=== PATIENT | male | born 1960 | race African-American/Black ===

== ENCOUNTER 2016-05-22 13:25 | Emergency (ER) | payer MEDICARE, MEDICAID ==
--- NOTE | 2016-05-22 13:51 | ER Document Report ---
ED Medical Screen (RME) - General Stated Complaint: DIFFICULTY BREATHING Notes: 55 yo male c/o shortness of breath x 2 days. no fever. + hx/o CHF. diagnosed with bronchitis + labored respiratory effort. coarse breath sounds throughout. Sat 97% TRAVEL OUTSIDE OF THE [place] IN LAST 30 DAYS: No - Related Data Allergies/Adverse Reactions: No Known Allergies Allergy (Verified 05/22/16 13:49) Past Medical History - Past Medical History Cardiac Medical History: Reports: Hx Congestive Heart Failure, Hx Coronary Artery Disease, Hx Hypercholesterolemia, Hx Hypertension Pulmonary Medical History: Denies: Hx Tuberculosis Psychiatric Medical History: Denies: Hx Depression Past Surgical History: Reports: Hx Cardiac Catheterization - x3, Hx Coronary Stent - Immunizations Immunizations up to date: Yes Hx Diphtheria, Pertussis, Tetanus Vaccination: Yes Physical Exam - Vital signs Vitals: Temp Pulse Resp BP Pulse Ox 97.8 F 98 28 H 109/88 H 98 05/22/16 13:47 05/22/16 13:47 05/22/16 13:47 05/22/16 13:47 05/22/16 13:47 Course - Vital Signs Vital signs: Temp Pulse Resp BP Pulse Ox 97.8 F 98 28 H 109/88 H 98 05/22/16 13:47 05/22/16 13:47 05/22/16 13:47 05/22/16 13:47 05/22/16 13:47
[2016-05-22] MEDS ORDERED: ALBUTEROL SULFATE 0.083% NEB 2.5 MG/3 ML AMPUL NEB ONE (13:53)
[2016-05-22 14:22] LABS: ABSOLUTE BASOPHILS # (AUTO) 0.1 10^3/uL (0.0-0.2); ABSOLUTE EOSINOPHILS # (AUTO) 0.1 10^3/uL (0.0-0.6); ABSOLUTE LYMPHOCYTES (AUTO) 1.9 10^3/uL (0.5-4.7); ABSOLUTE MONOCYTES (AUTO) 0.5 10^3/uL (0.1-1.4); ABSOLUTE NEUT (AUTO) 3.8 10^3/uL (1.7-8.2); BASOPHILS % (AUTO) 1.1 % (0-2); EOSINOPHILS % (AUTO) 0.9 % (0-6); HEMATOCRIT 44.8 % (37.9-51.0); HEMOGLOBIN 14.4 g/dL (13.5-17.0); HGB HCT DIFFERENCE -1.6; LYMPHOCYTES % (AUTO) 30.3 % (13-45); MEAN CORPUSCULAR HEMOGLOBIN 30.2 pg (27.0-33.4); MEAN CORPUSCULAR HGB CONC 32.1 g/dL (32.0-36.0); MEAN CORPUSCULAR VOLUME 94 fl (80-97); MONOCYTES % (AUTO) 8.3 % (3-13); RED BLOOD COUNT 4.76 10^6/uL (4.35-5.55); RED CELL DISTRIBUTION WIDTH 15.3 % (11.5-14.0); SEGMENTED NEUTROPHILS % (AUTO) 59.4 % (42-78); WHITE BLOOD COUNT 6.4 10^3/uL (4.0-10.5)
[2016-05-22 14:40] LABS: ALANINE AMINOTRANSFERASE 60 U/L (21-72); ALBUMIN 3.9 g/dL (3.5-5.0); ALKALINE PHOSPHATASE 95 U/L (38-126); ANION GAP 12 (5-19); ASPARTATE AMINO TRANSFERASE 47 U/L (17-59); BILIRUBIN,TOTAL 1.8 mg/dL (0.2-1.3); BLOOD UREA NITROGEN 23 mg/dL (7-20); CALCIUM 9.2 mg/dL (8.4-10.2); CARBON DIOXIDE 23 mmol/L (22-30); CHLORIDE 111 mmol/L (98-107); CREATININE RESULT 1.33 mg/dL (0.52-1.25); GLUCOSE 89 mg/dL (75-110); POTASSIUM 4.9 mmol/L (3.6-5.0); SODIUM 145.5 mmol/L (137-145); TOTAL PROTEIN 6.6 g/dL (6.3-8.2)
--- NOTE | 2016-05-22 19:04 | ER Document Report ---
ED General - General Chief Complaint: Breathing Difficulty Stated Complaint: DIFFICULTY BREATHING Notes: Patient is a 55-year-old male with past medical history of hypertension, hyperlipidemia, CHF who presents with 2 weeks of progressively worsening shortness of breath. Describes it as a constant symptom that is worsened by exertion. Nothing improves his symptoms. States is taking all medications including his Lasix as directed. He was seen in urgent care 2 weeks ago and diagnosed with bronchitis but states that it has still not gotten better. Denies any associated chest pain, nausea, vomiting or syncope TRAVEL OUTSIDE OF THE [place] IN LAST 30 DAYS: No - Related Data Allergies/Adverse Reactions: No Known Allergies Allergy (Verified 05/22/16 13:49) Past Medical History - General Information source: Patient - Social History Smoking Status: Current Every Day Smoker Chew tobacco use (# tins/day): No Frequency of alcohol use: None Drug Abuse: None Lives with: Alone Family History: Hypertension Patient has suicidal ideation: No Patient has homicidal ideation: No - Past Medical History Cardiac Medical History: Reports: Hx Congestive Heart Failure, Hx Coronary Artery Disease, Hx Hypercholesterolemia, Hx Hypertension Pulmonary Medical History: Reports: Hx Bronchitis, Hx COPD Denies: Hx Tuberculosis Renal/ Medical History: Denies: Hx Peritoneal Dialysis Psychiatric Medical History: Denies: Hx Depression Past Surgical History: Reports: Hx Cardiac Catheterization - x3, Hx Cardiac Surgery - pacemaker, Hx Coronary Stent - Immunizations Immunizations up to date: Yes Hx Diphtheria, Pertussis, Tetanus Vaccination: Yes Hx Pneumococcal Vaccination: 11/12/12 Review of Systems - Review of Systems Notes: Constitutional: Negative for fever. HENT: Negative for sore throat. Eyes: Negative for visual changes. Cardiovascular: Negative for chest pain. Respiratory: Positive for shortness of breath. Gastrointestinal: Negative for abdominal pain, vomiting or diarrhea. Genitourinary: Negative for dysuria. Musculoskeletal: Negative for back pain. Skin: Negative for rash. Neurological: Negative for headaches, weakness or numbness. 10 point ROS negative except as marked above and in HPI. Physical Exam - Vital signs Vitals: Temp Pulse Resp BP Pulse Ox 97.8 F 98 28 H 109/88 H 98 05/22/16 13:47 05/22/16 13:47 05/22/16 13:47 05/22/16 13:47 05/22/16 13:47 Interpretation: Tachypneic Notes: PHYSICAL EXAMINATION: GENERAL: Well-appearing, well-nourished and in no acute distress. HEAD: Atraumatic, normocephalic. EYES: Pupils equal round and reactive to light, extraocular movements intact, sclera anicteric, conjunctiva are normal. ENT: nares patent, oropharynx clear without exudates. Moist mucous membranes. NECK: Normal range of motion, supple without lymphadenopathy LUNGS: Mild tachypnea. Breath sounds clear to auscultation bilaterally and equal. No wheezes rales or rhonchi. HEART: Regular rate and rhythm without murmurs ABDOMEN: Soft, nontender, normoactive bowel sounds. No guarding, no rebound. No masses appreciated. EXTREMITIES: Normal range of motion, no pitting or edema. No cyanosis. NEUROLOGICAL: No focal neurological deficits. Moves all extremities spontaneously and on command. PSYCH: Normal mood, normal affect. SKIN: Warm, Dry, normal turgor, no rashes or lesions noted. Course - Re-evaluation Re-evalutation: 05/22/16 19:00 Patient presents with complaints of shortness of breath and cough worsening since onset 2 weeks ago. Overall nontoxic in appearance, no labored respirations. No retractions. Scattered rhonchi. Chest x-ray shows vascular congestion similar to a x-ray from 2 months ago. His proBNP is similar to his baseline. He has no overt lower extremity edema. Not hypoxemic. Will obtain an EKG and troponin has not of these were obtained in triage and patient's cardiac history and complaints. Patient was ambulated on pulse oximetry and did not drop her saturations below 95% off oxygen. 05/22/16 21:17 Troponin has up trended the patient continues to deny chest pain. Shortness of breath relatively unchanged. Patient is on telemetry. Aspirin has been administered. Will give Lovenox. [facility] 05/23/16 03:12 Patient continues to be nontoxic in appearance, mild increased work of breathing. Will give a dose of IV Lasix at this time. He continues to be pending for transfer to [facility]. - Vital Signs Vital signs: Temp Pulse Resp BP Pulse Ox 98.4 F 92 20 125/89 H 100 05/23/16 02:00 05/23/16 02:00 05/23/16 02:00 05/23/16 02:00 05/23/16 02:00 - Laboratory Result Diagrams: 05/22/16 13:55 05/22/16 13:55 Laboratory results interpreted by me: 05/22/16 05/22/16 05/22/16 13:55 13:55 13:55 RDW 15.3 H Sodium 145.5 H Chloride 111 H BUN 23 H Creatinine 1.33 H Est GFR (Non-Af Amer) 56 L Total Bilirubin 1.8 H NT-Pro-B Natriuret Pep 9500 H - Diagnostic Test Radiology reviewed: Image reviewed, Reports reviewed Radiology results interpreted by me: 05/22/16 19:05 Chest x-ray: Vascular congestion without overt pulmonary edema - EKG Interpretation by Me Additional EKG results interpreted by me: 05/23/16 03:13 Sinus rhythm. [address] elevations or depressions. QTC 423. Discharge - Discharge Clinical Impression: Dyspnea on exertion, Elevated troponin level Condition: Fair [facility]
[2016-05-22] MEDS ORDERED: ASPIRIN 81 MG TABLET, CHEWABLE PO ONE (19:53)
[2016-05-22] MEDS: ENOXAPARIN SODIUM INJ 80 MG/0.8 ML DISP.SYRIN SUBCUT SCH (23:55)
[2016-05-23] MEDS ORDERED: IPRATROPIUM/ALBUTEROL 0.5-2.5 MG/3 ML AMPUL NEB ONE (02:13)
[2016-05-23] MEDS ORDERED: FUROSEMIDE INJ/PF 40 MG/4 ML SDV IV ONE (03:06)
--- NOTE | 2016-05-23 09:35 | ER Document Report ---
Doctor's Note Notes: 05/23/16 09:35 pt having nstemi, stable at this time, repeatr xray pending
[2016-05-23] MEDS: ENOXAPARIN SODIUM INJ 80 MG/0.8 ML DISP.SYRIN SUBCUT SCH (09:54)
--- NOTE | 2016-05-23 11:36 | EKG REPORT ---
SEVERITY:- ABNORMAL ECG - SINUS RHYTHM PROBABLE INFERIOR INFARCT, AGE INDETERMINATE LATERAL INFARCT, AGE INDETERMINATE : Confirmed by: Rd Johnson 23-May-2016 11:35:45
--- NOTE | 2016-05-23 11:37 | EKG REPORT ---
SEVERITY:- ABNORMAL ECG - SINUS TACHYCARDIA PROBABLE LEFT ATRIAL ABNORMALITY INFERIOR INFARCT, OLD LATERAL INFARCT, AGE INDETERMINATE : Confirmed by: Rd Johnson 23-May-2016 11:36:22
[2016-05-23 14:55] VITALS: BP 112/90
== END 2016-05-23 15:48 | disposition short-term general hospital (02) ==
LOC: ER 13:25
DX: R06.00 Dyspnea, unspecified (principal); R74.8 Abnormal levels of other serum enzymes; F17.200 Nicotine dependence, unspecified, uncomplicated; I50.9 Heart failure, unspecified; I11.0 Hypertensive heart disease with heart failure; E78.00 Pure hypercholesterolemia, unspecified; I25.10 Atherosclerotic heart disease of native coronary artery without angina pectoris
CPT/HCPCS: 93005; 94640 ×2; 99285; 96372; 96374; 36415; 85025; 80053; 84484; 83880; 71020 ×2; 93010; A9270 ×3; J1940; J1650 ×2; J7620

== ENCOUNTER 2016-07-07 19:13 | Emergency (ER) | payer MEDICARE, MEDICAID ==
[2016-07-07] MEDS ORDERED: ASPIRIN 81 MG TABLET, CHEWABLE PO ONE (19:28)
[2016-07-07 19:54] LABS: PROTHROMBIN TIME 18.5 SEC (11.4-15.4)
[2016-07-07 20:06] LABS: ALANINE AMINOTRANSFERASE 241 U/L (21-72); ALBUMIN 3.4 g/dL (3.5-5.0); ALKALINE PHOSPHATASE 157 U/L (38-126); ANION GAP 14 (5-19); ASPARTATE AMINO TRANSFERASE 160 U/L (17-59); BILIRUBIN,TOTAL 2.1 mg/dL (0.2-1.3); BLOOD UREA NITROGEN 20 mg/dL (7-20); CALCIUM 8.6 mg/dL (8.4-10.2); CARBON DIOXIDE 17 mmol/L (22-30); CHLORIDE 112 mmol/L (98-107); CREATINE KINASE 115 U/L (55-170); GLUCOSE 101 mg/dL (75-110); POTASSIUM 4.2 mmol/L (3.6-5.0); SODIUM 142.6 mmol/L (137-145); TOTAL PROTEIN 5.9 g/dL (6.3-8.2)
[2016-07-07 20:12] LABS: ABSOLUTE BASOPHILS # (AUTO) 0.1 10^3/uL (0.0-0.2); ABSOLUTE EOSINOPHILS # (AUTO) 0.1 10^3/uL (0.0-0.6); ABSOLUTE LYMPHOCYTES (AUTO) 2.8 10^3/uL (0.5-4.7); ABSOLUTE MONOCYTES (AUTO) 0.7 10^3/uL (0.1-1.4); ABSOLUTE NEUT (AUTO) 2.3 10^3/uL (1.7-8.2); BASOPHILS % (AUTO) 1.3 % (0-2); EOSINOPHILS % (AUTO) 1.1 % (0-6); HEMATOCRIT 38.3 % (37.9-51.0); HEMOGLOBIN 12.4 g/dL (13.5-17.0); HGB HCT DIFFERENCE -1.1; LYMPHOCYTES % (AUTO) 47.1 % (13-45); MEAN CORPUSCULAR HEMOGLOBIN 29.4 pg (27.0-33.4); MEAN CORPUSCULAR HGB CONC 32.5 g/dL (32.0-36.0); MEAN CORPUSCULAR VOLUME 90 fl (80-97); MONOCYTES % (AUTO) 11.2 % (3-13); RED BLOOD COUNT 4.23 10^6/uL (4.35-5.55); SEGMENTED NEUTROPHILS % (AUTO) 39.3 % (42-78); WHITE BLOOD COUNT 5.9 10^3/uL (4.0-10.5)
[2016-07-07 20:17] LABS: CREATINE KINASE MB 0.53 ng/mL (<4.55); TROPONIN I 0.017 ng/mL
[2016-07-07] MEDS ORDERED: FUROSEMIDE INJ/PF 40 MG/4 ML SDV IV ONE (20:37)
--- NOTE | 2016-07-07 20:39 | ER Document Report ---
ED Respiratory Problem - General Chief Complaint: Shortness Of Breath Stated Complaint: SHORTNESS OF BREATH Notes: The patient is a 55-year-old male, past medical history CHF, presents from home by EMS with 2 days of shortness of breath. He is requesting oxygen at home. The patient is taking his daily 40 mg Lasix and has not had any leg swelling. Denies fevers, cough, nausea, vomiting, chest pain, shortness of breath, rash or abdominal pain. TRAVEL OUTSIDE OF THE [place] IN LAST 30 DAYS: No - Related Data Allergies/Adverse Reactions: No Known Allergies Allergy (Verified 05/22/16 13:49) Past Medical History - General Information source: Patient - Social History Smoking Status: Current Every Day Smoker Family History: Hypertension - Past Medical History Cardiac Medical History: Reports: Hx Congestive Heart Failure, Hx Coronary Artery Disease, Hx Hypercholesterolemia, Hx Hypertension Pulmonary Medical History: Reports: Hx Bronchitis, Hx COPD Denies: Hx Tuberculosis Renal/ Medical History: Denies: Hx Peritoneal Dialysis Psychiatric Medical History: Denies: Hx Depression Past Surgical History: Reports: Hx Cardiac Catheterization - x3, Hx Cardiac Surgery - pacemaker, Hx Coronary Stent - Immunizations Immunizations up to date: Yes Hx Diphtheria, Pertussis, Tetanus Vaccination: Yes Hx Pneumococcal Vaccination: 11/12/12 Review of Systems - Review of Systems Notes: REVIEW OF SYSTEMS: CONSTITUTIONAL: -fevers, -chills EENT: -eye pain, -difficulty swallowing, -nasal congestion CARDIOVASCULAR: -chest pain, -syncope. RESPIRATORY: -cough, +SOB GASTROINTESTINAL: -abdominal pain, - nausea, -vomiting, -diarrhea GENITOURINARY: -dysuria, -hematuria MUSCULOSKELETAL: -back pain, -neck pain SKIN: -rash or skin lesions. HEMATOLOGIC: -easy bruising or bleeding. LYMPHATIC: -swollen, enlarged glands. NEUROLOGICAL: -altered mental status or loss of consciousness, -headache, - neurologic symptoms PSYCHIATRIC: -anxiety, -depression. ALL OTHER SYSTEMS REVIEWED AND NEGATIVE. Physical Exam - Vital signs Vitals: Resp 22 H 07/07/16 19:22 - Notes Notes: PHYSICAL EXAMINATION: GENERAL: Well-appearing, well-nourished and in no acute distress. HEAD: Atraumatic, normocephalic. EYES: Pupils equal round and reactive to light, extraocular movements intact, sclera anicteric, conjunctiva are normal. ENT: nares patent, oropharynx clear without exudates. Moist mucous membranes. NECK: Normal range of motion, supple without lymphadenopathy LUNGS: Breath sounds clear to auscultation bilaterally and equal. No wheezes rales or rhonchi. No respiratory distress. HEART: Regular rate and rhythm without murmurs ABDOMEN: Soft, nontender, normoactive bowel sounds. No guarding, no rebound. No masses appreciated. EXTREMITIES: Normal range of motion, no pitting or edema. No cyanosis. NEUROLOGICAL: Cranial nerves grossly intact. Normal speech, normal gait. Normal sensory, motor, and reflex exams. PSYCH: Normal mood, normal affect. SKIN: Warm, Dry, normal turgor, no rashes or lesions noted. Course - Re-evaluation Re-evalutation: Patient in no respiratory distress. X-ray does not show any evidence of infiltrates or fluid overload. He did not take his evening Lasix dose. Provided him with 40 IV Lasix to help out with pulmonary edema. After IV Lasix, he was ambulated throughout the emergency room and his oxygenation did not dip below 95%. Labs are unremarkable. EKG is unchanged and troponin is negative. Symptoms atypical for PE, ACS or aortic dissection at this time. He does not qualify for home oxygen at this time. Monitor captured pulse ox of 86%, but this was not a good pleth. To recheck this, he was ambulated around and his pulse ox remained above 96%. Will discharge home with follow-up with his primary care physician. Given strict return precautions. - Vital Signs Vital signs: Temp Pulse Resp BP Pulse Ox 28 H 119/92 H 86 L 07/07/16 22:11 07/07/16 22:11 07/07/16 22:11 - Laboratory Result Diagrams: 07/07/16 19:35 07/07/16 19:35 Laboratory results interpreted by me: 07/07/16 07/07/16 07/07/16 19:35 19:35 19:35 RBC 4.23 L Hgb 12.4 L RDW 16.0 H Seg Neutrophils % 39.3 L Lymphocytes % 47.1 H PT 18.5 H Chloride 112 H Carbon Dioxide 17 L Total Bilirubin 2.1 H AST 160 H ALT 241 H Alkaline Phosphatase 157 H Total Protein 5.9 L Albumin 3.4 L - Diagnostic Test Radiology reviewed: Image reviewed, Reports reviewed Radiology results interpreted by me: CXR: Cardiomegaly, NAD - EKG Interpretation by Me EKG shows normal: Sinus rhythm, [place], Intervals, QRS Complexes, ST-T Waves - Slight elevations in V3-V4, similar to previous EKG When compared to previous EKG there are: No significant change Discharge - Discharge Clinical Impression: Dyspnea Qualifiers: Dyspnea type: unspecified Qualified Code(s): R06.00 - Dyspnea, unspecified Condition: Good Disposition: HOME, SELF-CARE Additional Instructions: SHORTNESS OF BREATH OR DYSPNEA: You were evaluated for shortness of breath, or dyspnea. Dyspnea has many causes, and some are more serious than others. Sometimes it's impossible to diagnose the cause of dyspnea with the tests that are available on an emergency basis. Based on our evaluation today, you do not need hospitalization now. We found no evidence of pneumonia, collapsed lung, blood clots in the lung, tumors , or heart failure. Causes of non-specific dyspnea can include asthma or bronchospasm, hyperventilation, emotional distress, heart disease, emphysema, fibrosis of the lung, and stiffness of the chest wall. In healthy individuals with a single episode, it's sometimes reasonable to do nothing but wait to see if the problem occurs again. Additional tests used to evaluate dyspnea can include cardiac stress testing, echocardiography, pulmonary function testing, CAT scan of the chest, bronchoscopy or pulmonary biopsy. Return if shortness of breath persists or worsens, or if you develop chest pain, fever, cough, confusion, or fainting. NORMAL EXAM AND WORKUP: At this time, your examination and workup show no significant abnormality. No significant abnormal physical findings were noted. All laboratory, EKG, and imaging (x-ray, CT scans, ultrasound) studies that were ordered show no significant abnormality. Although your examination and all studies that were ordered showed no significant abnormal finding, there are no examinations and no studies that are 100% accurate. There is always the possibility that some abnormality could exist and not be detected with physical examination or within the limits and capabilities of laboratory and other studies. You should return or follow up as you were instructed on your visit today for further evaluation if your symptoms do not resolve. FOLLOW-UP CARE: If you have been referred to a physician for follow-up care, call the physician s office for an appointment as you were instructed or within the next two days. If you experience worsening or a significant change in your symptoms, notify the physician immediately or return to the Emergency Department at any time for re-evaluation. Referrals: SAMIR ESCALONA MD [Primary Care Provider] - Follow up as needed
--- NOTE | 2016-07-07 20:47 | EKG REPORT ---
SEVERITY:- ABNORMAL ECG - SINUS RHYTHM PROBABLE LEFT ATRIAL ABNORMALITY INFERIOR INFARCT, OLD LATERAL INFARCT, AGE INDETERMINATE : Confirmed by: Nayely Rodriguez MD 07-Jul-2016 20:47:01
[2016-07-07 22:13] VITALS: BP 119/92
--- NOTE | 2016-07-08 13:48 | EKG REPORT ---
SEVERITY:- ABNORMAL ECG - SINUS RHYTHM INFERIOR INFARCT, OLD LATERAL INFARCT, AGE INDETERMINATE : Confirmed by: Yogesh Caldera MD 08-Jul-2016 13:47:55
== END 2016-07-07 22:30 | disposition home or self-care (01) ==
LOC: ER 19:13
DX: R06.00 Dyspnea, unspecified (principal); R06.02 Shortness of breath; F17.200 Nicotine dependence, unspecified, uncomplicated; I50.9 Heart failure, unspecified; I25.10 Atherosclerotic heart disease of native coronary artery without angina pectoris; E78.00 Pure hypercholesterolemia, unspecified; I11.0 Hypertensive heart disease with heart failure; Z95.0 Presence of cardiac pacemaker
CPT/HCPCS: 93005; 99285; 96374; 36415; 82553; 82550; 85025; 85610; 80053; 84484; 71010; 93010; A9270; J1940

== ENCOUNTER 2016-10-05 16:05 | Inpatient (IN) | payer MEDICARE, MEDICAID ==
[2016-10-05] MEDS ORDERED: IPRATROPIUM/ALBUTEROL 0.5-2.5 MG/3 ML AMPUL NEB ONE (16:20)
[2016-10-05] MEDS ORDERED: METHYLPREDNISOLONE INJ 125 MG/2 ML SDV IV ONE (16:20)
[2016-10-05] MEDS ORDERED: ALBUTEROL SULFATE 0.083% NEB 2.5 MG/3 ML AMPUL NEB ONE (16:20)
--- NOTE | 2016-10-05 16:26 | ER Document Report ---
ED Medical Screen (RME) - General Chief Complaint: Shortness Of Breath Stated Complaint: DIFFICULTY BREATHING Time Seen by Provider: 10/05/16 16:17 Mode of Arrival: Ambulatory Information source: Patient TRAVEL OUTSIDE OF THE [place] IN LAST 30 DAYS: No - HPI Patient complains to provider of: Difficulty Breathing Onset: Other - 3 days Onset/Duration: Persistent Associated Symptoms: Cough (productive), Fever, Shortness of breath Notes: 10/05/16 16:25 55-year-old male who presents to the emergency room complaining of difficulty breathing with productive cough and subjective fevers 3 days, he recently quit smoking approximately 1 week ago, patient is tachypneic and hypoxic in triage area with a pulse ox of 80% on room air, he was immediately taken to the trauma one room and discussed with emergency physician in the main department who assumed his care - Related Data Allergies/Adverse Reactions: No Known Allergies Allergy (Verified 10/05/16 16:15) Past Medical History - Past Medical History Cardiac Medical History: Reports: Hx Congestive Heart Failure, Hx Coronary Artery Disease, Hx Hypercholesterolemia, Hx Hypertension Pulmonary Medical History: Reports: Hx Bronchitis, Hx COPD Denies: Hx Tuberculosis Renal/ Medical History: Denies: Hx Peritoneal Dialysis Psychiatric Medical History: Denies: Hx Depression Past Surgical History: Reports: Hx Cardiac Catheterization - x3, Hx Cardiac Surgery - pacemaker, Hx Coronary Stent - Immunizations Immunizations up to date: Yes Hx Diphtheria, Pertussis, Tetanus Vaccination: Yes Physical Exam - Vital signs Vitals: Resp Pulse Ox 32 H 82 L 10/05/16 16:20 10/05/16 16:20 Course - Vital Signs Vital signs: Temp Pulse Resp BP Pulse Ox 32 H 87 L 10/05/16 16:21 10/05/16 16:21
--- NOTE | 2016-10-05 16:29 | ER Document Report ---
ED Respiratory Problem - General Mode of Arrival: Ambulatory TRAVEL OUTSIDE OF THE [place] IN LAST 30 DAYS: No - HPI Patient complains to provider of: Chest pain, CHF, COPD, Cough, Short of breath Onset: Other - Refer to HPI note Context: Hx CHF, Hx COPD, Smoker - recently quit At home treatment: Bronchodilators <ADEN ARREDONDO - Last Filed: 10/05/16 18:49> <ALEX SCHILLING - Last Filed: 10/05/16 22:26> - General Chief Complaint: Shortness Of Breath Stated Complaint: DIFFICULTY BREATHING Time Seen by Provider: 10/05/16 16:17 Notes: Patient is a 55 year old male presenting to the emergency department for difficulty breathing. Patient has had a productive cough, fevers, and shortness of breath for 3 days. Patient states he also recently quit smoking approximately 1 week ago. Patient was tachypneic and hypoxic in triage with a pulse ox of 80% on room air. Patient states he also has some mild chest pains. Patient recently started antibiotics for his cold-like symptoms 3 days ago. Patient also states he has been taking DayQuil and Mucinex. Patient does not use oxygen at home. Patient states he had a nebulizer treatment today which helped some initially. Patient was hospitalized at [facility] May 2016 for similar symptoms. Patient has a history of CHF, CAD, hypertension, hypercholesterolemia, COPD, pacemaker, and cardiac catheterization x3 with a stent x1. Patient has no known drug allergies. Patient's laboratory phlebotomist is Dr. Johnson. (ADEN ARREDONDO) - Related Data Allergies/Adverse Reactions: No Known Allergies Allergy (Verified 10/05/16 16:15) Home Medications: Current Home Medications Atorvastatin Calcium [Atorvastatin Calcium] 40 mg PO DAILY 10/05/16 [History] Ciprofloxacin HCl [Cipro] 500 mg PO BID 10/05/16 [History] Past Medical History - General Information source: Patient - Social History Smoking Status: Former Smoker Frequency of alcohol use: None Drug Abuse: None Family History: Hypertension Patient has suicidal ideation: No Patient has homicidal ideation: No - Past Medical History Cardiac Medical History: Reports: Hx Congestive Heart Failure, Hx Coronary Artery Disease, Hx Hypercholesterolemia, Hx Hypertension Pulmonary Medical History: Reports: Hx Bronchitis, Hx COPD Past Surgical History: Reports: Hx Cardiac Catheterization - x3, Hx Cardiac Surgery - pacemaker, Hx Coronary Stent - Immunizations Immunizations up to date: Yes Hx Diphtheria, Pertussis, Tetanus Vaccination: Yes Hx Pneumococcal Vaccination: 11/12/12 <ADEN ARREDONDO - Last Filed: 10/05/16 18:49> Review of Systems - Review of Systems Constitutional: No symptoms reported EENT: No symptoms reported Cardiovascular: No symptoms reported Respiratory: See HPI Gastrointestinal: No symptoms reported Genitourinary: No symptoms reported Male Genitourinary: No symptoms reported Musculoskeletal: No symptoms reported Skin: No symptoms reported Hematologic/Lymphatic: No symptoms reported Neurological/Psychological: No symptoms reported -: Yes All other systems reviewed and negative <ADEN ARREDONDO - Last Filed: 10/05/16 18:49> Physical Exam - Vital signs Interpretation: Hypertensive, Hypoxic, Tachypneic - General General appearance: Alert In distress: Moderate - resp distress - HEENT Head: Normocephalic, Atraumatic Eyes: Normal Pupils: PERRL - Respiratory Respiratory status: Respiratory distress, Depressed respirations Breath sounds: Wheezing - Abdominal Inspection: Normal Tenderness: Nontender - Extremities General upper extremity: Normal inspection, Normal ROM General lower extremity: Normal inspection, Normal ROM - Neurological Neuro grossly intact: Yes Cognition: Normal Orientation: AAOx4 Kamaljit Coma Scale Eye Opening: Spontaneous [place] Coma Scale Verbal: Oriented Kamaljit Coma Scale Motor: Obeys Commands Kamaljit Coma Scale Total: 15 - Skin Skin Temperature: Warm Skin Moisture: Dry Skin Color: Normal <ALEX SCHILLING - Last Filed: 10/05/16 22:26> - Vital signs Vitals: Resp Pulse Ox 32 H 82 L 10/05/16 16:20 10/05/16 16:20 Course - Laboratory Result Diagrams: 10/05/16 16:37 10/05/16 16:37 - Consults Dr. Toussaint Time consulted: 17:58 Consulted provider: will see as inpatient <ADEN ARREDONDO - Last Filed: 10/05/16 18:49> - Laboratory Result Diagrams: 10/05/16 16:37 10/05/16 16:37 <ALEX SCHILLING - Last Filed: 10/05/16 22:26> - Re-evaluation Re-evalutation: 10/05/16 Patient presents with respiratory distress. Patient was given nebulizer, Solu- Medrol with some improvement. However, patient still has some difficulty breathing. Patient recently stopped taking Lasix. BNP is over 11,000. This is likely a mixed COPD CHF exacerbation. Patient still with hypoxemia with exertion. He will be referred to the hospitalist service for admission and further evaluation of his symptoms. Stable time of admission. (ALEX SCHILLING) - Vital Signs Vital signs: Temp Pulse Resp BP Pulse Ox 97.5 F 92 28 H 113/88 H 100 10/05/16 20:57 10/05/16 21:35 10/05/16 21:35 10/05/16 21:03 10/05/16 21:35 - Laboratory Laboratory results interpreted by me: 10/05/16 10/05/16 10/05/16 16:37 16:37 16:37 MCHC 31.3 L RDW 19.2 H BUN 23 H Glucose 168 H Total Bilirubin 1.4 H AST 88 H ALT 123 H Alkaline Phosphatase 143 H NT-Pro-B Natriuret Pep 94368 H Digoxin 10/05/16 16:37 MCHC RDW BUN Glucose Total Bilirubin AST ALT Alkaline Phosphatase NT-Pro-B Natriuret Pep Digoxin < 0.40 L - Consults Dr. Toussaint Reason for consultation: 10/05/16 17:[address] Toussaint, he will admit the patient. (ADEN ARREDONDO) Discharge <ADEN ARREDONDO - Last Filed: 10/05/16 18:49> - Discharge Admitting Provider: Hospitalist - [facility] Unit Admitted: [facility] <ALEX SCHILLING - Last Filed: 10/05/16 22:26> - Discharge Clinical Impression: COPD exacerbation, Hypoxemia Congestive heart failure Qualifiers: Congestive heart failure type: unspecified congestive heart failure type Congestive heart failure chronicity: acute on chronic Qualified Code(s): I50.9 - Heart failure, unspecified Condition: Stable Scribe Attestation: 10/05/16 22:26 I personally performed the services described in the documentation, reviewed and edited the documentation which was dictated to the scribe in my presence, and it accurately records my words and actions. (ALEX SCHILLING) Scribe Documentation - Scribe Written by Scribe:: Aden Arredondo, Jorge 10/05/16 16:55 acting as scribe for :: Vanessa <ADEN ARREDONDO - Last Filed: 10/05/16 18:49>
[2016-10-05 16:56] LABS: ABSOLUTE BASOPHILS # (AUTO) 0.1 10^3/uL (0.0-0.2); ABSOLUTE EOSINOPHILS # (AUTO) 0.1 10^3/uL (0.0-0.6); ABSOLUTE MONOCYTES (AUTO) 0.4 10^3/uL (0.1-1.4); ABSOLUTE NEUT (AUTO) 4.5 10^3/uL (1.7-8.2); EOSINOPHILS % (AUTO) 0.9 % (0-6); HEMATOCRIT 45.7 % (37.9-51.0); HEMOGLOBIN 14.3 g/dL (13.5-17.0); HGB HCT DIFFERENCE -2.8; LYMPHOCYTES % (AUTO) 28.4 % (13-45); MEAN CORPUSCULAR HEMOGLOBIN 28.5 pg (27.0-33.4); MEAN CORPUSCULAR HGB CONC 31.3 g/dL (32.0-36.0); MEAN CORPUSCULAR VOLUME 91 fl (80-97); MONOCYTES % (AUTO) 5.6 % (3-13); RED BLOOD COUNT 5.03 10^6/uL (4.35-5.55); RED CELL DISTRIBUTION WIDTH 19.2 % (11.5-14.0); SEGMENTED NEUTROPHILS % (AUTO) 64.1 % (42-78)
[2016-10-05 17:14] LABS: ALANINE AMINOTRANSFERASE 123 U/L (21-72); ALBUMIN 3.9 g/dL (3.5-5.0); ALKALINE PHOSPHATASE 143 U/L (38-126); ANION GAP 12 (5-19); ASPARTATE AMINO TRANSFERASE 88 U/L (17-59); BILIRUBIN,DIRECT 0.4 mg/dL (0.0-0.4); BILIRUBIN,TOTAL 1.4 mg/dL (0.2-1.3); BLOOD UREA NITROGEN 23 mg/dL (7-20); CALCIUM 8.9 mg/dL (8.4-10.2); CARBON DIOXIDE 22 mmol/L (22-30); CHLORIDE 107 mmol/L (98-107); CREATINE KINASE 113 U/L (55-170); CREATININE RESULT 1.25 mg/dL (0.52-1.25); GLUCOSE 168 mg/dL (75-110); POTASSIUM 4.6 mmol/L (3.6-5.0); SODIUM 140.5 mmol/L (137-145); TOTAL PROTEIN 7.3 g/dL (6.3-8.2)
--- NOTE | 2016-10-05 17:15 | RADIOLOGY REPORT (SQ) ---
EXAM DESCRIPTION: CHEST SINGLE VIEW COMPLETED DATE/TIME: 10/05/2016 5:07 pm REASON FOR STUDY: db COMPARISON: 07/07/2016 EXAM PARAMETERS: NUMBER OF VIEWS: One view. TECHNIQUE: Single frontal radiographic view of the chest acquired. RADIATION DOSE: NA LIMITATIONS: None. FINDINGS: LUNGS AND PLEURA: No opacities, masses or pneumothorax. No pleural effusion. MEDIASTINUM AND HILAR STRUCTURES: No masses. Contour normal. HEART AND VASCULAR STRUCTURES: Cardiomegaly. No pulmonary vascular distention. BONES: No acute findings. HARDWARE: Left chest AICD. EKG leads overlie the chest. OTHER: No other significant finding. IMPRESSION: Stable cardiomegaly. No pulmonary vascular congestion or focal infiltrate. TECHNICAL DOCUMENTATION: JOB ID: [id number]
[2016-10-05 17:26] LABS: TROPONIN I 0.012 ng/mL
[2016-10-05] MEDS ORDERED: FUROSEMIDE INJ/PF 40 MG/4 ML SDV IV ONE (17:57)
[2016-10-05] MEDS ORDERED: ACETAMINOPHEN 325 MG TABLET PO PRN (18:39)
[2016-10-05] MEDS ORDERED: ONDANSETRON HCL INJ/PF 4 MG/2 ML SDV IV PRN (18:39)
[2016-10-05] MEDS ORDERED: LORAZEPAM INJ 2 MG/1 ML VIAL IV ONE (18:55)
--- NOTE | 2016-10-05 18:56 | PDOC H&P ---
History of Present Illness Admission Date/PCP: 10/05/16 18:42 SAMIR ESCALONA MD Patient complains of: Shortness of breath History of Present Illness: ADAIR MARTINES is a 55 year old male, with history of coronary artery disease, dilated cardiomyopathy, chronic congestive heart failure systolic dysfunction with ejection fraction of 15% has been dealing with increasing shortness of breath for several days. He has chronic shortness of breath on exertion due to his heart condition. He denies having any paroxysmal nocturnal dyspnea or orthopnea. For the past several days he started having increasing shortness of breath but no associated fever. There is no sinus congestion or sore throat. Cough is productive of yellowish phlegm. He started to develop wheezing. He is a chronic smoker, never been diagnosed with COPD that he is aware of, he stop smoking about a week ago. His symptoms persisted therefore presents to the hospital for evaluation. Chest x-ray did not reveal any acute infiltrate but cardiomegaly. Patient was given steroids and nebulizers and was referred for admission. Denies any chest pain , nausea vomiting, or diaphoresis. Past Medical History Cardiac Medical History: Reports: Congestive Heart Failure, Coronary Artery Disease, Hyperlipidema, Hypertension Pulmonary Medical History: Reports: Bronchitis, Chronic Obstructive Pulmonary Disease (COPD) Denies: Tuberculosis Psychiatric Medical History: Denies: Depression Past Surgical History Past Surgical History: Reports: Cardiac Catheterization - x3, Coronary Stent Social History Information Source: Patient Smoking Status: Former Smoker Frequency of Alcohol Use: Rare Hx Recreational Drug Use: Yes Drugs: None, Marijuana Hx Prescription Drug Abuse: No Family History Family History: Hypertension Parental Family History Reviewed: Yes Children Family History Reviewed: Yes Sibling(s) Family History Reviewed.: Yes Medication/Allergy Home Medications: Carvedilol [Coreg 12.5 mg Tablet] 12.5 mg PO Q12 #60 tablet 11/16/13 Digoxin [Lanoxin 0.125 mg Tablet] 0.125 mg PO DAILY #30 tablet 11/16/13 Furosemide [Lasix 20 mg Tablet] 20 mg PO BID #60 tablet 11/16/13 Clonidine HCl [Catapres] 0.2 mg PO BID #60 tablet 04/12/15 Atorvastatin Calcium [Atorvastatin Calcium] 40 mg PO DAILY 10/05/16 Ciprofloxacin HCl [Cipro] 500 mg PO BID 10/05/16 Allergies/Adverse Reactions: No Known Allergies Allergy (Verified 10/05/16 16:15) Review of Systems Constitutional: PRESENT: weakness - Generalized. ABSENT: chills, fever(s), headache(s), night sweats, weight gain, weight loss Eyes: ABSENT: visual disturbances Ears: ABSENT: hearing changes Nose, Mouth, and Throat: ABSENT: headache(s), mouth pain, sore throat Cardiovascular: PRESENT: dyspnea on exertion - Chronic. ABSENT: chest pain, edema, orthropnea, palpitations Respiratory: PRESENT: cough, dyspnea, sputum. ABSENT: hemoptysis Gastrointestinal: ABSENT: abdominal pain, constipation, diarrhea, hematemesis, hematochezia, melena, nausea, vomiting Genitourinary: ABSENT: difficulty urinating, dysuria, hematuria Musculoskeletal: ABSENT: joint swelling Integumentary: ABSENT: pruritus, rash, wounds Neurological: ABSENT: abnormal gait, abnormal speech, confusion, dizziness, focal weakness, syncope Psychiatric: ABSENT: anxiety, depression, homidical ideation, suicidal ideation Endocrine: ABSENT: cold intolerance, heat intolerance, polydipsia, polyuria Hematologic/Lymphatic: ABSENT: easy bleeding, easy bruising Physical Exam Vital Signs: Temp Pulse Resp BP Pulse Ox 97.4 F 68 22 H 108/96 H 100 10/05/16 17:42 10/05/16 16:21 10/05/16 18:32 10/05/16 18:32 10/05/16 18:32 General appearance: PRESENT: cooperative, mild distress Head exam: PRESENT: atraumatic, normocephalic Eye exam: PRESENT: conjunctiva pink, EOMI, PERRLA. ABSENT: scleral icterus Ear exam: PRESENT: normal external ear exam. ABSENT: drainage Mouth exam: PRESENT: moist, neck supple, tongue midline Throat exam: ABSENT: post pharyngeal erythema, tonsillar erythema Neck exam: ABSENT: carotid bruit, JVD, lymphadenopathy, thyromegaly Respiratory exam: PRESENT: rhonchi - Scattered bilateral, wheezes - Mild bilateral. ABSENT: rales Cardiovascular exam: PRESENT: RRR. ABSENT: diastolic murmur, rubs, systolic murmur Pulses: PRESENT: normal dorsalis pedis pul Vascular exam: PRESENT: normal capillary refill GI/Abdominal exam: PRESENT: normal bowel sounds, soft. ABSENT: distended, guarding, mass, organolmegaly, rebound, tenderness Rectal exam: PRESENT: deferred Extremities exam: PRESENT: full ROM. ABSENT: calf tenderness, clubbing, pedal edema Neurological exam: PRESENT: alert, awake, oriented to person, oriented to place , oriented to time, oriented to situation Psychiatric exam: PRESENT: appropriate affect, normal mood. ABSENT: homicidal ideation, suicidal ideation Skin exam: PRESENT: dry, intact, warm. ABSENT: cyanosis, rash Results Impressions: Chest X-Ray 10/05/16 16:20 IMPRESSION: Stable cardiomegaly. No pulmonary vascular congestion or focal infiltrate. Assessment & Plan - Diagnosis (1) Acute hypoxemic respiratory failure Is this a current diagnosis for this admission?: Yes (2) COPD exacerbation Is this a current diagnosis for this admission?: Yes (3) Chronic systolic heart failure Is this a current diagnosis for this admission?: Yes (4) Dilated cardiomyopathy Is this a current diagnosis for this admission?: Yes (5) Chronic passive congestion of liver Is this a current diagnosis for this admission?: Yes (6) Essential hypertension Is this a current diagnosis for this admission?: Yes (7) CAD (coronary artery disease) Qualifiers: Coronary Disease-Associated Artery/Lesion type: [place] artery [place] vs. transplanted heart: [place] heart Associated angina: without angina Qualified Code(s): I25.10 - Atherosclerotic heart disease of [place] coronary artery without angina pectoris Is this a current diagnosis for this admission?: Yes - Time Time Spent: 50 to 70 Minutes - Inpatient Certification Based on my medical assessment, after consideration of the patient's comorbidities, presenting symptoms, or acuity I expect that the services needed warrant INPATIENT care.: Yes I certify that my determination is in accordance with my understanding of Medicare's requirements for reasonable and necessary INPATIENT services [42 CFR 412.3e].: Yes Medical Necessity: Significant Comorbidiites Make Outpatient Treatment Too Risky , Need Close Monitoring Due to Risk of Patient Decompensation, Need For Continuous Telemetry Monitoring, Need for Nebulizer Therapy and Monitoring of Response, Risk of Complication if Not Cared For in Hospital Post Hospital Care: D/C Public Bath Attendant Documentation - Plan Summary Plan Summary: The patient will be admitted to [facility]. I will begin the patient on steroids intravenously and [id number] nebulizers. Supplemental oxygen will be given. DVT prophylaxis with Lovenox will be placed. In the meantime we will continue the BiPAP and titrate per respiratory protocol. I will begin the patient on intravenous diuretics and obtain a 2D echocardiogram. We will monitor electrolytes and creatinine. Further testing depends on the initial evaluation as outlined above.
[2016-10-05 19:26] LABS: PROTHROMBIN TIME 14.8 SEC (11.4-15.4)
[2016-10-05 19:27] LABS: PARTIAL THROMBOPLASTIN TIME 33.4 SEC (23.5-35.8)
[2016-10-05 20:32] LABS: APPEARANCE,URINE CLEAR; BILIRUBIN,URINE NEGATIVE (NEGATIVE); GLUCOSE, URINE NEGATIVE (NEGATIVE); KETONES,URINE NEGATIVE (NEGATIVE); LEUKOCYTE ESTERASE,URINE NEGATIVE (NEGATIVE); NITRITE,URINE NEGATIVE (NEGATIVE); PROTEIN,URINE 30 mg/dL (NEGATIVE); URINE SPECIFIC GRAVITY 1.004; UROBILINOGEN,URINE NEGATIVE mg/dL (<2.0)
[2016-10-05 20:42] LABS: URINE BARBITURATES SCREEN NEGATIVE; URINE METHADONE SCREEN NEGATIVE; URINE OPIATES LOW NEGATIVE; URINE PHENCYCLIDINE SCREEN NEGATIVE
[2016-10-05 21:22] LABS: VENOUS BLOOD BASE EXCESS -3.5 mmol/L; VENOUS BLOOD HCO3 23.7 mmol/L (20-32); VENOUS BLOOD PCO2 50.8 mmHg (35-63); VENOUS BLOOD PH 7.29 (7.30-7.42)
[2016-10-05] MEDS: LEVALBUTEROL HCL NEB 1.25 MG/3 ML AMPUL NEB SCH ×2 (21:34→23:48)
[2016-10-05] MEDS ORDERED: DEXTROSE 50%-WATER 25 GM/50 ML DISP.SYRIN IV PRN ×2 (22:04)
[2016-10-05] MEDS ORDERED: DEXTROSE 40% GEL 15 GM TUBE PO PRN ×2 (22:04)
[2016-10-05] MEDS ORDERED: GLUCAGON,HUMAN RECOMB 1 MG INJ SUBCUT PRN (22:04)
[2016-10-05 22:05] LABS: CREATINE KINASE MB 0.9 ng/mL (<4.55); TROPONIN I 0.015 ng/mL
[2016-10-05] MEDS ORDERED: THIAMINE HCL 100 MG TABLET PO ONE (22:45)
--- NOTE | 2016-10-05 23:07 | Progress Note ---
Provider Note Provider Note: 10/05/16: Patient admits to drinking ~ 6-pack beer/2 days, along with whiskey.
[2016-10-05 23:16] LABS: VENOUS BLOOD BASE EXCESS -4.2 mmol/L; VENOUS BLOOD HCO3 18.9 mmol/L (20-32); VENOUS BLOOD PCO2 29.8 mmHg (35-63); VENOUS BLOOD PH 7.42 (7.30-7.42)
[2016-10-05] MEDS ORDERED: THIAMINE HCL INJ 200 MG/2 ML VIAL IV PRN (23:44)
[2016-10-05] MEDS ORDERED: THIAMINE HCL 100 MG in NORMAL SALINE 50 ML IV ONE (23:59)
[2016-10-06] MEDS ORDERED: LEVALBUTEROL HCL NEB 1.25 MG/3 ML AMPUL NEB SCH (02:00)
[2016-10-06] MEDS ORDERED: THIAMINE HCL INJ 200 MG/2 ML VIAL ONE (02:06)
[2016-10-06] MEDS: CARVEDILOL 12.5 MG TABLET PO SCH ×3 (02:12→21:38)
[2016-10-06] MEDS: METHYLPREDNISOLONE INJ 125 MG/2 ML SDV IV SCH ×5 (02:15→23:06)
[2016-10-06 02:22] LABS: VENOUS BLOOD BASE EXCESS -2.5 mmol/L; VENOUS BLOOD PCO2 32.7 mmHg (35-63); VENOUS BLOOD PH 7.43 (7.30-7.42)
[2016-10-06] MEDS: IPRATROPIUM BROMIDE 0.02% NEB 0.5 MG/2.5 ML AMPUL NEB SCH ×4 (02:43→20:20)
[2016-10-06 02:58] LABS: CREATINE KINASE MB 0.7 ng/mL (<4.55); TROPONIN I 0.017 ng/mL
[2016-10-06] MEDS: LANSOPRAZOLE 30 MG TAB.RAP.DR PO SCH (06:01)
[2016-10-06] MEDS: FUROSEMIDE INJ/PF 40 MG/4 ML SDV IV SCH ×2 (06:02→17:54)
[2016-10-06 08:54] LABS: ABSOLUTE LYMPHOCYTES (AUTO) 1.3 10^3/uL (0.5-4.7); ABSOLUTE MONOCYTES (AUTO) 0.1 10^3/uL (0.1-1.4); ABSOLUTE NEUT (AUTO) 4.7 10^3/uL (1.7-8.2); BASOPHILS % (AUTO) 0.5 % (0-2); HEMATOCRIT 44.1 % (37.9-51.0); HEMOGLOBIN 13.8 g/dL (13.5-17.0); HGB HCT DIFFERENCE -2.7; LYMPHOCYTES % (AUTO) 20.6 % (13-45); MEAN CORPUSCULAR HEMOGLOBIN 28.2 pg (27.0-33.4); MEAN CORPUSCULAR HGB CONC 31.3 g/dL (32.0-36.0); MEAN CORPUSCULAR VOLUME 90 fl (80-97); MONOCYTES % (AUTO) 2.1 % (3-13); RED BLOOD COUNT 4.91 10^6/uL (4.35-5.55); RED CELL DISTRIBUTION WIDTH 18.8 % (11.5-14.0); SEGMENTED NEUTROPHILS % (AUTO) 76.8 % (42-78); WHITE BLOOD COUNT 6.1 10^3/uL (4.0-10.5)
[2016-10-06 09:11] LABS: ALANINE AMINOTRANSFERASE 112 U/L (21-72); ALBUMIN 3.5 g/dL (3.5-5.0); ALKALINE PHOSPHATASE 134 U/L (38-126); ANION GAP 14 (5-19); ASPARTATE AMINO TRANSFERASE 51 U/L (17-59); BILIRUBIN,DIRECT 0.3 mg/dL (0.0-0.4); BILIRUBIN,TOTAL 1.8 mg/dL (0.2-1.3); BLOOD UREA NITROGEN 24 mg/dL (7-20); CALCIUM 8.8 mg/dL (8.4-10.2); CARBON DIOXIDE 19 mmol/L (22-30); CHLORIDE 107 mmol/L (98-107); CREATINE KINASE 77 U/L (55-170); CREATININE RESULT 1.16 mg/dL (0.52-1.25); GLUCOSE 136 mg/dL (75-110); POTASSIUM 4.5 mmol/L (3.6-5.0); SODIUM 139.6 mmol/L (137-145); TOTAL PROTEIN 6.6 g/dL (6.3-8.2)
[2016-10-06 09:18] LABS: CREATINE KINASE MB 0.72 ng/mL (<4.55)
[2016-10-06 09:21] LABS: TROPONIN I < 0.012 ng/mL
[2016-10-06] MEDS: DOCUSATE SODIUM 100 MG CAPSULE PO SCH ×2 (10:32→17:55)
[2016-10-06] MEDS: FOLIC ACID 1 MG TABLET PO SCH (10:33)
[2016-10-06] MEDS: THIAMINE HCL 100 MG TABLET PO SCH (10:33)
[2016-10-06] MEDS: LISINOPRIL 5 MG TABLET PO SCH (10:33)
[2016-10-06] MEDS: DIGOXIN 0.125 MG TABLET PO SCH (10:33)
[2016-10-06] MEDS: ENOXAPARIN SODIUM INJ 40 MG/0.4 ML DISP.SYRIN SUBCUT SCH (10:34)
[2016-10-06] MEDS: MULTIVITAMIN TABLET PO SCH (10:34)
--- NOTE | 2016-10-06 10:39 | PDOC PROGRESS REPORT ---
Subjective Progress Note for:: 10/06/16 Subjective:: Patient is feeling better today. Shortness of breath is better. Wheezing has resolved. Denies any nausea vomiting, chest pain, diaphoresis. Reportedly last night patient is difficult to arouse however patient reports that he was just ignoring it. No reported agitation, confusion, nor tremors. Physical Exam Vital Signs: Temp Pulse Resp BP Pulse Ox 98.4 F 91 18 116/86 H 100 10/06/16 07:11 10/06/16 07:11 10/06/16 07:11 10/06/16 07:11 10/06/16 07:11 Intake & Output 10/05/16 10/06/16 10/07/16 06:59 06:59 06:59 Intake Total 40 Balance 40 Weight 69.3 kg General appearance: PRESENT: no acute distress, cooperative Head exam: PRESENT: normocephalic Eye exam: PRESENT: EOMI Mouth exam: PRESENT: moist, neck supple Neck exam: ABSENT: JVD Respiratory exam: PRESENT: clear to auscultation [place], rhonchi - Minimal bilateral. ABSENT: wheezes Cardiovascular exam: PRESENT: RRR. ABSENT: gallop GI/Abdominal exam: PRESENT: normal bowel sounds, soft. ABSENT: distended, tenderness Extremities exam: ABSENT: pedal edema Neurological exam: PRESENT: alert, awake, oriented to person, oriented to place , oriented to time, oriented to situation Skin exam: PRESENT: dry, warm. ABSENT: cyanosis Results Laboratory Results: 10/06/16 08:28 10/06/16 08:28 10/05/16 10/05/16 10/05/16 20:10 21:12 23:10 WBC RBC Hgb Hct MCV MCH MCHC RDW Plt Count Seg Neutrophils % Lymphocytes % Monocytes % Eosinophils % Basophils % Absolute Neutrophils Absolute Lymphocytes Absolute Monocytes Absolute Eosinophils Absolute Basophils VBG pH 7.29 L 7.42 VBG pCO2 50.8 29.8 L VBG HCO3 23.7 18.9 L VBG Base Excess -3.5 -4.2 Sodium Potassium Chloride Carbon Dioxide Anion Gap BUN Creatinine Est GFR ( Amer) Est GFR (Non-Af Amer) Glucose Calcium Total Bilirubin AST ALT Alkaline Phosphatase Total Protein Albumin Urine Color STRAW Urine Appearance CLEAR Urine pH 5.0 Ur Specific [place] 1.004 Urine Protein 30 H Urine Glucose (UA) NEGATIVE Urine Ketones NEGATIVE Urine Blood MODERATE H Urine Nitrite NEGATIVE Ur Leukocyte Esterase NEGATIVE Urine RBC (Auto) 0 10/06/16 10/06/16 10/06/16 02:03 08:28 08:28 WBC 6.1 RBC 4.91 Hgb 13.8 Hct 44.1 MCV 90 MCH 28.2 MCHC 31.3 L RDW 18.8 H Plt Count 199 Seg Neutrophils % 76.8 Lymphocytes % 20.6 Monocytes % 2.1 L Eosinophils % 0.0 Basophils % 0.5 Absolute Neutrophils 4.7 Absolute Lymphocytes 1.3 Absolute Monocytes 0.1 Absolute Eosinophils 0.0 Absolute Basophils 0.0 VBG pH 7.43 H VBG pCO2 32.7 L VBG HCO3 21.0 VBG Base Excess -2.5 Sodium 139.6 Potassium 4.5 Chloride 107 Carbon Dioxide 19 L Anion Gap 14 BUN 24 H Creatinine 1.16 Est GFR ( Amer) > 60 Est GFR (Non-Af Amer) > 60 Glucose 136 H Calcium 8.8 Total Bilirubin 1.8 H AST 51 ALT 112 H Alkaline Phosphatase 134 H Total Protein 6.6 Albumin 3.5 Urine Color Urine Appearance Urine pH Ur Specific [place] Urine Protein Urine Glucose (UA) Urine Ketones Urine Blood Urine Nitrite Ur Leukocyte Esterase Urine RBC (Auto) 10/05/16 10/06/16 10/06/16 21:12 02:03 02:03 Creatine Kinase 87 CK-MB (CK-2) 0.90 0.70 Troponin I 0.015 0.017 10/06/16 10/06/16 08:28 08:28 Creatine Kinase 77 CK-MB (CK-2) 0.72 Troponin I < 0.012 Impressions: Chest X-Ray 10/05/16 16:20 IMPRESSION: Stable cardiomegaly. No pulmonary vascular congestion or focal infiltrate. Assessment & Plan - Diagnosis (1) Acute hypoxemic respiratory failure Is this a current diagnosis for this admission?: Yes (2) COPD exacerbation Is this a current diagnosis for this admission?: Yes (3) Chronic systolic heart failure Is this a current diagnosis for this admission?: Yes (4) Dilated cardiomyopathy Is this a current diagnosis for this admission?: Yes (5) Chronic passive congestion of liver Is this a current diagnosis for this admission?: Yes (6) Essential hypertension Is this a current diagnosis for this admission?: Yes (7) CAD (coronary artery disease) Qualifiers: Coronary Disease-Associated Artery/Lesion type: [place] artery [place] vs. transplanted heart: [place] heart Associated angina: without angina Qualified Code(s): I25.10 - Atherosclerotic heart disease of [place] coronary artery without angina pectoris Is this a current diagnosis for this admission?: Yes (8) Substance abuse Is this a current diagnosis for this admission?: Yes - Time Time Spent with patient: 25-34 minutes - Plan Summary Plan Summary: Continue diuretics, steroids, and bronchodilators. Consult cardiology. Awaiting echocardiogram. Continue other medications and supportive care. No signs of withdrawal at this time. Continue supplements.
--- NOTE | 2016-10-06 12:02 | PDOC CONSULTATION ---
Consultation Consult Date: 10/06/16 Attending physician:: DIANE ACOSTA Consult reason:: Congestive heart failure History of Present Illness Admission Date/PCP: 10/05/16 18:39 SAMIR ESCALONA MD Patient complains of: Shortness of breath History of Present Illness: ADAIR MARTINES is a 55 year old male, with history of coronary artery disease, dilated cardiomyopathy, chronic congestive heart failure systolic dysfunction with ejection fraction of 15% has been dealing with increasing shortness of breath for several days. He has chronic shortness of breath on exertion due to his heart condition. He denies having any paroxysmal nocturnal dyspnea or orthopnea. Patient has had a productive cough, fevers, and shortness of breath for 3 days. Patient states he also recently quit smoking approximately 1 week ago. Patient was tachypneic and hypoxic in triage with a pulse ox of 80% on room air. There is no sinus congestion or sore throat. Cough is productive of yellowish phlegm. He started to develop wheezing. He is a chronic smoker, never been diagnosed with COPD that he is aware of, he stop smoking about a week ago. His symptoms persisted therefore presents to the hospital for evaluation. Chest x-ray report did not reveal any acute infiltrate but cardiomegaly. Patient was given steroids and nebulizers and was subsequently admission. Denies any chest pain , nausea vomiting, or diaphoresis. Patient denies any sustained palpitations, syncope, near syncope. Patient normally follows with me in the office but claims that she has missed some appointments. This history was reviewed, supplemented and confirmed. Past Medical History Cardiac Medical History: Reports: Congestive Heart Failure, Coronary Artery Disease, Hyperlipidema, Hypertension Pulmonary Medical History: Reports: Bronchitis, Chronic Obstructive Pulmonary Disease (COPD) Denies: Tuberculosis Psychiatric Medical History: Denies: Depression Past Surgical History Past Surgical History: Reports: Cardiac Catheterization - x3, Coronary Stent Social History Information Source: Patient Smoking Status: Former Smoker Cigarettes Packs Per Day: 1 Frequency of Alcohol Use: Rare Hx Recreational Drug Use: Yes Drugs: None, Marijuana Hx Prescription Drug Abuse: No - Advance Directive Resuscitation Status: Full Code Family History Family History: CAD, Hypertension Parental Family History Reviewed: Yes Children Family History Reviewed: Yes Sibling(s) Family History Reviewed.: Yes Medication/Allergy Home Medications: Digoxin [Lanoxin 0.125 mg Tablet] 0.125 mg PO DAILY #30 tablet 11/16/13 Furosemide [Lasix 20 mg Tablet] 20 mg PO BID #60 tablet 11/16/13 Atorvastatin Calcium 40 mg PO DAILY 10/05/16 Albuterol Sulfate [Ventolin Hfa] 1 puff PO Q4HP PRN 10/06/16 Carvedilol [Coreg 12.5 mg Tablet] 12.5 mg PO Q12 #60 tablet 10/08/16 Lisinopril [Prinivil 5 mg Tablet] 5 mg PO DAILY #30 tablet 10/08/16 Prednisone [Deltasone 20 mg Tablet] 10 mg PO DAILY #39 tablet 10/08/16 Allergies/Adverse Reactions: No Known Allergies Allergy (Verified 10/05/16 16:15) Review of Systems Review of Systems: Please see history of present illness and past medical history as wall. Constitutional: No fever or chills reported. Head : No recent chronic headaches, recent head injury. Eyes: No recent eye pain, diplopia, redness, discharge, acute visual changes. Ears: No recent chronic ear pain, acute hearing loss, ear discharge. Oral cavity: No recent ulcerations, bleeding, oral cavity discomfort. Neck: No recent acute neck pain reported. Hematologic: No recent easy bruising or bleeding or hematologic malignancy reported. Lymphatic: No recent lymphatic malignancy, chronic lymphadenopathy reported yet Cardiovascular system review: See history of present illness. Respiratory system review: Recent cough with yellow sputum production but denies hemoptysis, blood clots in the lungs reported. Mild Shortness of breath on exertion Gastrointestinal system review: Negative for any recent acute or chronic abdominal pain, hematemesis, melena, recent change in bowel habits. Genitourinary system review: No recent acute or chronic hematuria, flank pain, UTI etc. reported. Skin system review: Negative for any recent abnormal bruising, no rash, no pruritus reported. Neurologic: No prior history of strokes, mini strokes, seizure disorder. Psychologic: No history of major psychosis or major depression reported. Musculoskeletal: Minor aches and pains reported. No acute joint swelling reported. Endocrine: No recent polyuria, polydipsia, recent heat or cold intolerance. Physical Exam Vital Signs: Temp Pulse Resp BP Pulse Ox 98.4 F 91 18 116/86 H 100 10/06/16 07:11 10/06/16 07:11 10/06/16 07:11 10/06/16 07:11 10/06/16 07:11 Intake & Output 10/05/16 10/06/16 10/07/16 06:59 06:59 06:59 Intake Total 40 Balance 40 Weight 69.3 kg Exam: GENERAL: well-nourished and in no acute distress. Alert and oriented x3 HEAD: Atraumatic, normocephalic. EYES: Pupils equal round and reactive to light, extraocular movements intact, sclera anicteric, conjunctiva are normal. ENT: TMs normal, nares patent, oropharynx clear without exudates. Moist mucous membranes. No oral ulcerations or bleeding gums noted NECK: supple without lymphadenopathy. Trachea is central. No cervical or axillary lymphadenopathy noted. Carotids are 2+, JVD 10 cm LUNGS: Respiration seems nonlabored, no significant accessory muscle action noted. Breath sounds clear to auscultation bilaterally and equal noted. No wheezes rales or rhonchi noted. No significant dullness noted on percussion. CHEST: Palpation of the chest wall shows no significant chest wall tenderness. No other significant abnormalities noted. 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 ABDOMEN: Soft, no significant tenderness appreciated, normoactive bowel sounds. No guarding, no rebound. No rigidity noted . No masses appreciated. EXTREMITIES: Pedal pulses are 1-2+, no calf tenderness noted. No clubbing or cyanosis.trace to 1+ pedal edema noted NEUROLOGICAL: Focused neurological exam showed no significant neurologic deficit. Normal speech, no focal weakness appreciated. PSYCH: Normal mood, normal affect. Judgment and insight within normal limits. SKIN: No significant ecchymosis, rash, ulcerations or signs of pruritus noted. MUSCULOSKELETAL EXAM: No significant joint swelling noted. Results Laboratory Results: 10/06/16 08:28 10/06/16 08:28 10/05/16 10/05/16 10/05/16 20:10 21:12 23:10 WBC RBC Hgb Hct MCV MCH MCHC RDW Plt Count Seg Neutrophils % Lymphocytes % Monocytes % Eosinophils % Basophils % Absolute Neutrophils Absolute Lymphocytes Absolute Monocytes Absolute Eosinophils Absolute Basophils VBG pH 7.29 L 7.42 VBG pCO2 50.8 29.8 L VBG HCO3 23.7 18.9 L VBG Base Excess -3.5 -4.2 Sodium Potassium Chloride Carbon Dioxide Anion Gap BUN Creatinine Est GFR ( Amer) Est GFR (Non-Af Amer) Glucose Calcium Total Bilirubin AST ALT Alkaline Phosphatase Total Protein Albumin Urine Color STRAW Urine Appearance CLEAR Urine pH 5.0 Ur Specific [place] 1.004 Urine Protein 30 H Urine Glucose (UA) NEGATIVE Urine Ketones NEGATIVE Urine Blood MODERATE H Urine Nitrite NEGATIVE Ur Leukocyte Esterase NEGATIVE Urine RBC (Auto) 0 10/06/16 10/06/16 10/06/16 02:03 08:28 08:28 WBC 6.1 RBC 4.91 Hgb 13.8 Hct 44.1 MCV 90 MCH 28.2 MCHC 31.3 L RDW 18.8 H Plt Count 199 Seg Neutrophils % 76.8 Lymphocytes % 20.6 Monocytes % 2.1 L Eosinophils % 0.0 Basophils % 0.5 Absolute Neutrophils 4.7 Absolute Lymphocytes 1.3 Absolute Monocytes 0.1 Absolute Eosinophils 0.0 Absolute Basophils 0.0 VBG pH 7.43 H VBG pCO2 32.7 L VBG HCO3 21.0 VBG Base Excess -2.5 Sodium 139.6 Potassium 4.5 Chloride 107 Carbon Dioxide 19 L Anion Gap 14 BUN 24 H Creatinine 1.16 Est GFR ( Amer) > 60 Est GFR (Non-Af Amer) > 60 Glucose 136 H Calcium 8.8 Total Bilirubin 1.8 H AST 51 ALT 112 H Alkaline Phosphatase 134 H Total Protein 6.6 Albumin 3.5 Urine Color Urine Appearance Urine pH Ur Specific [place] Urine Protein Urine Glucose (UA) Urine Ketones Urine Blood Urine Nitrite Ur Leukocyte Esterase Urine RBC (Auto) 10/05/16 10/06/16 10/06/16 21:12 02:03 02:03 Creatine Kinase 87 CK-MB (CK-2) 0.90 0.70 Troponin I 0.015 0.017 10/06/16 10/06/16 08:28 08:28 Creatine Kinase 77 CK-MB (CK-2) 0.72 Troponin I < 0.012 EKG Comments: Twelve-lead EKG shows abnormal Q waves inferiorly, lateral chest leads and lead I and aVL consistent with inferior and lateral infarct. Impressions: Chest X-Ray 10/05/16 16:20 IMPRESSION: Stable cardiomegaly. No pulmonary vascular congestion or focal infiltrate. Status: Image reviewed by ia - Chest x-ray reviewed. Shows presence of defibrillator, single-chamber, possible infiltrate left lingular lobe. This is my review. Assessment & Plan - Diagnosis (1) Congestive heart failure Qualifiers: Congestive heart failure type: combined Congestive heart failure chronicity: acute on chronic Qualified Code(s): I50.43 - Acute on chronic combined systolic (congestive) and diastolic (congestive) heart failure Is this a current diagnosis for this admission?: Yes (2) Dilated cardiomyopathy Is this a current diagnosis for this admission?: Yes (3) Essential hypertension Is this a current diagnosis for this admission?: Yes (4) CAD (coronary artery disease) Qualifiers: Coronary Disease-Associated Artery/Lesion type: [place] artery [place] vs. transplanted heart: [place] heart Associated angina: without angina Qualified Code(s): I25.10 - Atherosclerotic heart disease of [place] coronary artery without angina pectoris Is this a current diagnosis for this admission?: Yes (5) COPD exacerbation Is this a current diagnosis for this admission?: Yes (6) Chronic passive congestion of liver Is this a current diagnosis for this admission?: Yes - Notes Notes: intelligence director, this was reviewed. Twelve-lead EKG, these were reviewed. Chest x-ray: Results reviewed. Medications: These were reviewed. Labs: These were reviewed. Previous hospitalization records were reviewed. Office visit records were reviewed. Treatment/care plan: This was reviewed and discussed with involved personnel in the care of this patient and patient. Orders: 2D echocardiogram, follow-up labs. Congestive heart failure: Acute on chronic systolic and diastolic, predominantly systolic. Patient last seen in the office in November 2015 and has missed appointments. 2D echo more than a year old. Will order a 2D echo. Patient had mitral regurgitation on prior echocardiogram. Cardiomyopathy: Dilated cardio myopathy with EKG showing previous myocardial infarction. Medical regimen will be optimized. Hypertension: Reasonably well controlled. Blood pressure goal in this patient is 135/85 or less. This was discussed with the patient. Currently blood pressure under reasonable control. Better medication for this patient are GUY inhibitor/ARB/beta terrie etc. discussed side effects of uncontrolled hypertension and also severe hypotension. CAD: Patient has CAD. Currently stable without any angina or angina equivalent symptoms. Discussed symptoms associated with unstable angina, acute coronary syndrome, myocardial infarction etc. patient to be educated in proper instruction for nitroglycerin use and proper use of emergency services. Aggressive risk factor modification advised. COPD patient encouraged to avoid first-hand and secondhand smoking. Patient also advised to avoid environmental pollutants. Patient to use bronchodilator and steroid therapy as has been prescribed by PMD and other specialists. Currently being treated with COPD exacerbation adequately. Passive congestion of the liver: This is being inferred based on abnormal liver function test. Recommend follow-up LFTs. - Time Time Spent: 30 to 50 Minutes - CODE STATUS was discussed, patient remains full code. Surrogate decision-maker unchanged. Multiple medical problems were addressed. More than 50% of the time spent coordinating care, discussing management plans with involved caregivers. Management plans discussed with involved personnels. Medical decision making was of moderate to high complexity , patient's has multiple comorbidities. Medications reviewed and adjusted accordingly: Yes
--- NOTE | 2016-10-06 13:10 | EKG REPORT ---
SEVERITY:- ABNORMAL ECG - SINUS RHYTHM INFERIOR INFARCT, AGE INDETERMINATE LATERAL INFARCT, AGE INDETERMINATE CONSIDER ANTERIOR INFARCT : Confirmed by: Nayely Rodriguez MD 06-Oct-2016 13:09:45
[2016-10-06] MEDS: INSULIN LISPRO 100 UNIT/ML 3 ML VIAL SUBCUT PRN (22:01)
[2016-10-07] MEDS: IPRATROPIUM BROMIDE 0.02% NEB 0.5 MG/2.5 ML AMPUL NEB SCH ×4 (02:38→19:49)
[2016-10-07] MEDS: LANSOPRAZOLE 30 MG TAB.RAP.DR PO SCH (05:43)
[2016-10-07] MEDS: FUROSEMIDE INJ/PF 40 MG/4 ML SDV IV SCH (05:43)
[2016-10-07] MEDS: METHYLPREDNISOLONE INJ 125 MG/2 ML SDV IV SCH ×2 (05:43→13:23)
[2016-10-07 07:41] LABS: BLOOD UREA NITROGEN 35 mg/dL (7-20); CREATININE RESULT 1.28 mg/dL (0.52-1.25); GLUCOSE 134 mg/dL (75-110)
[2016-10-07 07:42] LABS: ANION GAP 13 (5-19); CARBON DIOXIDE 26 mmol/L (22-30); CHLORIDE 99 mmol/L (98-107); POTASSIUM 4.9 mmol/L (3.6-5.0); SODIUM 138.4 mmol/L (137-145)
[2016-10-07] MEDS ORDERED: ONDANSETRON HCL INJ/PF 4 MG/2 ML SDV IV PRN (08:37)
[2016-10-07] MEDS: DIGOXIN 0.125 MG TABLET PO SCH (10:03)
[2016-10-07] MEDS: ENOXAPARIN SODIUM INJ 40 MG/0.4 ML DISP.SYRIN SUBCUT SCH (10:03)
[2016-10-07] MEDS: DOCUSATE SODIUM 100 MG CAPSULE PO SCH ×2 (10:03→17:27)
[2016-10-07] MEDS: THIAMINE HCL 100 MG TABLET PO SCH (10:04)
[2016-10-07] MEDS: CARVEDILOL 12.5 MG TABLET PO SCH ×2 (10:04→21:13)
[2016-10-07] MEDS: LISINOPRIL 5 MG TABLET PO SCH (10:04)
[2016-10-07] MEDS: FOLIC ACID 1 MG TABLET PO SCH (10:05)
[2016-10-07] MEDS: MULTIVITAMIN TABLET PO SCH (10:05)
--- NOTE | 2016-10-07 15:35 | PDOC PROGRESS REPORT ---
Subjective Progress Note for:: 10/07/16 Subjective:: Patient continues to feel better. Shortness of breath is much better. Wheezing has resolved. Denies any nausea vomiting, chest pain, diaphoresis. Able to ambulate around. No reported agitation, confusion, nor tremors nor any sx of withdrawal. Physical Exam Vital Signs: Temp Pulse Resp BP Pulse Ox 97.4 F 68 20 104/74 98 10/07/16 12:48 10/07/16 14:00 10/07/16 13:55 10/07/16 12:48 10/07/16 13:55 Intake & Output 10/06/16 10/07/16 10/08/16 06:59 06:59 06:59 Intake Total 40 2238 540 Output Total 525 Balance 40 1713 540 Weight 69.3 kg 68.1 kg General appearance: PRESENT: no acute distress, cooperative Head exam: PRESENT: normocephalic Eye exam: PRESENT: EOMI Mouth exam: PRESENT: moist, neck supple Neck exam: ABSENT: JVD Respiratory exam: PRESENT: rhonchi - Occasional bilateral. ABSENT: wheezes Cardiovascular exam: PRESENT: RRR, +S1, +S2, systolic murmur - Left sternal border. ABSENT: gallop GI/Abdominal exam: PRESENT: normal bowel sounds, soft. ABSENT: distended Extremities exam: ABSENT: pedal edema Neurological exam: PRESENT: alert, awake, oriented to person, oriented to place , oriented to time, oriented to situation Skin exam: PRESENT: dry, warm. ABSENT: cyanosis Results Laboratory Results: 10/06/16 08:28 10/07/16 06:30 10/07/16 06:30 Sodium 138.4 Potassium 4.9 Chloride 99 Carbon Dioxide 26 Anion Gap 13 BUN 35 H Creatinine 1.28 H Est GFR ( Amer) > 60 Est GFR (Non-Af Amer) 58 L Glucose 134 H Calcium 9.0 10/05/16 10/06/16 10/06/16 21:12 02:03 02:03 Creatine Kinase 87 CK-MB (CK-2) 0.90 0.70 Troponin I 0.015 0.017 10/06/16 10/06/16 08:28 08:28 Creatine Kinase 77 CK-MB (CK-2) 0.72 Troponin I < 0.012 Impressions: Chest X-Ray 10/05/16 16:20 IMPRESSION: Stable cardiomegaly. No pulmonary vascular congestion or focal infiltrate. Assessment & Plan - Diagnosis (1) Acute hypoxemic respiratory failure Is this a current diagnosis for this admission?: Yes (2) COPD exacerbation Is this a current diagnosis for this admission?: Yes (3) Chronic systolic heart failure Is this a current diagnosis for this admission?: Yes (4) Dilated cardiomyopathy Is this a current diagnosis for this admission?: Yes (5) Chronic passive congestion of liver Is this a current diagnosis for this admission?: Yes (6) Essential hypertension Is this a current diagnosis for this admission?: Yes (7) CAD (coronary artery disease) Qualifiers: Coronary Disease-Associated Artery/Lesion type: [place] artery [place] vs. transplanted heart: [place] heart Associated angina: without angina Qualified Code(s): I25.10 - Atherosclerotic heart disease of [place] coronary artery without angina pectoris Is this a current diagnosis for this admission?: Yes (8) Substance abuse Is this a current diagnosis for this admission?: Yes - Time Time Spent with patient: 25-34 minutes - Plan Summary Plan Summary: We are going to discontinue intravenous Lasix and Solu-Medrol and begin oral Lasix and prednisone. Increase activity. Awaiting echocardiogram. Possible discharge in the morning when cleared by cardiology service.
[2016-10-07] MEDS: FUROSEMIDE 40 MG TABLET PO SCH (17:27)
--- NOTE | 2016-10-07 19:41 | XCELERA REPORT ---
[address] [id number] Transthoracic Echocardiogram Report Name: ADAIR MARTINES Age: 55 yrs Gender: Male : 1960 Patient Status: Inpatient Patient Location: [id number]\324\[id number]\A Study Date: 10/07/2016 09:20 AM Height: 70 in Weight: 163 lb BSA: 1.9 m2 Procedure: A complete two-dimensional transthoracic echocardiogram was performed (2D, M-mode, spectral and color flow Doppler). The study was technically adequate with some images being suboptimal in quality. Reason For Study: chf Ordering Physician: DIANE ACOSTA Performed By: Erika Duke Interpretation Summary LV EF is 30% Left ventricular systolic function is severely reduced. There is distal anterior wall akinesis There is apical wall akinesis The left ventricle is moderately dilated. There is mild concentric left ventricular hypertrophy. LV diastolic function could not be adequately assessed. The right ventricular systolic function is mildly reduced. The left atrium is mildly dilated. The right atrium is mildly dilated. There is a moderate amount of mitral regurgitation There is no mitral valve stenosis. No aortic regurgitation is present. There is no aortic valve stenosis There is a moderate amount of tricuspid regurgitation There is moderate pulmonary hypertension by echo Right ventricular systolic pressure is estimated to be elevated at 50- 60mmHg. There is no pericardial effusion. The inferior vena cava appeared normal and decreased < 50% with respiration (RAP 10-15 mmHg) MMode/2D Measurements \T\ Calculations RVDd: 2.6 cm LVIDd: 6.3 cm FS: 14.6 % EPSS: 1.9 cm IVSd: 1.1 cm LVIDs: 5.4 cm EDV(Teich): 201.8 ml LVPWd: 1.1 cm ESV(Teich): 140.4 ml EF(Teich): 30.4 % Ao root diam: 3.2 cm LVOT diam: 2.0 cm Ao root area: 8.1 cm2 LVOT area: 3.2 cm2 LA dimension: 4.0 cm Doppler Measurements \T\ Calculations MV E max boyd: MV P1/2t max boyd: Ao V2 max: LV V1 max P.7 cm/sec 98.7 cm/sec 106.2 cm/sec 1.4 mmHg MV A max boyd: MV P1/2t: 42.7 msec Ao max PG: LV V1 max: 29.1 cm/sec MVA(P1/2t): 5.1 cm2 4.5 mmHg 58.1 cm/sec MV E/A: 3.4 MV dec slope: DEDE(V,D): 1.8 cm2 LV dP/dt: 676.7 cm/sec2 649.0 mmHg/s PA V2 max: TR max boyd: 63.4 cm/sec 366.5 cm/sec PA max PG: TR max P.7 mmHg 1.6 mmHg Left Ventricle The left ventricle is moderately dilated. There is mild concentric left ventricular hypertrophy. Left ventricular systolic function is severely reduced. LV EF is 30%. LV diastolic function could not be adequately assessed. There is apical wall akinesis. There is distal anterior wall akinesis. Right Ventricle The right ventricle is grossly normal size. There is normal right ventricular wall thickness. The right ventricular systolic function is mildly reduced. Atria The right atrium is mildly dilated. The left atrium is mildly dilated. Interarterial septum not well visualized and not well dopplered. Cannot comment on ASD/PFO presence. Mitral Valve The mitral valve is grossly normal. There is no mitral valve stenosis. There is a moderate amount of mitral regurgitation. Aortic Valve The aortic valve is grossly normal. There is no aortic valve stenosis. No aortic regurgitation is present. Tricuspid Valve The tricuspid valve is not well visualized secondary to technical limitations. There is no tricuspid stenosis. There is a moderate amount of tricuspid regurgitation. There is moderate pulmonary hypertension by echo. Right ventricular systolic pressure is estimated to be elevated at 50- 60mmHg. Pulmonic Valve The pulmonic valve is not well visualized. Great Vessels The aortic root is not well visualized but is probably normal size. The inferior vena cava appeared normal and decreased < 50% with respiration (RAP 10-15 mmHg). Effusions There is no pericardial effusion. : DIANE ACOSTA Shyamal
[2016-10-07] MEDS: INSULIN LISPRO 100 UNIT/ML 3 ML VIAL SUBCUT PRN (22:30)
[2016-10-08] MEDS: IPRATROPIUM BROMIDE 0.02% NEB 0.5 MG/2.5 ML AMPUL NEB SCH ×2 (02:11→08:39)
[2016-10-08] MEDS: LANSOPRAZOLE 30 MG TAB.RAP.DR PO SCH (05:06)
[2016-10-08 06:19] LABS: ANION GAP 9 (5-19); BLOOD UREA NITROGEN 36 mg/dL (7-20); CALCIUM 8.4 mg/dL (8.4-10.2); CARBON DIOXIDE 27 mmol/L (22-30); CHLORIDE 101 mmol/L (98-107); CREATININE RESULT 1.09 mg/dL (0.52-1.25); GLUCOSE 173 mg/dL (75-110); POTASSIUM 4.2 mmol/L (3.6-5.0)
[2016-10-08 07:48] VITALS: BP 98/67
[2016-10-08] MEDS: INSULIN LISPRO 100 UNIT/ML 3 ML VIAL SUBCUT PRN (08:34)
[2016-10-08] MEDS ORDERED: PREDNISONE 20 MG TABLET PO SCH (10:00)
[2016-10-08] MEDS: ENOXAPARIN SODIUM INJ 40 MG/0.4 ML DISP.SYRIN SUBCUT SCH (10:27)
[2016-10-08] MEDS: DIGOXIN 0.125 MG TABLET PO SCH (10:28)
[2016-10-08] MEDS: FUROSEMIDE 40 MG TABLET PO SCH (10:29)
[2016-10-08] MEDS: LISINOPRIL 5 MG TABLET PO SCH (10:29)
[2016-10-08] MEDS: DOCUSATE SODIUM 100 MG CAPSULE PO SCH (10:29)
[2016-10-08] MEDS: MULTIVITAMIN TABLET PO SCH (10:29)
[2016-10-08] MEDS: CARVEDILOL 12.5 MG TABLET PO SCH (10:30)
[2016-10-08] MEDS: FOLIC ACID 1 MG TABLET PO SCH (10:30)
[2016-10-08] MEDS: THIAMINE HCL 100 MG TABLET PO SCH (10:30)
--- NOTE | 2016-10-08 11:00 | PDOC PROGRESS REPORT ---
Subjective Progress Note for:: 10/07/16 Subjective:: Patient seems to be doing better with gradual improvement. Pt is denying any chest arm or neck discomfort. Patient denying any PND, orthopnea. Patient denied any sustained palpitations, dizziness, syncope, near syncope. Patient denying any fever chills. Patient denying any other significant discomfort. Patient is maintaining sinus rhythm. 2D echo results were reviewed with the patient. Review of systems: Rest review of systems negative. Medications: Medications have been reviewed. Physical Exam Vital Signs: Temp Pulse Resp BP Pulse Ox 97.4 F 68 20 104/74 98 10/07/16 12:48 10/07/16 14:00 10/07/16 13:55 10/07/16 12:48 10/07/16 13:55 Intake & Output 10/06/16 10/07/16 10/08/16 06:59 06:59 06:59 Intake Total 40 2238 1142 Output Total 525 Balance 40 1713 1142 Weight 69.3 kg 68.1 kg Exam: GENERAL: well-nourished and in no acute distress. Alert and oriented x3 HEAD: Atraumatic, normocephalic. EYES: Pupils equal round and reactive to light, extraocular movements intact, sclera anicteric, conjunctiva are normal. ENT: TMs normal, nares patent, oropharynx clear without exudates. Moist mucous membranes. No oral ulcerations or bleeding gums noted NECK: supple without lymphadenopathy. Trachea is central. No cervical or axillary lymphadenopathy noted. Carotids are 2+, JVD WNL LUNGS: Respiration seems nonlabored, no significant accessory muscle action noted. Breath sounds clear to auscultation bilaterally and equal noted. No wheezes rales or rhonchi noted. No significant dullness noted on percussion. CHEST: Palpation of the chest wall shows no significant chest wall tenderness. No other significant abnormalities noted. HEART: [place] [employer]OOK, No PSH, 1/6 DELANEY aortic area, 1/6 garcia systolic murmur mitral area, no rubs, no gallops. ABDOMEN: Soft, no significant tenderness appreciated, normoactive bowel sounds. No guarding, no rebound. No rigidity noted . No masses appreciated. EXTREMITIES: Pedal pulses are 1-2+, no calf tenderness noted. No clubbing or cyanosis.trace to 1+ pedal edema noted NEUROLOGICAL: Focused neurological exam showed no significant neurologic deficit. Normal speech, no focal weakness appreciated. PSYCH: Normal mood, normal affect. Judgment and insight within normal limits. SKIN: No significant ecchymosis, rash, ulcerations or signs of pruritus noted. MUSCULOSKELETAL EXAM: No significant joint swelling noted. Results Laboratory Results: 10/06/16 08:28 10/07/16 06:30 10/07/16 06:30 Sodium 138.4 Potassium 4.9 Chloride 99 Carbon Dioxide 26 Anion Gap 13 BUN 35 H Creatinine 1.28 H Est GFR ( Amer) > 60 Est GFR (Non-Af Amer) 58 L Glucose 134 H Calcium 9.0 10/05/16 10/06/16 10/06/16 21:12 02:03 02:03 Creatine Kinase 87 CK-MB (CK-2) 0.90 0.70 Troponin I 0.015 0.017 10/06/16 10/06/16 08:28 08:28 Creatine Kinase 77 CK-MB (CK-2) 0.72 Troponin I < 0.012 Impressions: Chest X-Ray 10/05/16 16:20 IMPRESSION: Stable cardiomegaly. No pulmonary vascular congestion or focal infiltrate. Assessment & Plan - Diagnosis (1) Congestive heart failure Qualifiers: Congestive heart failure type: combined Congestive heart failure chronicity: acute on chronic Qualified Code(s): I50.43 - Acute on chronic combined systolic (congestive) and diastolic (congestive) heart failure Is this a current diagnosis for this admission?: Yes (2) Dilated cardiomyopathy Is this a current diagnosis for this admission?: Yes (3) Essential hypertension Is this a current diagnosis for this admission?: Yes (4) CAD (coronary artery disease) Qualifiers: Coronary Disease-Associated Artery/Lesion type: [place] artery [place] vs. transplanted heart: [place] heart Associated angina: without angina Qualified Code(s): I25.10 - Atherosclerotic heart disease of [place] coronary artery without angina pectoris Is this a current diagnosis for this admission?: Yes (5) COPD exacerbation Is this a current diagnosis for this admission?: Yes (6) Chronic passive congestion of liver Is this a current diagnosis for this admission?: Yes - Notes Notes: 2D echo results reviewed with the patient. It showed depressed LVEF with moderate mitral regurgitation and also moderate pulmonary hypertension. classroom monitor, this was reviewed. Twelve-lead EKG, these were reviewed. Chest x-ray: Results reviewed. Medications: These were reviewed. Patient noted to be on a stable regimen but will be optimized. Labs: These were reviewed. Previous hospitalization records were reviewed. Office visit records were reviewed. Treatment/care plan: This was reviewed and discussed with involved personnel in the care of this patient and patient. Congestive heart failure: Acute on chronic systolic and diastolic, predominantly systolic. Patient last seen in the office in November 2015 and has missed appointments. This seems compensated on clinical exam. Continue baseline diuretic therapy. Patient was educated in CHF pathway. This should include salt and fluid restriction, daily weighing, adjustment of diuretic therapy based on weight gain et cetera. Patient to be educated that if there is gain of more than 2 pounds in a day or more than 5 pounds in a week, this indicates fluid retention and patient may need to adjust the diuretic therapy. Symptoms associated with CHF exacerbation to be discussed with the patient. This could include rapid weight gain, abdominal bloating, increased shortness of breath, fatigue, tiredness, cardiac arrhythmias et cetera. Cardiomyopathy: Dilated cardio myopathy with EKG showing previous myocardial infarction. Medical regimen will be optimized. Hypertension: Reasonably well controlled. Blood pressure goal in this patient is 135/85 or less. This was discussed with the patient. Currently blood pressure under reasonable control. Better medication for this patient are GUY inhibitor/ARB/beta terrie etc. discussed side effects of uncontrolled hypertension and also severe hypotension. CAD: Patient has CAD. Currently stable without any angina or angina equivalent symptoms. Discussed symptoms associated with unstable angina, acute coronary syndrome, myocardial infarction etc. patient to be educated in proper instruction for nitroglycerin use and proper use of emergency services. Aggressive risk factor modification advised. COPD patient encouraged to avoid first-hand and secondhand smoking. Patient also advised to avoid environmental pollutants. Patient to use bronchodilator and steroid therapy as has been prescribed by PMD and other specialists. Currently being treated with COPD exacerbation adequately. Consider tapering his steroids. Passive congestion of the liver: This is being inferred based on abnormal liver function test. Recommend follow-up LFTs. - Time Time with patient: Greater than 35 minutes - CODE STATUS was discussed, patient remains full code. Surrogate decision-maker unchanged. Multiple medical problems were addressed. More than 50% of the time spent coordinating care, discussing management plans with involved caregivers. Management plans discussed with involved personnels. Medical decision making was of high complexity, patient's has multiple comorbidities. 2D echo results were discussed. Medications reviewed and adjusted accordingly: Yes
--- NOTE | 2016-10-08 11:04 | PDOC PROGRESS REPORT ---
Subjective Progress Note for:: 10/08/16 Subjective:: Patient seems to be doing better with significant improvement. Pt is denying any chest arm or neck discomfort. Patient denying any PND, orthopnea. Patient denied any sustained palpitations, dizziness, syncope, near syncope. Patient denying any fever chills. Patient denying any other significant discomfort. Patient is maintaining sinus rhythm. 2D echo results were again reviewed with the patient. Patient advised in compliance with dietary restriction and medication as well as physician appointments. Review of systems: Rest review of systems negative. Medications: Medications have been reviewed. Physical Exam Vital Signs: Temp Pulse Resp BP Pulse Ox 97.9 F 79 16 98/67 L 99 10/08/16 07:17 10/08/16 08:39 10/08/16 08:39 10/08/16 07:10/08/16 08:39 Intake & Output 10/07/16 10/08/16 10/09/16 06:59 06:59 06:59 Intake Total 2238 2021 Output Total 525 Balance 1713 2021 Weight 68.1 kg 69.7 kg Exam: GENERAL: well-nourished and in no acute distress. Alert and oriented x3 HEAD: Atraumatic, normocephalic. EYES: Pupils equal round and reactive to light, extraocular movements intact, sclera anicteric, conjunctiva are normal. ENT: TMs normal, nares patent, oropharynx clear without exudates. Moist mucous membranes. No oral ulcerations or bleeding gums noted NECK: supple without lymphadenopathy. Trachea is central. No cervical or axillary lymphadenopathy noted. Carotids are 2+, JVD WNL LUNGS: Respiration seems nonlabored, no significant accessory muscle action noted. Breath sounds clear to auscultation bilaterally and equal noted. No wheezes rales or rhonchi noted. No significant dullness noted on percussion. CHEST: Palpation of the chest wall shows no significant chest wall tenderness. No other significant abnormalities noted. Defibrillator noted on the left side. This is a single-chamber defibrillator. 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 ABDOMEN: Soft, no significant tenderness appreciated, normoactive bowel sounds. No guarding, no rebound. No rigidity noted . No masses appreciated. EXTREMITIES: Pedal pulses are 1-2+, no calf tenderness noted. No clubbing or cyanosis.trace to 1+ pedal edema noted NEUROLOGICAL: Focused neurological exam showed no significant neurologic deficit. Normal speech, no focal weakness appreciated. PSYCH: Normal mood, normal affect. Judgment and insight within normal limits. SKIN: No significant ecchymosis, rash, ulcerations or signs of pruritus noted. MUSCULOSKELETAL EXAM: No significant joint swelling noted. Results Laboratory Results: 10/06/16 08:28 10/08/16 05:03 10/08/16 05:03 Sodium 137.0 Potassium 4.2 Chloride 101 Carbon Dioxide 27 Anion Gap 9 BUN 36 H Creatinine 1.09 Est GFR ( Amer) > 60 Est GFR (Non-Af Amer) > 60 Glucose 173 H Calcium 8.4 10/05/16 10/06/16 10/06/16 21:12 02:03 02:03 Creatine Kinase 87 CK-MB (CK-2) 0.90 0.70 Troponin I 0.015 0.017 10/06/16 10/06/16 08:28 08:28 Creatine Kinase 77 CK-MB (CK-2) 0.72 Troponin I < 0.012 Impressions: Chest X-Ray 10/05/16 16:20 IMPRESSION: Stable cardiomegaly. No pulmonary vascular congestion or focal infiltrate. Assessment & Plan - Diagnosis (1) Congestive heart failure Qualifiers: Congestive heart failure type: combined Congestive heart failure chronicity: acute on chronic Qualified Code(s): I50.43 - Acute on chronic combined systolic (congestive) and diastolic (congestive) heart failure Is this a current diagnosis for this admission?: Yes (2) Dilated cardiomyopathy Is this a current diagnosis for this admission?: Yes (3) Essential hypertension Is this a current diagnosis for this admission?: Yes (4) CAD (coronary artery disease) Qualifiers: Coronary Disease-Associated Artery/Lesion type: [place] artery [place] vs. transplanted heart: [place] heart Associated angina: without angina Qualified Code(s): I25.10 - Atherosclerotic heart disease of [place] coronary artery without angina pectoris Is this a current diagnosis for this admission?: Yes (5) COPD exacerbation Is this a current diagnosis for this admission?: Yes (6) Chronic passive congestion of liver Is this a current diagnosis for this admission?: Yes (7) Mitral regurgitation Qualifiers: Cardiac valve disease etiology: nonrheumatic Qualified Code(s): I34.0 - Nonrheumatic mitral (valve) insufficiency Is this a current diagnosis for this admission?: Yes - Notes Notes: monitoring manager, this was reviewed. Twelve-lead EKG, these were reviewed. Chest x-ray: Results reviewed. Medications: These were reviewed. Labs: These were reviewed. Previous hospitalization records were reviewed. Office visit records were reviewed. Treatment/care plan: This was reviewed and discussed with involved personnel in the care of this patient and patient. Labs were reviewed. Congestive heart failure: Acute on chronic systolic and diastolic, predominantly systolic. Patient last seen in the office in November 2015 and has missed appointments. 2D echo more than a year old. Patient advised on salt and fluid restriction as well as compliance with medications. Mitral regurgitation: At least moderate based on echocardiogram. This would need to be followed closely. Patient to be educated about symptoms associated with worsening valve disease. This could include increasing shortness of breath , fatigue, tiredness, increased pedal edema, cardiac arrhythmias et cetera. Patient to be informed that periodic echocardiogram would be indicated as sometimes worsening LV function can progress without significant symptoms. No endocarditis prophylaxis indicated in the absence of mechanical valve. Patient encouraged to report any worsening of symptoms. Cardiomyopathy: Dilated cardio myopathy with EKG showing previous myocardial infarction. Medical regimen will be optimized. Hypertension: Reasonably well controlled. Blood pressure goal in this patient is 135/85 or less. This was discussed with the patient. Currently blood pressure under reasonable control. Continue with lisinopril and carvedilol. Discussed side effects of uncontrolled hypertension and also severe hypotension. CAD: Patient has CAD. Currently stable without any angina or angina equivalent symptoms. Discussed symptoms associated with unstable angina, acute coronary syndrome, myocardial infarction etc. patient to be educated in proper instruction for nitroglycerin use and proper use of emergency services. Aggressive risk factor modification advised. COPD patient encouraged to avoid first-hand and secondhand smoking. Patient also advised to avoid environmental pollutants. Patient to use bronchodilator and steroid therapy as has been prescribed by PMD and other specialists. Currently being treated with COPD exacerbation adequately. Passive congestion of the liver: This is being inferred based on abnormal liver function test. Recommend follow-up LFTs. - Time Time with patient: 15-25 minutes - CODE STATUS was discussed, patient remains full code. Surrogate decision-maker unchanged. Multiple medical problems were addressed. More than 50% of the time spent coordinating care, discussing management plans with involved caregivers. Management plans discussed with involved personnels. Medical decision making was of moderate to high complexity , patient's has multiple comorbidities.
--- NOTE | 2016-10-08 13:48 | PDOC DISCHARGE SUMMARY ---
General - Admit/Disc Date/PCP Admission Date/Primary Care Provider: 10/05/16 18:39 SAMIR ESCALONA MD Discharge Date: 10/08/16 - Discharge Diagnosis (1) Acute hypoxemic respiratory failure Is this a current diagnosis for this admission?: YesSummary: Secondary to acute COPD exacerbation and possibly congestive heart failure contributing also (2) COPD exacerbation Is this a current diagnosis for this admission?: Yes (3) Systolic and diastolic CHF, acute Is this a current diagnosis for this admission?: YesSummary: Acute on chronic. Evaluated with an echocardiogram which shows ejection fraction of 30%. Also seen by cardiology in consultation (4) Chronic passive congestion of liver Is this a current diagnosis for this admission?: Yes (5) Essential hypertension Is this a current diagnosis for this admission?: Yes (6) CAD (coronary artery disease) Is this a current diagnosis for this admission?: Yes - Additional Information Resuscitation Status: Full Code Discharge Diet: Cardiac Discharge Activity: Activity As Tolerated Home Medications: Digoxin [Lanoxin 0.125 mg Tablet] 0.125 mg PO DAILY #30 tablet 11/16/13 Furosemide [Lasix 20 mg Tablet] 20 mg PO BID #60 tablet 11/16/13 Atorvastatin Calcium 40 mg PO DAILY 10/05/16 Albuterol Sulfate [Ventolin Hfa] 1 puff PO Q4HP PRN 10/06/16 Carvedilol [Coreg 12.5 mg Tablet] 12.5 mg PO Q12 #60 tablet 10/08/16 Lisinopril [Prinivil 5 mg Tablet] 5 mg PO DAILY #30 tablet 10/08/16 Prednisone [Deltasone 20 mg Tablet] 10 mg PO DAILY #39 tablet 10/08/16 History of Present Illness History of Present Illness: ADAIR MARTINES is a 55 year old male with a history of systolic and diastolic congestive heart failure who presented with worsening shortness of breath for several days. The patient however did not have any paroxysmal nocturnal dyspnea or orthopnea. The patient has been a chronic smoker. The patient when he presented was found to have wheezing consistent with an acute COPD exacerbation. Hospital Course Hospital Course: 55-year-old male with a history of systolic and diastolic congestive heart failure who presented with shortness of breath. Patient was noted to have an acute COPD exacerbation. Patient was treated IV steroids and nebulizers. The patient eventually improved and was changed over to oral medications. Patient also did have a small component of congestive heart failure contributing to the respiratory failure. Patient was evaluated by cardiology who performed an echocardiogram. Patient was found to have an ejection fraction of 30%. The patient on the day of discharge no longer had any wheezing on exam. He also appeared to be euvolemic. Patient will be sent home on a prednisone taper. Physical Exam Vital Signs: Temp Pulse Resp BP Pulse Ox 97.9 F 67 13 98/67 L 97 10/08/16 11:31 10/08/16 11:31 10/08/16 11:31 10/08/16 11:31 10/08/16 11:31 Intake & Output 10/07/16 10/08/16 10/09/16 06:59 06:59 06:59 Intake Total 2238 2021 Output Total 525 Balance 1713 2021 Weight 68.1 kg 69.7 kg General appearance: PRESENT: no acute distress Eye exam: PRESENT: conjunctiva pink. ABSENT: scleral icterus Mouth exam: PRESENT: moist, tongue midline Neck exam: ABSENT: JVD Respiratory exam: PRESENT: clear to auscultation [place]. ABSENT: rales, rhonchi, wheezes Cardiovascular exam: PRESENT: RRR. ABSENT: diastolic murmur, rubs, systolic murmur GI/Abdominal exam: PRESENT: normal bowel sounds, soft. ABSENT: distended, guarding, mass, organolmegaly, rebound, tenderness Extremities exam: ABSENT: calf tenderness, clubbing, pedal edema Neurological exam: PRESENT: alert, awake, oriented to person, oriented to place , oriented to time, oriented to situation, CN II-XII grossly intact. ABSENT: motor sensory deficit Psychiatric exam: PRESENT: appropriate affect Skin exam: PRESENT: dry, intact, warm. ABSENT: cyanosis, rash Results Laboratory Results: 10/06/16 08:28 10/08/16 05:03 10/08/16 05:03 Sodium 137.0 Potassium 4.2 Chloride 101 Carbon Dioxide 27 Anion Gap 9 BUN 36 H Creatinine 1.09 Est GFR ( Amer) > 60 Est GFR (Non-Af Amer) > 60 Glucose 173 H Calcium 8.4 10/05/16 10/06/16 10/06/16 21:12 02:03 02:03 Creatine Kinase 87 CK-MB (CK-2) 0.90 0.70 Troponin I 0.015 0.017 10/06/16 10/06/16 08:28 08:28 Creatine Kinase 77 CK-MB (CK-2) 0.72 Troponin I < 0.012 Impressions: Chest X-Ray 10/05/16 16:20 IMPRESSION: Stable cardiomegaly. No pulmonary vascular congestion or focal infiltrate. Qualifiers PATEINT BEING DISCHARGED WITH ANY OF THE FOLLOWING DIAGNOSIS?: Heart Failure HF Pt being discharged on ACEI for LVEF less than 40%?: Yes HF Pt discharged on evidence-based Beta Jose:: Yes Plan Discharge Plan: Patient is discharged home in stable condition. Will follow up with primary care in 2 weeks. Also follow-up with cardiology in the next 2 weeks Time Spent: Greater than 30 Minutes
== END 2016-10-08 12:14 | disposition home or self-care (01) | DRG 291 ==
LOC: ER 16:05 → EH 18:39 → UNDOADMIN 18:42 → 3W 20:58
PROC: 5A09357 Assistance with Respiratory Ventilation, Less than 24 Consecutive Hours, Continuous Positive Airway Pressure (ICD-10-PCS; principal; 2016-10-05)
PROC: 3E0F73Z Introduction of Anti-inflammatory into Respiratory Tract, Via Natural or Artificial Opening (ICD-10-PCS; 2016-10-05)
DX: I11.0 Hypertensive heart disease with heart failure (principal); J96.01 Acute respiratory failure with hypoxia; J44.1 Chronic obstructive pulmonary disease with (acute) exacerbation; I50.43 Acute on chronic combined systolic (congestive) and diastolic (congestive) heart failure; I42.9 Cardiomyopathy, unspecified; F12.90 Cannabis use, unspecified, uncomplicated; K76.1 Chronic passive congestion of liver; I25.10 Atherosclerotic heart disease of native coronary artery without angina pectoris; I34.0 Nonrheumatic mitral (valve) insufficiency; F17.200 Nicotine dependence, unspecified, uncomplicated; Z95.5 Presence of coronary angioplasty implant and graft; Z82.49 Family history of ischemic heart disease and other diseases of the circulatory system; Z79.899 Other long term (current) drug therapy; Z79.52 Long term (current) use of systemic steroids; Z95.0 Presence of cardiac pacemaker
CPT/HCPCS: 36415; 71010; 80048; 80053; 80076; 80162; 80307; 81001; 82550; 82553; 82803; 82962; 83880; 84443; 84484; 85025; 85610; 85730; 87040; 93005; 93010; 93306; 94640; 94660; 96374; 96375; 99285; J1650; J1815; J1940; J2060; J2405; J2930; J3490; J7512; J7620

== ENCOUNTER 2016-11-17 00:31 | Inpatient (IN) | payer MEDICARE, MEDICAID ==
[2016-11-17] MEDS ORDERED: IPRATROPIUM/ALBUTEROL 0.5-2.5 MG/3 ML AMPUL NEB ONE ×2 (00:54→02:52)
--- NOTE | 2016-11-17 01:02 | ER Document Report ---
ED General - General Chief Complaint: Shortness Of Breath Stated Complaint: SHORTNESS OF BREATH Time Seen by Provider: 11/17/16 00:54 Notes: 55-year-old male with COPD and heart failure with defibrillator, estimated ejection fraction 30%, presents with symptoms of shortness of breath for 2 days , worse with movement and exertion. No position allergy. Moderate and increasing. Feels like "a freight train come through." No chest pain but intermittent chest pressure. Also coughing" I had the flu recently but I took all the NyQuil." Denies fevers or sputum. Denies leg swelling. Denies discharge from his ICD. TRAVEL OUTSIDE OF THE [place] IN LAST 30 DAYS: No - Related Data Allergies/Adverse Reactions: No Known Allergies Allergy (Verified 10/05/16 16:15) Past Medical History - General Information source: Patient - Social History Smoking Status: Former Smoker Family History: CAD, Hypertension Patient has suicidal ideation: No Patient has homicidal ideation: No - Past Medical History Cardiac Medical History: Reports: Hx Congestive Heart Failure, Hx Coronary Artery Disease, Hx Hypercholesterolemia, Hx Hypertension Pulmonary Medical History: Reports: Hx Bronchitis, Hx COPD Denies: Hx Tuberculosis Renal/ Medical History: Denies: Hx Peritoneal Dialysis Psychiatric Medical History: Denies: Hx Depression Past Surgical History: Reports: Hx Cardiac Catheterization - x3, Hx Cardiac Surgery - pacemaker, Hx Coronary Stent - Immunizations Immunizations up to date: Yes Hx Diphtheria, Pertussis, Tetanus Vaccination: Yes Hx Pneumococcal Vaccination: 11/12/12 Review of Systems - Review of Systems Notes: REVIEW OF SYSTEMS GEN: Denies fever, chills, weight loss ENT: Denies sore throat, nasal discharge, ear pain EYES: Denies blurry vision, eye pain, discharge CV: Chest pressure RESP: Cough, shortness of breath GI: Denies abdominal pain, nausea, vomiting, diarrhea MSK: Denies joint pain/swelling, edema, SKIN: Denies rash, skin lesions LYMPH: Denies swollen glands/lymph nodes NEURO: Denies headache, focal weakness or numbness, dizziness PSYCH: Denies depression, suicidal or homicidal ideation PHYSICAL EXAMINATION General: No acute distress, well-nourished Head: Atraumatic, normocephalic ENT: Mouth normal, oropharynx moist, no exudates or tonsillar enlargement Eyes: Conjunctiva normal, pupils equal, lids normal Neck: No JVD, supple, no guarding CVS: Normal rate, regular rhythm, no murmurs Resp: N mild tachypnea, no distress, crackles at bilateral bases with no wheezing. Good air movement. GI: Nondistended, soft, no tenderness to palpation, no rebound or guarding Ext: No deformities, no edema, normal range of motion in upper and lower ext Back: No CVA or midline TTP Skin: No rash, warm Lymphatic: No lymphadeopathy noted Neuro: Awake, alert. Face symmetric. GCS 15. Physical Exam - Vital signs Vitals: Temp Pulse Resp BP Pulse Ox 97.4 F 100 28 H 124/96 H 100 11/17/16 00:40 11/17/16 00:40 11/17/16 00:40 11/17/16 00:40 11/17/16 00:40 Course - Re-evaluation Re-evalutation: 11/17/16 00:59 85-year-old male with both CHF and COPD history presents with increasing dyspnea on exertion. Intermittent chest pressure. He looks well has no edema though he has some crackles in his lungs. No respiratory distress. Differential includes COPD exacerbation or CHF exacerbation or pneumonia. Will get chest x-ray labs BNP troponin and ECG. 11/17/16 03:09 Reevaluated at 3 AM. Slightly tachypneic but feeling well. X-ray read as normal. Given that he has crackles, his BNP is 11,000, and his symptoms he will need to be admitted. We will continue treating for COPD but he may have some CHF contributing as well as will give some Lasix. Discussed with Dr. Pratt who admitted at 308 to [facility]. - Vital Signs Vital signs: Temp Pulse Resp BP Pulse Ox 97.4 F 100 28 H 124/96 H 100 11/17/16 00:40 11/17/16 00:40 11/17/16 00:40 11/17/16 00:40 11/17/16 00:40 - Laboratory Result Diagrams: 11/17/16 01:20 11/17/16 01:20 Laboratory results interpreted by me: 11/17/16 11/17/16 11/17/16 01:20 01:20 01:20 RBC 4.25 L Hgb 12.5 L RDW 18.5 H Chloride 111 H BUN 24 H NT-Pro-B Natriuret Pep 02496 H - EKG Interpretation by Ca EKG shows normal: Sinus rhythm - [address] contraction. Borderline ST elevation in V5 only, is unchanged from prior. No ST depressions. Discharge - Discharge Clinical Impression: Shortness of breath Condition: Fair Disposition: ADMITTED INPATIENT Unit Admitted: [facility]
[2016-11-17 01:45] LABS: ABSOLUTE BASOPHILS # (AUTO) 0.1 10^3/uL (0.0-0.2); ABSOLUTE EOSINOPHILS # (AUTO) 0.1 10^3/uL (0.0-0.6); ABSOLUTE LYMPHOCYTES (AUTO) 2.3 10^3/uL (0.5-4.7); ABSOLUTE MONOCYTES (AUTO) 0.6 10^3/uL (0.1-1.4); ABSOLUTE NEUT (AUTO) 3.5 10^3/uL (1.7-8.2); EOSINOPHILS % (AUTO) 0.8 % (0-6); HEMATOCRIT 38.5 % (37.9-51.0); HEMOGLOBIN 12.5 g/dL (13.5-17.0); LYMPHOCYTES % (AUTO) 35.5 % (13-45); MEAN CORPUSCULAR HEMOGLOBIN 29.4 pg (27.0-33.4); MEAN CORPUSCULAR HGB CONC 32.4 g/dL (32.0-36.0); MEAN CORPUSCULAR VOLUME 91 fl (80-97); MONOCYTES % (AUTO) 9.2 % (3-13); RED BLOOD COUNT 4.25 10^6/uL (4.35-5.55); RED CELL DISTRIBUTION WIDTH 18.5 % (11.5-14.0); SEGMENTED NEUTROPHILS % (AUTO) 53.5 % (42-78); WHITE BLOOD COUNT 6.5 10^3/uL (4.0-10.5)
[2016-11-17 01:58] LABS: ANION GAP 8 (5-19); BLOOD UREA NITROGEN 24 mg/dL (7-20); CALCIUM 8.7 mg/dL (8.4-10.2); CARBON DIOXIDE 22 mmol/L (22-30); CHLORIDE 111 mmol/L (98-107); CREATININE RESULT 1.14 mg/dL (0.52-1.25); GLUCOSE 106 mg/dL (75-110); POTASSIUM 4.1 mmol/L (3.6-5.0); SODIUM 141.1 mmol/L (137-145)
--- NOTE | 2016-11-17 01:59 | RADIOLOGY REPORT (SQ) ---
EXAM DESCRIPTION: CHEST SINGLE VIEW COMPLETED DATE/TIME: 11/17/2016 1:41 am REASON FOR STUDY: sob COMPARISON: 07/07/2016. EXAM PARAMETERS: NUMBER OF VIEWS: One view. TECHNIQUE: Single frontal radiographic view of the chest acquired. RADIATION DOSE: NA LIMITATIONS: None. FINDINGS: LUNGS AND PLEURA: Small likely atelectasis or scar of the left mid lung field, chronic. MEDIASTINUM AND HILAR STRUCTURES: No masses. Contour normal. HEART AND VASCULAR STRUCTURES: Moderate chronic globular enlargement of the cardiac silhouette. BONES: No acute findings. HARDWARE: Left cardiac stimulation device and leads. OTHER: No other significant finding. IMPRESSION: No acute cardiopulmonary findings. Small chronic scar of the left mid lung field. Mode rate cardiac enlargement. TECHNICAL DOCUMENTATION: JOB ID: [id number]
[2016-11-17 02:24] LABS: TROPONIN I 0.015 ng/mL
[2016-11-17] MEDS ORDERED: FUROSEMIDE INJ/PF 40 MG/4 ML SDV IV ONE (02:51)
[2016-11-17] MEDS ORDERED: METHYLPREDNISOLONE INJ 125 MG/2 ML SDV IV ONE (02:52)
[2016-11-17] MEDS ORDERED: BENZONATATE 100 MG CAPSULE PO ONE (03:15)
[2016-11-17 04:01] LABS: VENOUS BLOOD BASE EXCESS -0.9 mmol/L; VENOUS BLOOD HCO3 23.7 mmol/L (20-32); VENOUS BLOOD PCO2 39.3 mmHg (35-63); VENOUS BLOOD PH 7.4 (7.30-7.42)
[2016-11-17] MEDS ORDERED: IPRATROPIUM/ALBUTEROL 0.5-2.5 MG/3 ML AMPUL NEB PRN (06:21)
[2016-11-17] MEDS ORDERED: AZITHROMYCIN INJ 500 MG VIAL IV PRN (06:24)
[2016-11-17] MEDS ORDERED: CEFEPIME INJ 1 GM VIAL IV PRN (06:26)
[2016-11-17 06:27] LABS: ADD ON TESTING BLD IN LAB ACKNOWLEDGE
[2016-11-17 06:36] LABS: ALANINE AMINOTRANSFERASE 76 U/L (21-72); ALBUMIN 3.1 g/dL (3.5-5.0); ALKALINE PHOSPHATASE 134 U/L (38-126); ASPARTATE AMINO TRANSFERASE 67 U/L (17-59); BILIRUBIN,DIRECT 0.4 mg/dL (0.0-0.4); TOTAL PROTEIN 6.3 g/dL (6.3-8.2)
[2016-11-17 06:37] LABS: ALCOHOL < 10 mg/dL (NONE DETECTED)
[2016-11-17] MEDS ORDERED: AZITHROMYCIN 500 MG in DEXTROSE 5%-WATER 250 ML IV ONE (07:00)
[2016-11-17] MEDS ORDERED: CEFEPIME 1 GM/D5W RTU 1 GM/50 ML RTUPB IV ONE ×2 (07:00→07:18)
[2016-11-17] MEDS ORDERED: CEFEPIME INJ 1 GM VIAL ONE (07:17)
[2016-11-17] MEDS ORDERED: AZITHROMYCIN INJ 500 MG VIAL IV ONE (07:17)
[2016-11-17] MEDS ORDERED: ALBUTEROL SULFATE 0.083% NEB 2.5 MG/3 ML AMPUL NEB PRN (08:13)
[2016-11-17] MEDS ORDERED: ACETAMINOPHEN 325 MG TABLET PO PRN (08:23)
--- NOTE | 2016-11-17 08:44 | PDOC H&P ---
History of Present Illness Admission Date/PCP: 11/17/16 03:29 Dr. lily Johnson Patient complains of: Difficulty breathing History of Present Illness: ADAIR MARTINES is a 55 year old -Luxembourger male with underlying non-home O2 dependent COPD, and chronic systolic congestive heart failure, status post implantation of AICD device who presents with 2 day history of slowly progressive difficulty breathing, in particular with much of any exertion. Denies chest pain, nausea vomiting, diarrhea or dysuria, fever or chills. No episodes of paroxysmal nocturnal dyspnea. Denies ankle swelling. Does not weigh himself. Does not think he has gained weight. Hospitalized on our service the till 08 October of this year with final diagnoses including acute hypoxic respiratory failure along with COPD exacerbation, and acute on chronic systolic congestive heart failure. Copies of the discharge summary history and physical have been reviewed. Since that hospital stay, he has basically been taking a double dose of Lasix twice a day. This is of his own accord. Of note, patient intermittently has a rather odd affect, and is a quite poor historian at times, rambling about topics not related to his health and not initiated by examiner. Patient has been discussed with emergency room physician who evaluated the patient. . Dictation via voice recognition software. Laboratory results are listed in [facility] and are reviewed. X-ray summary results are listed below, with full report(s) reviewed. . EKG reviewed and compared to prior tracing from the of last month.. Social history/personal habits: Single. 2 children. On disability due to his congestive heart failure. 3 cigarettes a day. Occasional marijuana and cocaine . Evasive when I tried to determine exactly how much alcohol he drinks. No known drug allergies. Home medications initially autopopulated into [facility] may not accurately reflect patient's true medications, dosages, and/or frequencies. field technical assistant to reconcile medications. Unfortunately, patient not certain of all medications/dosages/frequencies. REVIEW OF SYSTEMS: Constitutional: No fever or chills. Eyes: No vision complaints. ENT: No swallowing problems or complaints. Denies hearing loss. Pulmonary: See history and present illness. Cardiovascular: No current complaints, including chest pain. Gastrointestinal: No current complaints, including nausea or vomiting. Skin: No current complaints, including rashes. Hematologic: Denies easy bruising. Neurologic: No current complaints, including numbness or tingling. Musculoskeletal: No current or chronic joint complaints, such as arthritis. Psychiatric: Denies anxiety or depression. Endocrine: No current complaints, including polyuria. Genitourinary: No current complaints, including dysuria. PHYSICAL EXAMINATION: 2 female floor nurses present. 5 feet 10 inches tall. 69.5 kg. BMI 22 kg/m. Temperature 98.8. Pulse 102 and regular. Blood pressure 108/88. Respirations are 24 and unlabored. 100% saturation on 2 L oxygen per nasal cannula. Thin otherwise well-developed -Luxembourger male, somewhat chronically ill appearance, appearing approximately his stated age. Awake alert smiling cooperative. Somewhat anxious. Rather talkative at times. See history and present illness. Skin is warm and dry. No grossly obvious evidence of rash in areas of skin examined. No subcutaneous nodules palpated. ENT: Hearing grossly normal to normal conversation. Tongue midline on protrusion pink and slightly tacky. Eyes: No scleral icterus. Pupils equal and reactive to light at 4 mm. [place] conjunctivae. Neck is supple and nontender to gentle active range of motion and palpation. Midline trachea. No palpable thyroid nodule mass enlargement or tenderness. Lymphatic: No palpable cervical or clavicular nodes. Neck and lymphatic exams limited by patient body habitus. Psychiatric: At best poor to fair insight into acute and chronic medical issues. Oriented to time location and why here. See history and present illness. Lungs: Auscultation reveals clear and equal breath sounds bilaterally. No use of accessory respiratory muscles. Cardiovascular: Heart regular rate and rhythm, without gallop murmur or rub. No carotid or abdominal aortic bruits. No ankle or pedal edema. Palpable dorsalis pedis pulses. Abdomen:soft slightly distended nontender with positive bowel sounds. Unable to adequately evaluate abdomen for masses or organomegaly due to distention. Extremities: Feet are warm and dry. No calf tenderness to compression. No grossly obvious visual evidence of calf swelling. Gentle manipulation of lower extremities fails to reveal any obvious evidence of injury or instability to knees hips or ankles. Neurologic: Moves upper extremities grossly normally. Patellar reflexes absent. Absent Babinski. Light touch is intact at feet. Dorsiflexion and plantarflexion of feet 5 / 5 and symmetric. Past Medical History Cardiac Medical History: Reports: Congestive Heart Failure - Systolic, Coronary Artery Disease, Hyperlipidema, Hypertension Denies: Atrial Fibrillation, DVT, Pulmonary Embolism Pulmonary Medical History: Reports: Bronchitis, Chronic Obstructive Pulmonary Disease (COPD) Denies: Sleep Apnea, Tuberculosis EENT Medical History: Denies: Eyes, Ears, Throat Neurological Medical History: Denies: Hemorrhagic CVA, Ischemic CVA, Seizures Endocrine Medical History: Denies: Diabetes Mellitus Type 1, Diabetes Mellitus Type 2, Hyperthyroidism, Hypothyroidism Renal/ Medical History: Reports: None GI Medical History: Denies: Cirrhosis, Gastroesophageal Reflux Disease, Hepatitis, Peptic Ulcer Disease Musculoskeltal Medical History: Reports: Arthritis Skin Medical History: Reports: None Psychiatric Medical History: Reports: Alcohol Dependency, General Anxiety Disorder, Substance Abuse, Tobacco Dependency Denies: Depression Hematology: Reports: None Infectious Medical History: Denies: Hepatitis B, Hepatitis C Past Surgical History Past Surgical History: Reports: Cardiac Catheterization - x3, Coronary Stent Social History Information Source: Patient, Emergency Med Personnel, [facility] Records Smoking Status: Current Every Day Smoker Cigarettes Packs Per Day: 1 Number of Years Smokin Frequency of Alcohol Use: Occasional - Evasive when I attempted to determine how much alcohol he drinks. Hx Recreational Drug Use: Yes Drugs: Cocaine, Marijuana Hx Prescription Drug Abuse: No - Advance Directive Resuscitation Status: Full Code Surrogate healthcare decision maker:: Sister Catrachita Rachel Family History Family History: CAD, Hypertension Parental Family History Reviewed: Yes - Mother of gastric cancer; father congestive heart failure. Children Family History Reviewed: Yes - healthy Sibling(s) Family History Reviewed.: Yes - 2 siblings with congestive heart failure. Medication/Allergy Home Medications: Digoxin [Lanoxin 0.125 mg Tablet] 0.125 mg PO DAILY #30 tablet 11/16/13 Furosemide [Lasix 20 mg Tablet] 20 mg PO BID #60 tablet 11/16/13 Albuterol Sulfate [Ventolin Hfa] 1 puff PO Q4HP PRN 10/06/16 Lisinopril [Prinivil 5 mg Tablet] 5 mg PO DAILY #30 tablet 10/08/16 Albuterol Sulfate [Albuterol Sulfate 2.5mg/3 mL] 1 vial IH Q4HP PRN #30 vial 05/07 Doxycycline Hyclate [Vibramycin 100 mg Tablet] 100 mg PO Q12 #10 tablet Montelukast Sodium [Singulair 10 mg Tablet] 10 mg PO QHS #30 tablet 08/01/17 Nebulizer [Nebulizer Machine] 1 each ASDIR PRN #1 kit 11/19/16 Prednisone [Deltasone 10 mg Tablet] 10 mg PO ASDIR PRN #21 tablet 11/19/16 Allergies/Adverse Reactions: No Known Allergies Allergy (Verified 11/19/16 14:46) Physical Exam Vital Signs: Temp Pulse Resp BP Pulse Ox 98.8 F 104 H 32 H 125/100 H 100 11/17/16 05:22 11/17/16 05:22 11/17/16 05:22 11/17/16 05:22 11/17/16 06:29 Intake & Output 11/16/16 11/17/16 11/18/16 00:59 00:59 00:59 Intake Total 10 Balance 10 Weight 69.5 kg Results Laboratory Results: 11/17/16 03:39 VBG pH 7.40 VBG pCO2 39.3 VBG HCO3 23.7 VBG Base Excess -0.9 11/17/16 06:31 Troponin I 0.015 Impressions: Chest X-Ray 11/17/16 00:54 IMPRESSION: No acute cardiopulmonary findings. Small chronic scar of the left mid lung field. Moderate cardiac enlargement. Assessment & Plan - Diagnosis (1) COPD exacerbation Is this a current diagnosis for this admission?: YesPlan: Feel this is likely the cause of his respiratory distress, and not CHF exacerbation. Patient will be admitted under COPD exacerbation protocol. Incentive spirometry twice a day. Scheduled DuoNeb's. As needed albuterol nebs. Prednisone. Prevacid for gastritis prophylaxis. Antibiotics will consist of Rocephin and intravenous Zithromax.. I strongly encouraged patient to notify staff should patient feel that breathing is worsening. Patient is a full code. I have strongly encouraged patient not to get out of bed without notifying staff , to avoid a fall with injury. Knee high SCDs for DVT prophylaxis, along with subcutaneous Lovenox. Impression and plans were discussed with patient who concurs. Time spent in evaluation and management of patient: minutes. (2) Elevated LFTs Is this a current diagnosis for this admission?: YesPlan: Possibly at least partly due to ongoing alcohol use. Follow-up chemistry. (3) Tobacco dependency Is this a current diagnosis for this admission?: Yes (4) Alcohol use Is this a current diagnosis for this admission?: YesPlan: Daily multivitamin, thiamine, and folic acid. Observe closely for signs of alcohol withdrawal; none at present. (5) Systolic CHF, chronic Is this a current diagnosis for this admission?: YesPlan: Resume home medications as appropriate once these have been determined and reviewed. - Time Time Spent: 50 to 70 Minutes Anticipated discharge: Home Within: within 72 hours - Inpatient Certification Based on my medical assessment, after consideration of the patient's comorbidities, presenting symptoms, or acuity I expect that the services needed warrant INPATIENT care.: Yes I certify that my determination is in accordance with my understanding of Medicare's requirements for reasonable and necessary INPATIENT services [42 CFR 412.3e].: Yes Medical Necessity: Need Close Monitoring Due to Risk of Patient Decompensation, Need For Continuous Telemetry Monitoring, Need for Nebulizer Therapy and Monitoring of Response, Need for IV Antibiotics, Risk of Complication if Not Cared For in Hospital Post Hospital Care: D/C or Transfer Summary
[2016-11-17] MEDS ORDERED: LANSOPRAZOLE 30 MG TAB.RAP.DR PO ONE (09:00)
[2016-11-17] MEDS: MULTIVITAMIN TABLET PO SCH (10:15)
[2016-11-17] MEDS: PREDNISONE 20 MG TABLET PO SCH (10:15)
[2016-11-17 10:16] LABS: URINE BARBITURATES SCREEN NEGATIVE; URINE METHADONE SCREEN NEGATIVE; URINE OPIATES LOW NEGATIVE; URINE PHENCYCLIDINE SCREEN NEGATIVE
[2016-11-17] MEDS: FOLIC ACID 1 MG TABLET PO SCH (10:16)
[2016-11-17] MEDS: THIAMINE HCL 100 MG TABLET PO SCH (10:16)
[2016-11-17] MEDS: ENOXAPARIN SODIUM INJ 40 MG/0.4 ML DISP.SYRIN SUBCUT SCH (10:16)
--- NOTE | 2016-11-17 11:14 | EKG REPORT ---
SEVERITY:- ABNORMAL ECG - SINUS RHYTHM VENTRICULAR PREMATURE COMPLEX LEFT ATRIAL ABNORMALITY INFERIOR INFARCT, AGE INDETERMINATE LATERAL INFARCT, AGE INDETERMINATE MINIMAL ST ELEVATION, ANTERIOR LEADS : Confirmed by: Nayely Rodriguez MD 17-Nov-2016 11:14:35
[2016-11-17] MEDS: IPRATROPIUM/ALBUTEROL 0.5-2.5 MG/3 ML AMPUL NEB SCH ×2 (14:10→19:45)
[2016-11-17] MEDS: CEFEPIME HCL 1 GM in DEXTROSE 5%-WATER 50 ML IV SCH (17:32)
[2016-11-17] MEDS: GUAIFENESIN SYRP 200 MG/10 ML UDC PO PRN ×2 (17:36→23:20)
[2016-11-17] MEDS ORDERED: CEFEPIME 1 GM/D5W RTU 1 GM/50 ML RTUPB IV SCH (18:00)
[2016-11-17] MEDS ORDERED: AZITHROMYCIN 500 MG in DEXTROSE 5%-WATER 250 ML IV SCH (22:00)
[2016-11-17] MEDS: MAGNESIUM SULFATE/D5W 1 GM/100 ML RTUPB IV SCH (23:45)
[2016-11-18 00:04] LABS: ANION GAP 12 (5-19); BLOOD UREA NITROGEN 22 mg/dL (7-20); CALCIUM 8.6 mg/dL (8.4-10.2); CARBON DIOXIDE 19 mmol/L (22-30); CHLORIDE 108 mmol/L (98-107); CREATININE RESULT 1.09 mg/dL (0.52-1.25); GLUCOSE 234 mg/dL (75-110); POTASSIUM 4.1 mmol/L (3.6-5.0); SODIUM 138.7 mmol/L (137-145)
[2016-11-18] MEDS: MAGNESIUM SULFATE/D5W 1 GM/100 ML RTUPB IV SCH ×2 (00:46→01:42)
[2016-11-18 03:30] LABS: FREE T3 2.68 pg/mL (2.77-5.27)
--- NOTE | 2016-11-18 03:38 | EKG REPORT ---
SEVERITY:- ABNORMAL ECG - SINUS RHYTHM VENTRICULAR PREMATURE COMPLEX PROBABLE LEFT ATRIAL ABNORMALITY INFERIOR INFARCT, AGE INDETERMINATE LATERAL INFARCT, AGE INDETERMINATE CONSIDER ANTERIOR INFARCT : Confirmed by: Nayely Rodriguez MD 18-Nov-2016 03:37:49
[2016-11-18] MEDS: CEFEPIME HCL 1 GM in DEXTROSE 5%-WATER 50 ML IV SCH (05:29)
[2016-11-18] MEDS ORDERED: LANSOPRAZOLE 30 MG TAB.RAP.DR PO SCH (06:00)
[2016-11-18 06:49] LABS: ABSOLUTE BASOPHILS # (AUTO) 0.1 10^3/uL (0.0-0.2); ABSOLUTE EOSINOPHILS # (AUTO) 0.1 10^3/uL (0.0-0.6); ABSOLUTE LYMPHOCYTES (AUTO) 2.2 10^3/uL (0.5-4.7); ABSOLUTE MONOCYTES (AUTO) 1.3 10^3/uL (0.1-1.4); ABSOLUTE NEUT (AUTO) 9.3 10^3/uL (1.7-8.2); BASOPHILS % (AUTO) 0.4 % (0-2); EOSINOPHILS % (AUTO) 0.5 % (0-6); HEMATOCRIT 36.7 % (37.9-51.0); HGB HCT DIFFERENCE -0.7; LYMPHOCYTES % (AUTO) 17.1 % (13-45); MEAN CORPUSCULAR HEMOGLOBIN 29.2 pg (27.0-33.4); MEAN CORPUSCULAR HGB CONC 32.7 g/dL (32.0-36.0); MEAN CORPUSCULAR VOLUME 89 fl (80-97); MONOCYTES % (AUTO) 10.4 % (3-13); RED BLOOD COUNT 4.11 10^6/uL (4.35-5.55); RED CELL DISTRIBUTION WIDTH 18.8 % (11.5-14.0); SEGMENTED NEUTROPHILS % (AUTO) 71.6 % (42-78); WHITE BLOOD COUNT 12.9 10^3/uL (4.0-10.5)
[2016-11-18 07:02] LABS: ALANINE AMINOTRANSFERASE 69 U/L (21-72); ALBUMIN 3.2 g/dL (3.5-5.0); ALKALINE PHOSPHATASE 117 U/L (38-126); ANION GAP 10 (5-19); ASPARTATE AMINO TRANSFERASE 36 U/L (17-59); BILIRUBIN,DIRECT 0.3 mg/dL (0.0-0.4); BILIRUBIN,TOTAL 0.8 mg/dL (0.2-1.3); BLOOD UREA NITROGEN 19 mg/dL (7-20); CALCIUM 8.5 mg/dL (8.4-10.2); CARBON DIOXIDE 20 mmol/L (22-30); CHLORIDE 108 mmol/L (98-107); CREATININE RESULT 0.96 mg/dL (0.52-1.25); GLUCOSE 111 mg/dL (75-110); POTASSIUM 4.1 mmol/L (3.6-5.0); SODIUM 138.2 mmol/L (137-145); TOTAL PROTEIN 6.2 g/dL (6.3-8.2)
[2016-11-18] MEDS ORDERED: ALBUTEROL SULFATE 0.042% NEB (1.25 MG/3 ML) AMPUL NEB PRN (07:59)
--- NOTE | 2016-11-18 08:32 | PROGRESS NOTE E ---
Progress Note NAME: ADAIR MARTINES : 1960 AGE: 55Y DATE: 11/18/2016 ROOM: 335 SUBJECTIVE: The patient is currently out of bed to the beside chair. He states that he does feel better today, still admits to feeling quite wheezy. The patient denies any nausea, vomiting. No diarrhea, dizziness, chest pain. He does admit to shortness of breath with activity. The patient has been afebrile. His blood pressure has been in a good range, and the patient does not voice any other concerns at this time. REVIEW OF SYSTEMS: Rest of review of systems negative. MEDICATIONS: Medications have been reviewed. OBJECTIVE: GENERAL: The patient is a 55-year-old -[place] male who is awake, alert, and oriented to person, place, time, and situation. He is verbal, conversational, does not appear to be in any acute distress. VITAL SIGNS: Temperature is 98.0, pulse 91, respirations 18, blood pressure is 106/60, oxygen saturation 100% on 3 L nasal cannula. SKIN: Warm and dry. No rash. Not diaphoretic. HEENT: Pupils equal, round, and reactive to light and accommodation. Conjunctivae pink. No JVP. CARDIOVASCULAR SYSTEM: Heart is regular. There is no murmur or rub. CHEST: Expiratory wheezes are noted throughout both lung eng with coarse lung sounds. ABDOMEN: Soft, nontender, nondistended. BACK: No CVA tenderness or sacral edema. EXTREMITIES: No clubbing, cyanosis, edema. PSYCHIATRIC: Appropriate affect. Pleasant mood. DIAGNOSTICS: Lab values are as follows: Hematology obtained on 11/18/2016: WBCs are 12.9, hemoglobin is 12.0, hematocrit is 36.7, platelet count is 208,000. Chemistry obtained on 11/18/2016: Sodium is 138, potassium 4.1, chloride is 108, carbon dioxide 20, BUN 19, creatinine is 0.96, glucose 111. Calcium is 8.5, bilirubin is 0.8, AST 36, ALT is 69, Alk phos 117, total protein 6.2, albumin 3.2. IMPRESSION AND PLAN: 1. CHRONIC OBSTRUCTIVE PULMONARY DISEASE EXACERBATION. Will continue steroids, nebulizers, as well as supplemental O2. Will ambulate and determine how well the patient is doing as far as his oxygen. 2. ACUTE ON CHRONIC HYPOXEMIC RESPIRATORY FAILURE SECONDARY TO THE ABOVE. Overall, the patient does appear improved. 3. CHRONIC SYSTOLIC AND DIASTOLIC CONGESTIVE HEART FAILURE. The patient does not show any evidence of volume overload at this time. Will continue current regimen. Will continue to hold the patient's beta terrie given his positive cocaine on admission. The patient's last recorded EF was 30%. 4. HYPERTENSION. Blood pressure has been in a good range. 5. CORONARY ARTERY DISEASE. Will continue the patient's home medication and add a baby aspirin. 6. COCAINE USE. The patient has been counseled regarding this. DISPOSITION: The patient is a FULL CODE. Pending patient's symptomatology and diagnostic findings, will re-evaluate in the a.m. for discharge. The patient can be downgraded to a medical bed. Time spent on this followup including assessment, plan, physical examination, patient education is 25 minutes. DICTATING PHYSICIAN: SPARKLE VIDAL NP [id number] PHY#: [id number] ID: [id number] JOB#: [id number] ACCT: [id number] cc: >
[2016-11-18] MEDS: MULTIVITAMIN TABLET PO SCH (09:22)
[2016-11-18] MEDS: GUAIFENESIN 600 MG TABLET.SA PO SCH ×2 (09:22→22:13)
[2016-11-18] MEDS: PREDNISONE 20 MG TABLET PO SCH (09:23)
[2016-11-18] MEDS: FUROSEMIDE 20 MG TABLET PO SCH ×2 (09:23→17:11)
[2016-11-18] MEDS: DOXYCYCLINE HYCLATE 100 MG TABLET PO SCH ×2 (09:24→22:12)
[2016-11-18] MEDS: FAMOTIDINE 20 MG TABLET PO SCH ×2 (09:24→22:14)
[2016-11-18] MEDS: LORATADINE 10 MG TABLET PO SCH (09:24)
[2016-11-18] MEDS: DIGOXIN 0.125 MG TABLET PO SCH (09:24)
[2016-11-18] MEDS: FOLIC ACID 1 MG TABLET PO SCH (09:24)
[2016-11-18] MEDS: THIAMINE HCL 100 MG TABLET PO SCH (09:25)
[2016-11-18] MEDS: ENOXAPARIN SODIUM INJ 40 MG/0.4 ML DISP.SYRIN SUBCUT SCH (09:25)
[2016-11-18] MEDS: LISINOPRIL 5 MG TABLET PO SCH (09:29)
[2016-11-18] MEDS: FLUTICASONE NASAL SPRAY 50 MCG/SPRY 120 SPRAY/16 GM NASL SCH ×2 (09:29→22:15)
[2016-11-18] MEDS ORDERED: CARVEDILOL 12.5 MG TABLET PO SCH (10:00)
[2016-11-18] MEDS: ALBUTEROL SULFATE 0.083% NEB 2.5 MG/3 ML AMPUL NEB SCH ×2 (13:54→20:04)
[2016-11-18] MEDS: LORAZEPAM 1 MG TABLET PO PRN (16:54)
[2016-11-18] MEDS ORDERED: MONTELUKAST SODIUM 10 MG TABLET PO SCH (22:00)
[2016-11-19] MEDS: LORAZEPAM 1 MG TABLET PO PRN (06:55)
[2016-11-19] MEDS: ALBUTEROL SULFATE 0.083% NEB 2.5 MG/3 ML AMPUL NEB SCH (07:43)
[2016-11-19 08:11] VITALS: BP 103/66
[2016-11-19] MEDS: DIGOXIN 0.125 MG TABLET PO SCH (09:21)
[2016-11-19] MEDS: FOLIC ACID 1 MG TABLET PO SCH (09:22)
[2016-11-19] MEDS: LISINOPRIL 5 MG TABLET PO SCH (09:22)
[2016-11-19] MEDS: MULTIVITAMIN TABLET PO SCH (09:23)
[2016-11-19] MEDS: GUAIFENESIN 600 MG TABLET.SA PO SCH (09:23)
[2016-11-19] MEDS: FAMOTIDINE 20 MG TABLET PO SCH (09:23)
[2016-11-19] MEDS: FUROSEMIDE 20 MG TABLET PO SCH (09:23)
[2016-11-19] MEDS: LORATADINE 10 MG TABLET PO SCH (09:24)
[2016-11-19] MEDS: PREDNISONE 20 MG TABLET PO SCH (09:24)
[2016-11-19] MEDS: THIAMINE HCL 100 MG TABLET PO SCH (09:24)
[2016-11-19] MEDS: DOXYCYCLINE HYCLATE 100 MG TABLET PO SCH (09:24)
[2016-11-19] MEDS ORDERED: LORAZEPAM 1 MG TABLET PO ONE (09:30)
--- NOTE | 2016-11-19 11:38 | DISCHARGE SUMMARY E ---
Discharge Summary NAME: ADAIR MARTINES : 1960 AGE: 55Y ADMITTED: 11/17/2016 DISCHARGED: 11/19/2016 CODE STATUS: FULL CODE. OUTPATIENT TELEHEALTH COORDINATOR: Dr. Johnson DISCHARGE DIAGNOSES INCLUDE: 1. Chronic obstructive pulmonary disease exacerbation. 2. Acute on chronic hypoxemic respiratory failure secondary to above. 3. Chronic systolic and diastolic congestive heart failure. 4. Cocaine use. 5. Hypertension. 6. Coronary artery disease. DISCHARGE MEDICATIONS INCLUDE: 1. Prednisone 60 mg tapered. 2. Singulair 10 mg p.o. at hour of sleep. 3. Lisinopril 5 mg p.o. daily. 4. Doxycycline 100 mg p.o. every 12 hours, 10 tablets with 0 refills. 5. Digoxin 0.125 mg p.o. daily, 30 tablets with 0 refills. 6. Albuterol HFA 1 puff inhalation every 4 hours p.r.n. DIET: Heart healthy. ACTIVITY: As tolerated. DIAGNOSTICS: Lab values are as follows. Hematology obtained on 11/18/2016: WBCs are 12.9, hemoglobin is 12, hematocrit 36.7, platelet count is 208,000. Chemistry obtained on 11/18/2016: Sodium is 138, potassium 4.1, chloride is 108, carbon dioxide 20, BUN 19, creatinine is 0.96, glucose 111, calcium is 8.5, bilirubin is 0.8, AST 36, ALT 39, alk phos 117, troponin 0.013, total protein 6.2, albumin 3.2, TSH is 0.79. Toxicology screen: Digoxin level is 0.40. Cocaine was positive. Chest x-ray obtained on 11/17/2016 reveals no acute cardiopulmonary findings, moderate cardiac enlargement. EKG obtained on 11/17/2016 reveals sinus rhythm. PHYSICAL EXAMINATION: GENERAL: On examination, the patient is a well-developed, reasonably nourished 55-year-old -Citizen Of [place] male who is awake and alert. He is oriented to person, place, time, situation. He is verbal, conversational. He does not appear to be in any acute physical distress. VITAL SIGNS: As follows: Temperature is 97.7, pulse 99, respirations 16, blood pressure is 103/66, oxygen saturation is 95% on room air. SKIN: Warm and dry. No rash, not diaphoretic. HEENT: Pupils equal, round, and reactive to light and accommodation. Conjunctivae pink. No JVP. CARDIOVASCULAR: Heart is regular. There is no murmur or rub. CHEST: Diminished, symmetrical, unlabored. ABDOMEN: Soft, nontender, nondistended. BACK: No CVA tenderness or sacral edema. EXTREMITIES: No clubbing, cyanosis, edema. PSYCHIATRIC: The patient is anxious for discharge. HISTORY OF PRESENT ILLNESS: The patient is a 55-year-old -Citizen Of [place] male with a past medical history of cardiomyopathy and consistent cocaine use. The patient presented to the emergency department with a chief complaint of dyspnea. The patient has chronic COPD, is not O2 dependent, but does continue to smoke. The patient denied any chest pain. No nausea, vomiting, diarrhea, dysuria, fever, chills, just progressive shortness of breath, especially with exertion. The patient denies any paroxysmal nocturnal dyspnea, denies any edema. The patient was recently on our service from the through the 08 of October due to COPD exacerbation as well as acute CHF exacerbation. However, given the patient's respiratory distress on presentation, he was referred to the hospitalist for admission and management. HOSPITAL COURSE: The patient was admitted to a continuous telemetry unit. Serial cardiac enzymes were obtained which were not suggestive. The patient remained afebrile. His blood pressure has been in a good range. The patient was started on steroids and nebulizers and the patient's symptoms did improve. The patient had no evidence of volume overload; however, he was resumed on his home medications, except for beta terrie given the patient's positive cocaine screen. The patient has declined any form of rehabilitation from this. Therefore, expressed complications that could be possible with concurrent use with beta terrie, and so this has been discontinued. The patient's symptoms improved significantly. The patient is able to fully complete sentences and is quite anxious for discharge. DISCHARGE PLANNING: The patient is advised to follow up with his primary care provider and research & analytics manager within 1-2 weeks for hospital followup. Time spent on this discharge, including assessment/plan, physical examination, patient education, and review of records, is 25 minutes. DICTATING PHYSICIAN: SPARKLE VIDAL NP [id number] PHY#: [id number] ID: [id number] JOB#: [id number] ACCT: [id number] cc:TEO VASQUEZ M.D. SPARKLE VIDAL NP > GUER[place]
== END 2016-11-19 10:11 | disposition home or self-care (01) | DRG 190 ==
LOC: ER 00:31 → UNDOADMIN 03:29 → EH 03:29 → 3S 05:18 → EH 05:18 → 3S 08:13
PROVIDERS: ADMIT Family Medicine; ATTEND Family Medicine
PROC: 3E0F73Z Introduction of Anti-inflammatory into Respiratory Tract, Via Natural or Artificial Opening (ICD-10-PCS; principal; 2016-11-17)
DX: J44.1 Chronic obstructive pulmonary disease with (acute) exacerbation (principal); J96.21 Acute and chronic respiratory failure with hypoxia; I50.42 Chronic combined systolic (congestive) and diastolic (congestive) heart failure; I42.9 Cardiomyopathy, unspecified; I11.0 Hypertensive heart disease with heart failure; F14.90 Cocaine use, unspecified, uncomplicated; F12.90 Cannabis use, unspecified, uncomplicated; F17.210 Nicotine dependence, cigarettes, uncomplicated; Z79.899 Other long term (current) drug therapy; Z72.89 Other problems related to lifestyle; Z79.52 Long term (current) use of systemic steroids
CPT/HCPCS: 36415; 71010; 80048; 80053; 80076; 80162; 80307; 82803; 82962; 83735; 83880; 84439; 84443; 84481; 84484; 85025; 93005; 93010; 94640; 94667; 94668; 94799; 96374; 96375; 99285; J0456; J0692; J1650; J1940; J2930; J3475; J3490; J7060; J7512; J7620

== ENCOUNTER 2016-11-19 13:40 | Emergency (ER) | payer MEDICARE, MEDICAID ==
--- NOTE | 2016-11-19 14:26 | ER Document Report ---
ED General - General Stated Complaint: SHORTNESS OF BREATH Time Seen by Provider: 11/19/16 13:51 Mode of Arrival: Medic Information source: Patient Notes: 55-year-old male history of CHF COPD presents with complaints of difficulty breathing. Patient was recently discharged from the hospital a few days ago. Patient notes difficulty breathing over the past 2 days, patient notes that he is unable to go more than a few steps become tired. Patient has difficulty finishing sentences TRAVEL OUTSIDE OF THE [place] IN LAST 30 DAYS: No - HPI Onset: Other - 2 day duration Onset/Duration: Persistent Quality of pain: No pain Severity: Moderate Pain Level: Denies Associated symptoms: Nonproductive cough, Shortness of breath Exacerbated by: Walking Relieved by: Denies Similar symptoms previously: Yes Recently seen / treated by doctor: Yes - Related Data Allergies/Adverse Reactions: No Known Allergies Allergy (Verified 11/19/16 14:46) Past Medical History - Social History Smoking Status: Current Every Day Smoker Cigarette use (# per day): Yes Chew tobacco use (# tins/day): No Smoking Education Provided: No Family History: CAD, Hypertension - Past Medical History Cardiac Medical History: Reports: Hx Congestive Heart Failure - Systolic, Hx Coronary Artery Disease, Hx Hypercholesterolemia, Hx Hypertension Denies: Hx Atrial Fibrillation, Hx DVT, Hx Pulmonary Embolism Pulmonary Medical History: Reports: Hx Bronchitis, Hx COPD Denies: Hx Sleep Apnea, Hx Tuberculosis Neurological Medical History: Denies: Hx Seizures Endocrine Medical History: Denies: Hx Diabetes Mellitus Type 1, Hx Diabetes Mellitus Type 2, Hx Hyperthyroidism, Hx Hypothyroidism Renal/ Medical History: Denies: Hx Peritoneal Dialysis GI Medical History: Denies: Hx Cirrhosis, Hx Gastroesophageal Reflux Disease, Hx Hepatitis Musculoskeltal Medical History: Reports Hx Arthritis Psychiatric Medical History: Denies: Hx Depression Infectious Medical History: Denies: Hx Hepatitis Past Surgical History: Reports: Hx Cardiac Catheterization - x3, Hx Cardiac Surgery - pacemaker, Hx Coronary Stent - Immunizations Immunizations up to date: Yes Hx Diphtheria, Pertussis, Tetanus Vaccination: Yes Hx Pneumococcal Vaccination: 11/12/12 Review of Systems - Review of Systems Notes: REVIEW OF SYSTEMS: CONSTITUTIONAL : Denies fever, chills, or sweats. Denies recent illness. EENT: Denies eye, ear, throat, or mouth pain or symptoms. Denies nasal or sinus congestion or discharge. Denies throat, tongue, or mouth swelling or difficulty swallowing. CARDIOVASCULAR: Denies chest pain. Denies palpitations or racing or irregular heart beat. Denies ankle edema. RESPIRATORY: Admits to shortness of breath for the breathing GASTROINTESTINAL: Denies abdominal pain or distention. Denies nausea, vomiting , or diarrhea. Denies blood in vomitus, stools, or per rectum. Denies black, tarry stools. Denies constipation. GENITOURINARY: Denies difficulty urinating, painful urination, burning, frequency, blood in urine, or discharge. MUSCULOSKELETAL: Denies back or neck pain or stiffness. Denies joint pain or swelling. SKIN: Denies rash, lesions or sores. HEMATOLOGIC : Denies easy bruising or bleeding. LYMPHATIC: Denies swollen, enlarged glands. NEUROLOGICAL: Denies confusion or altered mental status. Denies passing out or loss of consciousness. Denies dizziness or lightheadedness. Denies headache. Denies weakness or paralysis or loss of use of either side. Denies problems with gait or speech. Denies sensory loss, numbness, or tingling. Denies seizures. PSYCHIATRIC: Denies anxiety or stress. Denies depression, suicidal ideation, or homicidal ideation. ALL OTHER SYSTEMS REVIEWED AND NEGATIVE. Dictation was performed using [employer] voice recognition software PHYSICAL EXAMINATION: GENERAL: Ill-appearing male with mild respiratory distress HEAD: Atraumatic, normocephalic. EYES: Pupils equal round and reactive to light, extraocular movements intact, sclera anicteric, conjunctiva are normal. ENT: Nares patent, oropharynx clear without exudates. Moist mucous membranes. NECK: Normal range of motion, supple without lymphadenopathy LUNGS: Rhonchorous at the bases HEART: Regular rate and rhythm without murmurs ABDOMEN: Soft, nontender, nondistended abdomen. No guarding, no rebound. No masses appreciated. Musculoskeletal: Normal range of motion, no pitting or edema. No cyanosis. NEUROLOGICAL: Cranial nerves grossly intact. Normal speech, normal gait. Normal sensory, motor exams PSYCH: Normal mood, normal affect. SKIN: Warm, Dry, normal turgor, no rashes or lesions noted. Physical Exam - Vital signs Vitals: Resp Pulse Ox 16 96 11/19/16 12:58 11/19/16 12:58 Course - Re-evaluation Re-evalutation: 11/19/16 14:54 Lab work pending patient otherwise now well-appearing 11/19/16 16:28 I am not finding a specific cause of the patient's presentation I have asked Ms. Neville for discharge the patient today to evaluate the patient again 11/19/16 16:39 Patient CTA does note a possible nodule, patient has been made very aware of this. Jamin has evaluated the patient patient admits that he is just anxious and felt like he was short of breath that is why he came in. She believes he is stable for discharge and will discharge him at this time - Vital Signs Vital signs: Temp Pulse Resp BP Pulse Ox 97.7 F 23 H 123/103 H 99 11/19/16 14:00 11/19/16 15:31 11/19/16 15:32 11/19/16 15:31 - Laboratory Result Diagrams: 11/19/16 14:10 11/19/16 14:10 Laboratory results interpreted by me: 11/19/16 11/19/16 11/19/16 14:10 14:10 14:10 Hgb 13.1 L RDW 19.3 H Seg Neutrophils % 81.9 H Lymphocytes % 12.0 L Absolute Neutrophils 8.4 H VBG pH Chloride 108 H Carbon Dioxide 19 L BUN 25 H Glucose 137 H Total Bilirubin 1.4 H AST 76 H ALT 126 H NT-Pro-B Natriuret Pep 02760 H Urine Protein Urine Blood 11/19/16 11/19/16 14:36 14:36 Hgb RDW Seg Neutrophils % Lymphocytes % Absolute Neutrophils VBG pH 7.43 H Chloride Carbon Dioxide BUN Glucose Total Bilirubin AST ALT NT-Pro-B Natriuret Pep Urine Protein 30 H Urine Blood SMALL H - Diagnostic Test Radiology reviewed: Image reviewed, Reports reviewed - Report given to patient Discharge - Discharge Clinical Impression: COPD exacerbation, Tobacco dependency, Dilated cardiomyopathy Condition: Stable Disposition: HOME, SELF-CARE Referrals: SAMIR ESCALONA MD [Primary Care Provider] - Follow up tomorrow
[2016-11-19 14:33] LABS: ABSOLUTE LYMPHOCYTES (AUTO) 1.2 10^3/uL (0.5-4.7); ABSOLUTE MONOCYTES (AUTO) 0.6 10^3/uL (0.1-1.4); ABSOLUTE NEUT (AUTO) 8.4 10^3/uL (1.7-8.2); BASOPHILS % (AUTO) 0.5 % (0-2); EOSINOPHILS % (AUTO) 0.1 % (0-6); HEMATOCRIT 39.9 % (37.9-51.0); HEMOGLOBIN 13.1 g/dL (13.5-17.0); HGB HCT DIFFERENCE -0.6; MEAN CORPUSCULAR HEMOGLOBIN 29.2 pg (27.0-33.4); MEAN CORPUSCULAR HGB CONC 32.8 g/dL (32.0-36.0); MEAN CORPUSCULAR VOLUME 89 fl (80-97); MONOCYTES % (AUTO) 5.5 % (3-13); RED BLOOD COUNT 4.47 10^6/uL (4.35-5.55); RED CELL DISTRIBUTION WIDTH 19.3 % (11.5-14.0); SEGMENTED NEUTROPHILS % (AUTO) 81.9 % (42-78); WHITE BLOOD COUNT 10.2 10^3/uL (4.0-10.5)
--- NOTE | 2016-11-19 14:33 | RADIOLOGY REPORT (SQ) ---
EXAM DESCRIPTION: CHEST SINGLE VIEW COMPLETED DATE/TIME: 11/19/2016 2:18 pm REASON FOR STUDY: chf copd COMPARISON: 11/17/2016 EXAM PARAMETERS: NUMBER OF VIEWS: One view. TECHNIQUE: Single frontal radiographic view of the chest acquired. RADIATION DOSE: NA LIMITATIONS: None. FINDINGS: LUNGS AND PLEURA: No opacities, masses or pneumothorax. No pleural effusion. MEDIASTINUM AND HILAR STRUCTURES: No masses. Contour normal. HEART AND VASCULAR STRUCTURES: Cardiomegaly. BONES: No acute findings. HARDWARE: Pacemaker on the left. OTHER: No other significant finding. IMPRESSION: Cardiomegaly without CHF. TECHNICAL DOCUMENTATION: JOB ID: [id number]
[2016-11-19 14:51] LABS: APPEARANCE,URINE CLEAR; BILIRUBIN,URINE NEGATIVE (NEGATIVE); GLUCOSE, URINE NEGATIVE (NEGATIVE); KETONES,URINE NEGATIVE (NEGATIVE); LEUKOCYTE ESTERASE,URINE NEGATIVE (NEGATIVE); NITRITE,URINE NEGATIVE (NEGATIVE); PROTEIN,URINE 30 mg/dL (NEGATIVE); URINE SPECIFIC GRAVITY 1.012; UROBILINOGEN,URINE NEGATIVE mg/dL (<2.0)
[2016-11-19] MEDS ORDERED: IPRATROPIUM/ALBUTEROL 0.5-2.5 MG/3 ML AMPUL NEB ONE ×2 (14:52)
[2016-11-19 14:54] LABS: ALANINE AMINOTRANSFERASE 126 U/L (21-72); ALBUMIN 3.6 g/dL (3.5-5.0); ALKALINE PHOSPHATASE 126 U/L (38-126); ANION GAP 12 (5-19); ASPARTATE AMINO TRANSFERASE 76 U/L (17-59); BILIRUBIN,DIRECT 0.4 mg/dL (0.0-0.4); BILIRUBIN,TOTAL 1.4 mg/dL (0.2-1.3); BLOOD UREA NITROGEN 25 mg/dL (7-20); CARBON DIOXIDE 19 mmol/L (22-30); CHLORIDE 108 mmol/L (98-107); CREATINE KINASE 78 U/L (55-170); CREATININE RESULT 1.01 mg/dL (0.52-1.25); GLUCOSE 137 mg/dL (75-110); POTASSIUM 4.6 mmol/L (3.6-5.0); SODIUM 138.6 mmol/L (137-145); TOTAL PROTEIN 6.8 g/dL (6.3-8.2)
[2016-11-19 15:02] LABS: CREATINE KINASE MB 0.9 ng/mL (<4.55); TROPONIN I 0.012 ng/mL
[2016-11-19 15:08] LABS: VENOUS BLOOD BASE EXCESS -0.4 mmol/L; VENOUS BLOOD HCO3 23.3 mmol/L (20-32); VENOUS BLOOD PCO2 35.6 mmHg (35-63); VENOUS BLOOD PH 7.43 (7.30-7.42)
--- NOTE | 2016-11-19 15:54 | RADIOLOGY REPORT (SQ) ---
EXAM DESCRIPTION: CT HEAD WITHOUT COMPLETED DATE/TIME: 11/19/2016 3:44 pm REASON FOR STUDY: altered COMPARISON: None. TECHNIQUE: Axial images acquired through the brain without intravenous contrast. Images reviewed wi th bone, brain and subdural windows. Images stored on PACS. All CT scanners at this facility use dose modulation, iterative reconstruction, and/or weight based d osing when appropriate to reduce radiation dose to as low as reasonably achievable (ALARA). [facility]: Dose Right [facility]: CareDose [facility]: Dose Right [facility]: Teradose 4D [facility]: KAYAK RADIATION DOSE: Up-to-date CT equipment and radiation dose reduction techniques were employed. CTDIv ol: 49.0 mGy. DLP: 1958 mGy-cm. mGy. LIMITATIONS: None. FINDINGS: VENTRICLES: Normal size and contour. CEREBRUM: No masses. No hemorrhage. No midline shift. Normal gomez/white matter differentiation. D ecreased attenuation in the posterior right parietal lobe likely due to old infarct. No evidence for acute infarction. CEREBELLUM: No masses. No hemorrhage. No alteration of density. No evidence for acute infarction. EXTRAAXIAL SPACES: No fluid collections. No masses. ORBITS AND GLOBE: No intra- or extraconal masses. Normal contour of globe without masses. CALVARIUM: No fracture. PARANASAL SINUSES: Prominent soft tissue in the left nasal cavity and left ethmoid air cells. SOFT TISSUES: No mass or hematoma. OTHER: No other significant finding. IMPRESSION: 1. 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 NO APPARENT ACUTE FINDINGS. 2. PROMINENT SOFT TISSUE IN THE LEFT NASAL CAVITY AND LEFT ETHMOID AIR CELLS. THIS MAY BE DUE TO JUAQUIN AL POLYPOSIS. TECHNICAL DOCUMENTATION: JOB ID: [id number] Quality ID # [id number]: Final reports with documentation of one or more dose reduction techniques (e.g., Au tomated exposure control, adjustment of the mA and/or kV according to patient size, use of iterative reconstruction technique) 2010 [employer]- All Rights Reserved
--- NOTE | 2016-11-19 16:26 | RADIOLOGY REPORT (SQ) ---
EXAM DESCRIPTION: CTA CHEST COMPLETED DATE/TIME: 11/19/2016 4:01 pm REASON FOR STUDY: sob COMPARISON: None. TECHNIQUE: CT scan of the chest performed using helical scanning technique with dynamic intravenous contrast injection. Images reviewed with lung, soft tissue and bone windows. Reconstructed coronal and sagittal MPR images reviewed. Additional 3 dimensional post-processing performed to develop Maximal Intensity Projection images (ID P). All images stored on PACS. All CT scanners at this facility use dose modulation, iterative reconstruction, and/or weight based d osing when appropriate to reduce radiation dose to as low as reasonably achievable (ALARA). [facility]: Dose Right [facility]: CareDose [facility]: Dose Right [facility]: Teradose 4D [facility]: Thubrikar Aortic Valve CONTRAST TYPE AND DOSE: contrast/concentration: Isovue 370.00 mg/ml; Total Contrast Delivered: 63.0 ml; Total Saline Delivered: 69.1 ml RENAL FUNCTION: Creatinine 1 BUN 25 RADIATION DOSE: Up-to-date CT equipment and radiation dose reduction techniques were employed. CTDIv ol: 9.4 - 20.7 mGy. DLP: 423 mGy-cm. . LIMITATIONS: None. FINDINGS: LUNGS AND PLEURA: There is a 33 mm retro hilar opacity on the right in the medial aspect o f the right lower lobe. Subsegmental atelectasis is suggested in lingula. AORTA AND GREAT VESSELS: No aneurysm or dissection. HEART: The heart is enlarged. PULMONARY ARTERIES: No emboli visualized in the main pulmonary arteries or the segmental branches. HILAR AND MEDIASTINAL STRUCTURES: There are some prominent upper mediastinal nodes. There is precari nal node measuring 16 mm. There is a 12 x 27 mm node adjacent to the aortic arch. HARDWARE: Pacemaker. UPPER ABDOMEN: No significant findings. Limited exam. THYROID AND OTHER SOFT TISSUES: No masses. No adenopathy. BONES: No acute or significant finding. 3D MIPS: Confirm above findings. OTHER: No other significant finding. IMPRESSION: 1. There is no evidence of pulmonary emboli. 2. Cardiomegaly. 3. Mild upper abdominal adenopathy. 4. THERE IS A 33 MM RETRO HILAR OPACITY ON THE RIGHT. NEOPLASM VERSUS PNEUMONIA. TECHNICAL DOCUMENTATION: JOB ID: [id number] Quality ID # [id number]: Final reports with documentation of one or more dose reduction techniques (e.g., Au tomated exposure control, adjustment of the mA and/or kV according to patient size, use of iterative reconstruction technique) 2010 [employer]- All Rights Reserved
[2016-11-19] MEDS ORDERED: ALBUTEROL SULFATE HFA (90 MCG/PUFF) 200 PUFF/8.5 GM MDI IH ONE (16:41)
[2016-11-19] MEDS ORDERED: LORAZEPAM INJ 2 MG/1 ML VIAL IV ONE (16:42)
[2016-11-19 16:46] LABS: URINE BARBITURATES SCREEN NEGATIVE; URINE METHADONE SCREEN NEGATIVE; URINE OPIATES LOW NEGATIVE; URINE PHENCYCLIDINE SCREEN NEGATIVE
[2016-11-19 17:25] VITALS: BP 104/80
--- NOTE | 2016-11-19 18:28 | EKG REPORT ---
SEVERITY:- ABNORMAL ECG - SINUS TACHYCARDIA VENTRICULAR PREMATURE COMPLEX PROBABLE LEFT ATRIAL ABNORMALITY INFERIOR INFARCT, AGE INDETERMINATE LATERAL INFARCT, AGE INDETERMINATE CONSIDER ANTERIOR INFARCT : Confirmed by: Yogesh Caldera MD 19-Nov-2016 18:27:30
--- NOTE | 2016-11-19 19:23 | CONSULTATION REPORT E ---
Consultation Report NAME: ADAIR MARTINES : 1960 AGE: 55Y DATE: 11/19/2016 TO: SPARKLE VIDAL NP FROM: Dorita MARTEL, Requesting Physician PRIMARY CARE PROVIDER: Tricia Correa MD OUTPATIENT SPECIAL EVENTS PLANNER: Rd Johnson MD CHIEF COMPLAINT: Shortness of breath. HISTORY OF PRESENT ILLNESS: The patient is a 55-year-old -[place] male with a past medical history of cardiomyopathy and cocaine use. The patient is well-known to the hospital service. The patient presented to the emergency department via EMS after being picked up for being quite dyspneic. The patient was just discharged from the hospital today where he was not dyspneic, not hypoxic, nor wheezing. The patient also stated that he was unable to move more than a few steps before getting tired, was having difficulty to complete sentences. While in the emergency department the patient did have a CT of the head which revealed old infarctions as well as a CTA of the chest which did not reveal anything remarkable and the patient's case was discussed by the emergency room provider regarding the specifics of the case given that the patient was recently discontinued and a consultation has been requested. PAST MEDICAL HISTORY: 1. Chronic systolic congestive heart failure. 2. Coronary artery disease. 3. Hyperlipidemia. 4. Hypertension. 5. Chronic obstructive pulmonary disease. 6. Medical noncompliance. 7. Daily cocaine use. 8. Questionable alcohol dependency. PAST SURGICAL HISTORY: Cardiac catheterization x3 with coronary stent. ALLERGIES: No known drug allergies. HOME MEDICATIONS: 1. Albuterol 2.5 mg inhalation q.4 hours p.r.n. 2. Ventolin HFA one puff inhalation q.4 hours p.r.n. 3. Digoxin 0.125 mg p.o. daily. 4. Doxycycline 100 mg p.o. q.12 hours. 5. Lasix 20 mg p.o. b.i.d. 6. Lisinopril 5 mg p.o. daily. 7. Singulair 10 mg p.o. q. hour of sleep. 8. Prednisone taper. SOCIAL HISTORY: The patient currently resides at home, however, that is in question at this time as the patient has had some conflict with family. The patient is disabled due to cardiac reasons. The patient does smoke at variant frequencies, sometimes up to a pack a day and sometimes not at all. The patient does drink alcohol though would not quantify specifics on this. The patient does have a history of illicit drug use including marijuana but daily cocaine use. FAMILY MEDICAL HISTORY: Positive for coronary artery disease in multiple family members as well as hypertension. The patient does have siblings who are healthy. The patient does not have children. REVIEW OF SYSTEMS: CONSTITUTIONAL: The patient denies any fevers, chills, dizziness. No loss of appetite. Does admit to some weakness. INTEGUMENTARY: Denies any diaphoresis, rashes, bruising, itching. HEENT: Denies any vision change, hearing loss, nose drainage, sore throat. No headache. CARDIOVASCULAR: Denies any chest pain, edema, heart palpitations. RESPIRATORY: The patient admits to shortness of breath. Denies any cough, sputum production, or hemoptysis. GASTROINTESTINAL: Denies any nausea, vomiting, abdominal pain, bloody hematemesis, constipation, melena, or hematochezia. GENITOURINARY: Denies any hematuria, polyuria, or dysuria. MUSCULOSKELETAL: Denies acute or chronic joint pain. NEUROLOGIC: No seizures, tremors, or loss of consciousness. HEMATOLOGIC: Denies any nunu bleeding, easy bruising. ENDOCRINE: Denies any recent weight changes. PSYCHIATRIC: Denies suicidal or homicidal ideation. The rest of the review of the other organ systems is negative. PHYSICAL EXAMINATION: GENERAL: On examination the patient is a well-developed, well-nourished, 55-year-old -[place] male who is awake, alert, and oriented to person, place, time, and situation. He is verbal, conversational, able to fully complete sentences, does not appear to be in any acute distress. VITAL SIGNS: As follows; temperature 97.7, pulse 96, respirations 22 these were counted myself, oxygen saturation is 98% on room air, blood pressure is 130/95. SKIN: Warm and dry; no rash, not diaphoretic. HEENT: Pupils equal, round reactive to light and accommodation. Conjunctivae are pink. No JVP. CARDIOVASCULAR: Heart is regular with no murmur or rub. CHEST: Clear, symmetrical, unlabored. ABDOMEN: Soft, nontender, nondistended. BACK: No CVA tenderness or sacral edema. EXTREMITIES: No clubbing, cyanosis, edema. PSYCHIATRIC: Odd affect which is his baseline. DIAGNOSTICS: Lab values are as follows; hematology obtained on 11/19/2016: WBC is 10.2, hemoglobin 31, hematocrit is 39.9, platelet count is 236,000. Chemistry obtained on 11/19/2016: Sodium is 138, potassium 4.6, chloride is 108, carbon dioxide 19, BUN 25, creatinine is 1.01, glucose 137, calcium 9.0, bilirubin is 1.4, AST 76, ALT 126, alk-phos 126. CK 78, CK-MB is 0.90, troponin is 0.012. Chest x-ray was suggestive of cardiomegaly. Urinalysis obtained on 11/19/2016: Color is yellow, appearance clear, pH is 5.0, specific gravity is 1.012, protein 30, glucose negative, ketones negative, occult blood small, nitrite negative, bilirubin negative, urobilinogen negative, leukocyte esterase negative, WBC 0, RBC 0, mucus rare, ascorbic acid is negative. IMPRESSION AND PLAN: 1. Chronic obstructive pulmonary disease. The patient stated that he got home and had not gone to the drugstore to get his medications and, therefore, did not have an inhaler or nebulizer. The patient states that he would like an inhaler. We will give the patient now a dose of inhaler that way he can take this home with him and have it available with him at all times. The patient is not wheezing. He does have a prescription for prednisone as well and follow. 2. Chronic systolic congestive heart failure. The patient has no evidence of volume overload at this time. I have encouraged the patient to continue his home medications. He is not taking a beta terrie given his cocaine use. 3. Cocaine use. The patient has been counseled regarding this and the patient has no desire to quit. 4. Hypertension. The patient's blood pressures are overall much improved. We will continue home medications. 5. General anxiety disorder with panic. The patient stated that he panicked when he realized that he did not have his medications. This may be also compounded by the patient's substance use. Have given the patient a dose of benzodiazepine and he is quite eager for discharge. CODE STATUS: The patient is a full code. DISPOSITION: The patient can be discharged to home as previous with followup. Consulted geriatric social work professor to help navigate this. The patient will be able to take his inhaler home with him and the patient will followup with his primary care provider within one week for hospital followup. TIME SPENT: On this consultation including assessment, plan, physical examination, patient education, and collaboration is 40 minutes. DICTATING PHYSICIAN: SPARKLE VIDAL NP [id number] PHY#: [id number] ID: [id number] JOB#: [id number] ACCT: [id number] cc:SPARKLE VIDAL NP >
== END 2016-11-19 19:00 | disposition home or self-care (01) ==
LOC: ER 13:40
DX: J44.1 Chronic obstructive pulmonary disease with (acute) exacerbation (principal); I42.0 Dilated cardiomyopathy; I25.10 Atherosclerotic heart disease of native coronary artery without angina pectoris; I11.0 Hypertensive heart disease with heart failure; I50.22 Chronic systolic (congestive) heart failure; F41.9 Anxiety disorder, unspecified; R06.02 Shortness of breath; R05 Cough; Z95.0 Presence of cardiac pacemaker; F17.210 Nicotine dependence, cigarettes, uncomplicated; Z82.49 Family history of ischemic heart disease and other diseases of the circulatory system; F41.1 Generalized anxiety disorder; Z79.899 Other long term (current) drug therapy
CPT/HCPCS: 93005; 94640 ×2; 99285; 96374; 36415; 87040; 82553; 80307 ×2; 82550; 85025; 80053; 81001; 84484; 82803; 83880; 71010; 70450; 71275; 93010; J2060; J3490; A9270; J7620

== ENCOUNTER 2016-11-24 22:15 | Emergency (ER) | payer MEDICARE, MEDICAID ==
[2016-11-24] MEDS ORDERED: ASPIRIN 81 MG TABLET, CHEWABLE PO ONE (22:17)
[2016-11-24 22:33] LABS: ABSOLUTE BASOPHILS # (AUTO) 0.1 10^3/uL (0.0-0.2); ABSOLUTE EOSINOPHILS # (AUTO) 0.1 10^3/uL (0.0-0.6); ABSOLUTE LYMPHOCYTES (AUTO) 4.3 10^3/uL (0.5-4.7); ABSOLUTE MONOCYTES (AUTO) 1.1 10^3/uL (0.1-1.4); ABSOLUTE NEUT (AUTO) 7.3 10^3/uL (1.7-8.2); LYMPHOCYTES % (AUTO) 32.9 % (13-45); MEAN CORPUSCULAR HEMOGLOBIN 29.3 pg (27.0-33.4); MEAN CORPUSCULAR HGB CONC 32.4 g/dL (32.0-36.0); MEAN CORPUSCULAR VOLUME 91 fl (80-97); MONOCYTES % (AUTO) 8.8 % (3-13); RED BLOOD COUNT 4.09 10^6/uL (4.35-5.55); RED CELL DISTRIBUTION WIDTH 19.1 % (11.5-14.0); SEGMENTED NEUTROPHILS % (AUTO) 56.3 % (42-78)
[2016-11-24 22:41] LABS: PROTHROMBIN TIME 15.4 SEC (11.4-15.4)
[2016-11-24 22:55] LABS: ALANINE AMINOTRANSFERASE 111 U/L (21-72); ALKALINE PHOSPHATASE 108 U/L (38-126); ANION GAP 9 (5-19); ASPARTATE AMINO TRANSFERASE 108 U/L (17-59); BILIRUBIN,DIRECT 0.4 mg/dL (0.0-0.4); BILIRUBIN,TOTAL 0.7 mg/dL (0.2-1.3); BLOOD UREA NITROGEN 30 mg/dL (7-20); CALCIUM 8.2 mg/dL (8.4-10.2); CARBON DIOXIDE 27 mmol/L (22-30); CHLORIDE 108 mmol/L (98-107); CREATINE KINASE 118 U/L (55-170); CREATININE RESULT 1.32 mg/dL (0.52-1.25); GLUCOSE 118 mg/dL (75-110); POTASSIUM 4.1 mmol/L (3.6-5.0); SODIUM 143.5 mmol/L (137-145); TOTAL PROTEIN 5.9 g/dL (6.3-8.2)
--- NOTE | 2016-11-24 22:55 | ER Document Report ---
ED General - General Stated Complaint: POSSIBLE DEFIBRILLATOR MALFUNCTION Time Seen by Provider: 11/24/16 22:35 Notes: Patient is a 55-year-old male with past medical history of nonischemic cardiomyopathy, EF less than 35% status post AICD placement who presents after his AICD fired 3 times. Patient states that this happened once in the past in May 2016 but not since that time. He is currently taking digoxin as well as carvedilol for rate control and denies any missed medications. Denies any drug or alcohol use today. States that he did not have any symptoms prior to the firing of the AICD. He denies any symptoms at the time of my assessment including chest pain, shortness of breath, nausea or vomiting. He has not contacted his medical coding auditor regarding today's concerns. Nothing improves or worsens his symptoms. TRAVEL OUTSIDE OF THE [place] IN LAST 30 DAYS: No - Related Data Allergies/Adverse Reactions: No Known Allergies Allergy (Verified 11/19/16 14:46) Past Medical History - General Information source: Patient - Social History Smoking Status: Current Every Day Smoker Frequency of alcohol use: Occasional Lives with: Alone Family History: CAD, Hypertension - Past Medical History Cardiac Medical History: Reports: Hx Congestive Heart Failure - Systolic, Hx Coronary Artery Disease, Hx Hypercholesterolemia, Hx Hypertension Denies: Hx Atrial Fibrillation, Hx DVT, Hx Pulmonary Embolism Pulmonary Medical History: Reports: Hx Bronchitis, Hx COPD Denies: Hx Sleep Apnea, Hx Tuberculosis Neurological Medical History: Denies: Hx Seizures Endocrine Medical History: Denies: Hx Diabetes Mellitus Type 1, Hx Diabetes Mellitus Type 2, Hx Hyperthyroidism, Hx Hypothyroidism Renal/ Medical History: Denies: Hx Peritoneal Dialysis GI Medical History: Denies: Hx Cirrhosis, Hx Gastroesophageal Reflux Disease, Hx Hepatitis Musculoskeltal Medical History: Reports Hx Arthritis Psychiatric Medical History: Denies: Hx Depression Infectious Medical History: Denies: Hx Hepatitis Past Surgical History: Reports: Hx Cardiac Catheterization - x3, Hx Cardiac Surgery - pacemaker, Hx Coronary Stent - Immunizations Immunizations up to date: Yes Hx Diphtheria, Pertussis, Tetanus Vaccination: Yes Hx Pneumococcal Vaccination: 11/12/12 Review of Systems - Review of Systems Notes: Constitutional: Negative for fever. HENT: Negative for sore throat. Eyes: Negative for visual changes. Cardiovascular: Negative for chest pain. Respiratory: Negative for shortness of breath. Gastrointestinal: Negative for abdominal pain, vomiting or diarrhea. Genitourinary: Negative for dysuria. Musculoskeletal: Negative for back pain. Skin: Negative for rash. Neurological: Negative for headaches, weakness or numbness. 10 point ROS negative except as marked above and in HPI. Physical Exam - Vital signs Vitals: Pulse Ox 99 11/24/16 22:17 Interpretation: Normal Notes: PHYSICAL EXAMINATION: GENERAL: Well-appearing, well-nourished and in no acute distress. HEAD: Atraumatic, normocephalic. EYES: Pupils equal round and reactive to light, extraocular movements intact, sclera anicteric, conjunctiva are normal. ENT: nares patent, oropharynx clear without exudates. Moist mucous membranes. NECK: Normal range of motion, supple without lymphadenopathy LUNGS: Breath sounds clear to auscultation bilaterally and equal. No wheezes rales or rhonchi. HEART: Regular rate and rhythm, 2 out of 6 systolic ejection murmur ABDOMEN: Soft, nontender, normoactive bowel sounds. No guarding, no rebound. No masses appreciated. EXTREMITIES: Normal range of motion, no pitting or edema. No cyanosis. NEUROLOGICAL: No focal neurological deficits. Moves all extremities spontaneously and on command. PSYCH: Normal mood, normal affect. SKIN: Warm, Dry, normal turgor, no rashes or lesions noted. Course - Re-evaluation Re-evalutation: 11/24/16 22:52 Patient presents with 3 episodes of defib an unclear rhythm at this time, well in appearance and in no distress. He is taking digoxin and carvedilol for rate and rhythm control. States he has not missed any of these medications. He is hemodynamically within normal limits at time of my assessment. I discussed this case with Dr. Johnson who recommends transfer to [facility] for elective physiology evaluation. Will contact him for transfer after labs have returned 11/24/16 23:59 I have discussed with Dr. Vazquez at [facility] who accepts the patient for transfer. Patient remained calm, relaxed vitals within normal limits. No additional AICD firings. Laboratories show an indeterminate troponin at 0.074, mild acute kidney injury no other acute findings 0215-transport has arrived for transfer the patient. He is stable for transfer at this time - Vital Signs Vital signs: Temp Pulse Resp BP Pulse Ox 98.1 F 23 H 94/66 L 100 08/06/17 22:19 11/25/16 02:01 11/25/16 02:01 11/25/16 02:01 - Laboratory Result Diagrams: 11/24/16 20:20 11/24/16 20:20 Laboratory results interpreted by me: 11/24/16 11/24/16 20:20 20:20 WBC 13.0 H RBC 4.09 L Hgb 12.0 L Hct 37.0 L RDW 19.1 H Chloride 108 H BUN 30 H Creatinine 1.32 H Est GFR (Non-Af Amer) 56 L Glucose 118 H Calcium 8.2 L AST 108 H ALT 111 H Total Protein 5.9 L Albumin 3.0 L - Diagnostic Test Radiology reviewed: Image reviewed, Reports reviewed Radiology results interpreted by me: 11/25/16 03:20 Chest x-ray: No acute infiltrate or pneumothorax - EKG Interpretation by Me Additional EKG results interpreted by me: 11/25/16 03:20 EKG shows sinus tachycardia, rate 100. No ST elevations or depressions. QTC is 467 Discharge - Discharge Clinical Impression: Dilated cardiomyopathy, AICD discharge Condition: Fair Disposition: [facility]
[2016-11-24 23:07] LABS: CREATINE KINASE MB 1.99 ng/mL (<4.55)
[2016-11-24 23:10] LABS: TROPONIN I 0.074 ng/mL
--- NOTE | 2016-11-24 23:26 | RADIOLOGY REPORT (SQ) ---
EXAM DESCRIPTION: CHEST SINGLE VIEW COMPLETED DATE/TIME: 11/24/2016 11:13 pm REASON FOR STUDY: cp COMPARISON: 11/19/2016 EXAM PARAMETERS: NUMBER OF VIEWS: One view. TECHNIQUE: Single frontal radiographic view of the chest acquired. RADIATION DOSE: NA LIMITATIONS: None. FINDINGS: LUNGS AND PLEURA: Small area of airspace disease in the right medial lung base. Linear at electasis in the left midlung. No significant effusion. No pneumothorax. MEDIASTINUM AND HILAR STRUCTURES: Stable. HEART AND VASCULAR STRUCTURES: Stable cardiomegaly. BONES: No acute findings. HARDWARE: Single lead cardiac defibrillator. OTHER: No other significant finding. IMPRESSION: Small area of airspace disease in the right medial lung base. Linear atelectasis in the left midlung. No significant effusion. Similar cardiomegaly. TECHNICAL DOCUMENTATION: JOB ID: [id number]
[2016-11-25 02:05] VITALS: BP 94/66
--- NOTE | 2016-11-25 07:55 | EKG REPORT ---
SEVERITY:- ABNORMAL ECG - SINUS TACHYCARDIA VENTRICULAR PREMATURE COMPLEX PROBABLE LEFT ATRIAL ABNORMALITY INFERIOR INFARCT, AGE INDETERMINATE LATERAL INFARCT, AGE INDETERMINATE : Confirmed by: Rd Johnson 25-Nov-2016 07:54:46
== END 2016-11-25 02:20 | disposition short-term general hospital (02) ==
LOC: ER 22:15
DX: I42.0 Dilated cardiomyopathy (principal); Z95.810 Presence of automatic (implantable) cardiac defibrillator; N17.9 Acute kidney failure, unspecified; I25.10 Atherosclerotic heart disease of native coronary artery without angina pectoris; I10 Essential (primary) hypertension; F17.200 Nicotine dependence, unspecified, uncomplicated; Z82.49 Family history of ischemic heart disease and other diseases of the circulatory system; Z79.899 Other long term (current) drug therapy; R00.0 Tachycardia, unspecified
CPT/HCPCS: 93005; 99285; 36415; 82553; 82550; 85025; 85610; 80053; 84484; 71010; 93010; A9270

== ENCOUNTER 2017-01-01 13:40 | Emergency (ER) | payer MEDICARE, MEDICAID ==
[2017-01-01 13:45] VITALS: BP 116/92
--- NOTE | 2017-01-01 13:52 | ER Document Report ---
ED Respiratory Problem - General Chief Complaint: Shortness Of Breath Stated Complaint: SHORTNESS OF BREATH Time Seen by Provider: 01/01/17 13:49 Mode of Arrival: Ambulatory Information source: Patient TRAVEL OUTSIDE OF THE [place] IN LAST 30 DAYS: No - HPI Patient complains to provider of: COPD, Cough, Short of breath - pt with h/o COPD who ocntinues to smoke with c/o cough and some SOB for the past 2-3 days. Denies fever - Related Data Allergies/Adverse Reactions: No Known Allergies Allergy (Verified 01/01/17 13:44) Past Medical History - General Information source: Patient - Social History Smoking Status: Current Every Day Smoker Cigarette use (# per day): Yes Chew tobacco use (# tins/day): No Smoking Education Provided: Yes Family History: CAD, Hypertension - Past Medical History Cardiac Medical History: Reports: Hx Congestive Heart Failure - Systolic, Hx Coronary Artery Disease, Hx Hypercholesterolemia, Hx Hypertension Denies: Hx Atrial Fibrillation, Hx DVT, Hx Pulmonary Embolism Pulmonary Medical History: Reports: Hx Bronchitis, Hx COPD Denies: Hx Sleep Apnea, Hx Tuberculosis Neurological Medical History: Denies: Hx Seizures Endocrine Medical History: Denies: Hx Diabetes Mellitus Type 1, Hx Diabetes Mellitus Type 2, Hx Hyperthyroidism, Hx Hypothyroidism Renal/ Medical History: Denies: Hx Peritoneal Dialysis GI Medical History: Denies: Hx Cirrhosis, Hx Gastroesophageal Reflux Disease, Hx Hepatitis Musculoskeltal Medical History: Reports Hx Arthritis Psychiatric Medical History: Denies: Hx Depression Infectious Medical History: Denies: Hx Hepatitis Past Surgical History: Reports: Hx Cardiac Catheterization - x3, Hx Cardiac Surgery - pacemaker, Hx Coronary Stent - Immunizations Immunizations up to date: Yes Hx Diphtheria, Pertussis, Tetanus Vaccination: Yes Hx Pneumococcal Vaccination: 11/12/12 Review of Systems - Review of Systems Constitutional: No symptoms reported EENT: No symptoms reported Cardiovascular: No symptoms reported Respiratory: See HPI, Cough, Short of breath -: Yes All other systems reviewed and negative Physical Exam - Vital signs Vitals: Temp Pulse Resp BP Pulse Ox 98.4 F 101 H 18 116/92 H 97 01/01/17 13:44 01/01/17 13:44 01/01/17 13:44 01/01/17 13:44 01/01/17 13:44 - General General appearance: Appears well In distress: None - HEENT Head: Normocephalic Pharynx: Normal Neck: Normal - Respiratory Respiratory status: No respiratory distress Breath sounds: Normal - Cardiovascular Rhythm: Regular Heart sounds: Normal auscultation - Abdominal Inspection: Normal Bowel sounds: Normal Course - Vital Signs Vital signs: Temp Pulse Resp BP Pulse Ox 98.4 F 101 H 18 116/92 H 97 01/01/17 13:44 01/01/17 13:44 01/01/17 13:44 01/01/17 13:44 01/01/17 13:44 - Diagnostic Test Radiology reviewed: Reports reviewed - nad Discharge - Discharge Clinical Impression: Bronchitis Condition: Stable Disposition: HOME, SELF-CARE Additional Instructions: rest, stop smoking, take meds as prescribed, return if worse Prescriptions: Azithromycin [Zithromax Tri-Leland] 500 mg PO DAILY #1 pkg Referrals: VAMSI MATIAS MD [ACTIVE STAFF] - Follow up as needed
--- NOTE | 2017-01-01 14:42 | RADIOLOGY REPORT (SQ) ---
EXAM DESCRIPTION: CHEST PA/LAT COMPLETED DATE/TIME: 01/01/2017 2:26 pm REASON FOR STUDY: cough/SOB COMPARISON: Two-view chest 05/23/2016, 04/07/2016 AP chest 11/24/2016 CT angio chest 11/19/2016 EXAM PARAMETERS: NUMBER OF VIEWS: two views TECHNIQUE: Digital Frontal and Lateral radiographic views of the chest acquired. RADIATION DOSE: NA LIMITATIONS: none FINDINGS: LUNGS AND PLEURA: No opacities, masses or pneumothorax. No pleural effusion. MEDIASTINUM AND HILAR STRUCTURES: No masses or contour abnormalities. HEART AND VASCULAR STRUCTURES: Stable massive cardiomegaly. BONES: No acute findings. HARDWARE: Left-sided single lead pacemaker unchanged OTHER: No other significant finding. IMPRESSION: Cardiomegaly and single lead pacemaker. No acute findings TECHNICAL DOCUMENTATION: JOB ID: [id number] [employer]- All Rights Reserved
== END 2017-01-01 14:50 | disposition home or self-care (01) ==
LOC: ER 13:40
DX: J40 Bronchitis, not specified as acute or chronic (principal); R06.02 Shortness of breath; J44.9 Chronic obstructive pulmonary disease, unspecified; R05 Cough; F17.210 Nicotine dependence, cigarettes, uncomplicated
CPT/HCPCS: 71020; 99284

== ENCOUNTER 2017-01-02 17:06 | Emergency (ER) | payer MEDICARE, MEDICAID ==
--- NOTE | 2017-01-02 17:37 | ER Document Report ---
ED Medical Screen (RME) - General Chief Complaint: Anxiety Stated Complaint: PANIC ATTACK Time Seen by Provider: 01/02/17 17:35 Mode of Arrival: Ambulatory Information source: Patient Notes: 56-year-old male presents to ED for shortness of breath anxiety. He states that he gets anxious that he gets so bad that he loses control of her bowel bladder. He states he is short of breath all the time. He states he has a heart doctor and a kidney doctor. He has a history of bronchitis CHF high blood pressure cholesterol arthritis COPD and he has had a cardiac cath and a pacemaker. He states he is here today for anxiety and he does not feel safe at home. I have greeted and performed a rapid initial assessment of this patient. A comprehensive ED assessment and evaluation of the patient, analysis of test results and completion of medical decision making process will be conducted by an additional ED providers. TRAVEL OUTSIDE OF THE [place] IN LAST 30 DAYS: No - Related Data Allergies/Adverse Reactions: No Known Allergies Allergy (Verified 01/02/17 17:29) Past Medical History - Social History Chew tobacco use (# tins/day): No Frequency of alcohol use: None Drug Abuse: None - Past Medical History Cardiac Medical History: Reports: Hx Congestive Heart Failure - Systolic, Hx Coronary Artery Disease, Hx Hypercholesterolemia, Hx Hypertension Denies: Hx Atrial Fibrillation, Hx DVT, Hx Pulmonary Embolism Pulmonary Medical History: Reports: Hx Bronchitis, Hx COPD Denies: Hx Sleep Apnea, Hx Tuberculosis Neurological Medical History: Denies: Hx Seizures Endocrine Medical History: Denies: Hx Diabetes Mellitus Type 1, Hx Diabetes Mellitus Type 2, Hx Hyperthyroidism, Hx Hypothyroidism Renal/ Medical History: Denies: Hx Peritoneal Dialysis GI Medical History: Denies: Hx Cirrhosis, Hx Gastroesophageal Reflux Disease, Hx Hepatitis Musculoskeltal Medical History: Reports Hx Arthritis Psychiatric Medical History: Denies: Hx Depression Infectious Medical History: Denies: Hx Hepatitis Past Surgical History: Reports: Hx Cardiac Catheterization - x3, Hx Cardiac Surgery - pacemaker/defib, Hx Coronary Stent - Immunizations Immunizations up to date: Yes Hx Diphtheria, Pertussis, Tetanus Vaccination: Yes Physical Exam - Vital signs Vitals: Temp Pulse Resp BP Pulse Ox 98.0 F 94 22 H 103/69 100 01/02/17 17:26 01/02/17 17:26 01/02/17 17:26 01/02/17 17:26 01/02/17 17:26 Course - Vital Signs Vital signs: Temp Pulse Resp BP Pulse Ox 98.0 F 94 22 H 103/69 100 01/02/17 17:26 01/02/17 17:26 01/02/17 17:26 01/02/17 17:26 01/02/17 17:26 Doctor's Discharge - Discharge Instructions: Anxiety ([facility])
--- NOTE | 2017-01-02 18:40 | RADIOLOGY REPORT (SQ) ---
EXAM DESCRIPTION: CHEST PA/LAT COMPLETED DATE/TIME: 01/02/2017 6:26 pm REASON FOR STUDY: short of breath COMPARISON: 01/01/2017 EXAM PARAMETERS: NUMBER OF VIEWS: two views TECHNIQUE: Digital Frontal and Lateral radiographic views of the chest acquired. RADIATION DOSE: NA LIMITATIONS: none FINDINGS: LUNGS AND PLEURA: The lungs are hyperexpanded. There is no infiltrate or effusion. There is no mass. MEDIASTINUM AND HILAR STRUCTURES: No masses or contour abnormalities. HEART AND VASCULAR STRUCTURES: Cardiomegaly with mild pulmonary vascular prominence but no pulmonary edema. BONES: No acute findings. HARDWARE: Pacemaker/defibrillator on the left. OTHER: No other significant finding. IMPRESSION: Cardiomegaly without CHF. Chronic lung changes. TECHNICAL DOCUMENTATION: JOB ID: [id number] [employer]- All Rights Reserved
[2017-01-02 18:56] LABS: ABSOLUTE BASOPHILS # (AUTO) 0.1 10^3/uL (0.0-0.2); ABSOLUTE EOSINOPHILS # (AUTO) 0.1 10^3/uL (0.0-0.6); ABSOLUTE MONOCYTES (AUTO) 0.4 10^3/uL (0.1-1.4); ABSOLUTE NEUT (AUTO) 2.9 10^3/uL (1.7-8.2); HEMATOCRIT 43.4 % (37.9-51.0); HEMOGLOBIN 14.1 g/dL (13.5-17.0); HGB HCT DIFFERENCE -1.1; LYMPHOCYTES % (AUTO) 36.5 % (13-45); MEAN CORPUSCULAR HEMOGLOBIN 29.8 pg (27.0-33.4); MEAN CORPUSCULAR HGB CONC 32.5 g/dL (32.0-36.0); MEAN CORPUSCULAR VOLUME 92 fl (80-97); MONOCYTES % (AUTO) 7.9 % (3-13); RED BLOOD COUNT 4.72 10^6/uL (4.35-5.55); RED CELL DISTRIBUTION WIDTH 20.4 % (11.5-14.0); SEGMENTED NEUTROPHILS % (AUTO) 53.6 % (42-78); WHITE BLOOD COUNT 5.4 10^3/uL (4.0-10.5)
[2017-01-02 19:07] LABS: ALANINE AMINOTRANSFERASE 69 U/L (21-72); ALBUMIN 4.1 g/dL (3.5-5.0); ALKALINE PHOSPHATASE 125 U/L (38-126); ANION GAP 10 (5-19); ASPARTATE AMINO TRANSFERASE 98 U/L (17-59); BILIRUBIN,DIRECT 0.5 mg/dL (0.0-0.4); BILIRUBIN,TOTAL 2.2 mg/dL (0.2-1.3); BLOOD UREA NITROGEN 26 mg/dL (7-20); CALCIUM 9.3 mg/dL (8.4-10.2); CARBON DIOXIDE 24 mmol/L (22-30); CHLORIDE 106 mmol/L (98-107); CREATININE RESULT 1.51 mg/dL (0.52-1.25); GLUCOSE 131 mg/dL (75-110); POTASSIUM 5.2 mmol/L (3.6-5.0); SODIUM 140.4 mmol/L (137-145); TOTAL PROTEIN 6.8 g/dL (6.3-8.2)
[2017-01-02] MEDS ORDERED: ALBUTEROL SULFATE 0.083% NEB 2.5 MG/3 ML AMPUL NEB ONE (19:59)
[2017-01-02] MEDS ORDERED: ALBUTEROL SULFATE HFA (90 MCG/PUFF) 8 GM MDI (1 MDI/ER DISP) IH PRN (20:48)
--- NOTE | 2017-01-02 20:48 | ER Document Report ---
ED General - General Chief Complaint: Anxiety Stated Complaint: PANIC ATTACK Time Seen by Provider: 01/02/17 17:35 Mode of Arrival: Ambulatory Information source: Patient Notes: Patient is a 56-year-old male with a history of anxiety, heart attack, CHF, COPD who presents to the ER today for anxiety attack this morning. Patient states that he was here yesterday and that his defibrillator went off while he was here in the emergency department yesterday and that that is giving him anxiety. He denies of the defibrillator has gone off since. He denies any increased swelling, chest pain, fevers, chills, cough. He states that he has been wheezing but that that is normal for him. He admits to shortness of breath is also normal for him. TRAVEL OUTSIDE OF THE [place] IN LAST 30 DAYS: No - Related Data Allergies/Adverse Reactions: No Known Allergies Allergy (Verified 01/02/17 17:29) Past Medical History - General Information source: Patient - Social History Smoking Status: Former Smoker Chew tobacco use (# tins/day): No Frequency of alcohol use: None Drug Abuse: None Family History: CAD, Hypertension - Past Medical History Cardiac Medical History: Reports: Hx Congestive Heart Failure - Systolic, Hx Coronary Artery Disease, Hx Hypercholesterolemia, Hx Hypertension Denies: Hx Atrial Fibrillation, Hx DVT, Hx Pulmonary Embolism Pulmonary Medical History: Reports: Hx Bronchitis, Hx COPD Denies: Hx Sleep Apnea, Hx Tuberculosis Neurological Medical History: Denies: Hx Seizures Endocrine Medical History: Denies: Hx Diabetes Mellitus Type 1, Hx Diabetes Mellitus Type 2, Hx Hyperthyroidism, Hx Hypothyroidism Renal/ Medical History: Denies: Hx Peritoneal Dialysis GI Medical History: Denies: Hx Cirrhosis, Hx Gastroesophageal Reflux Disease, Hx Hepatitis Musculoskeltal Medical History: Reports Hx Arthritis Psychiatric Medical History: Denies: Hx Depression Infectious Medical History: Denies: Hx Hepatitis Past Surgical History: Reports: Hx Cardiac Catheterization - x3, Hx Cardiac Surgery - pacemaker/defib, Hx Coronary Stent - Immunizations Immunizations up to date: Yes Hx Diphtheria, Pertussis, Tetanus Vaccination: Yes Hx Pneumococcal Vaccination: 11/12/12 Review of Systems - Review of Systems Constitutional: No symptoms reported EENT: No symptoms reported Cardiovascular: See HPI Respiratory: See HPI Gastrointestinal: No symptoms reported Genitourinary: No symptoms reported Male Genitourinary: No symptoms reported Musculoskeletal: No symptoms reported Skin: No symptoms reported Hematologic/Lymphatic: No symptoms reported Neurological/Psychological: See HPI Physical Exam - Vital signs Vitals: Temp Pulse Resp BP Pulse Ox 98.0 F 94 22 H 103/69 100 01/02/17 17:26 01/02/17 17:26 01/02/17 17:26 01/02/17 17:26 01/02/17 17:26 - Notes Notes: PHYSICAL EXAMINATION: GENERAL: Chronically ill-appearing, but in no acute distress. HEAD: Atraumatic, normocephalic. EYES: Pupils equal round and reactive to light, extraocular movements intact, sclera anicteric, conjunctiva are normal. NECK: Normal range of motion, supple without lymphadenopathy LUNGS: Mild expiratory wheezes, no rales or rhonchi. HEART: Regular rate and rhythm without murmurs ABDOMEN: Soft, no tenderness. No guarding, no rebound BACK: no vertebral tenderness, normal ROM GI/: no CVA tenderness EXTREMITIES: Normal range of motion, no pitting edema. No cyanosis. NEUROLOGICAL: Cranial nerves grossly intact. Normal sensory/motor exams. PSYCH: Normal mood, normal affect. SKIN: Warm, Dry, normal turgor, no rashes or lesions noted Course - Re-evaluation Re-evalutation: 01/02/17 20:47 Lab work is unremarkable today. Patient was given albuterol treatment. Was positive for cocaine last time he was here. I did advise him to stop using cocaine, that it is not good for his cardiac issues. I did not give him anything for anxiety today as he seems very calm in the room with me and not anxious at all. He did not appear short of breath at all with normal vital signs. Chest x-ray reveals no acute pathology, no vascularization or pneumonia. - Vital Signs Vital signs: Temp Pulse Resp BP Pulse Ox 98.0 F 94 22 H 103/69 100 01/02/17 17:26 01/02/17 17:26 01/02/17 17:26 01/02/17 17:26 01/02/17 17:26 - Laboratory Result Diagrams: 01/02/17 18:42 01/02/17 18:42 Laboratory results interpreted by me: 01/02/17 01/02/17 18:42 18:42 RDW 20.4 H Potassium 5.2 H BUN 26 H Creatinine 1.51 H Est GFR ( Amer) 58 L Est GFR (Non-Af Amer) 48 L Glucose 131 H Total Bilirubin 2.2 H Direct Bilirubin 0.5 H AST 98 H Discharge - Discharge Clinical Impression: COPD exacerbation, Anxiety Condition: Stable Disposition: HOME, SELF-CARE Instructions: Anxiety ([facility]) Additional Instructions: Please stop using cocaine as it may be the reason your defibrillator went off yesterday. Return immediately for any new or worsening symptoms. Follow up with primary care provider, call tomorrow to make followup appointment.
[2017-01-02 21:53] VITALS: BP 98/81
== END 2017-01-02 21:53 | disposition home or self-care (01) ==
LOC: ER 17:06
DX: J44.1 Chronic obstructive pulmonary disease with (acute) exacerbation (principal); F41.9 Anxiety disorder, unspecified; I50.9 Heart failure, unspecified; I11.0 Hypertensive heart disease with heart failure; J44.9 Chronic obstructive pulmonary disease, unspecified; I25.2 Old myocardial infarction; Z87.891 Personal history of nicotine dependence; Z95.810 Presence of automatic (implantable) cardiac defibrillator
CPT/HCPCS: 94640; 99284; 36415; 85025; 80053; 71020; A9270; J3490

== ENCOUNTER 2017-02-06 19:49 | Emergency (ER) | payer MEDICARE, MEDICAID ==
--- NOTE | 2017-02-06 20:26 | EKG REPORT ---
SEVERITY:- ABNORMAL ECG - SINUS RHYTHM INFERIOR INFARCT, OLD CONSIDER ANTERIOR INFARCT : Confirmed by: Nayely Rodriguez MD 06-Feb-2017 20:25:54
[2017-02-06] MEDS ORDERED: LORAZEPAM 1 MG TABLET PO ONE (20:41)
--- NOTE | 2017-02-06 20:42 | RADIOLOGY REPORT (SQ) ---
EXAM DESCRIPTION: CHEST SINGLE VIEW COMPLETED DATE/TIME: 02/06/2017 8:32 pm REASON FOR STUDY: cp COMPARISON: 01/02/2017. NUMBER OF VIEWS: One view. TECHNIQUE: Single frontal radiographic view of the chest acquired. LIMITATIONS: None. FINDINGS: LUNGS AND PLEURA: No opacities, masses or pneumothorax. No pleural effusion. MEDIASTINUM AND HILAR STRUCTURES: No masses. Contour normal. HEART AND VASCULAR STRUCTURES: Heart enlarged without failure. Normal vasculature. BONES: No acute findings. HARDWARE: Pacemaker. OTHER: No other significant finding. IMPRESSION: HEART ENLARGED WITHOUT FAILURE. NO OTHER SIGNIFICANT RADIOGRAPHIC FINDING IN THE CHEST. TECHNICAL DOCUMENTATION: JOB ID: [id number] [employer]- All Rights Reserved
--- NOTE | 2017-02-06 20:42 | ER Document Report ---
ED General - General Chief Complaint: Anxiety Stated Complaint: CHEST PRESSURE Time Seen by Provider: 02/06/17 20:29 Notes: Patient is a 56-year-old male that comes by EMS for chief complaint of chest pressure for the past 2 days and also an episode at about 8 PM where his defibrillator fired, he states just prior to his defibrillator going off he felt lightheaded, states that after it fired he felt temporarily normal again. He was given 324 mg ASA and one SL nitroglycerin by EMS. Past medical history of dilated cardiomyopathy, AICD, also takes metoprolol and digoxin. He states that he was seen by his media reporter yesterday for his chest pressure and was cleared and told it was most likely anxiety. Patient agrees with this, he has a history of anxiety. Patient states he has been very anxious frequently at home although he is not sure why. He also states that he has a congested cough. He denies fever or chills, shortness of breath. He has a [place] AICD. TRAVEL OUTSIDE OF THE [place] IN LAST 30 DAYS: No - Related Data Allergies/Adverse Reactions: No Known Allergies Allergy (Verified 01/02/17 17:29) Home Medications: Current Home Medications Alfuzosin HCl [Alfuzosin HCl ER] 10 mg PO ONCE PRN 02/07/17 [History] Atorvastatin Calcium [Atorvastatin Calcium] 40 mg PO ONCE PRN 02/07/17 [History] Buspirone HCl [Buspirone HCl] 10 mg PO TID PRN 02/07/17 [History] Carvedilol [Carvedilol] 12.5 mg PO BID 02/07/17 [History] Montelukast Sodium [Montelukast Sodium] 10 mg PO ONCE 02/07/17 [History] Naproxen [Naproxen] 500 mg PO Q12 PRN 02/07/17 [History] Torsemide [Torsemide] 10 mg PO ONCE PRN 02/07/17 [History] Past Medical History - General Information source: Patient - Social History Smoking Status: Current Some Day Smoker Frequency of alcohol use: None Drug Abuse: Cocaine Lives with: Alone Family History: CAD, Hypertension Patient has suicidal ideation: No Patient has homicidal ideation: No - Past Medical History Cardiac Medical History: Reports: Hx Congestive Heart Failure - Systolic, Hx Coronary Artery Disease, Hx Hypercholesterolemia, Hx Hypertension Denies: Hx Atrial Fibrillation, Hx DVT, Hx Pulmonary Embolism Pulmonary Medical History: Reports: Hx Bronchitis, Hx COPD Denies: Hx Sleep Apnea, Hx Tuberculosis Neurological Medical History: Denies: Hx Seizures Endocrine Medical History: Denies: Hx Diabetes Mellitus Type 1, Hx Diabetes Mellitus Type 2, Hx Hyperthyroidism, Hx Hypothyroidism Renal/ Medical History: Denies: Hx Peritoneal Dialysis GI Medical History: Denies: Hx Cirrhosis, Hx Gastroesophageal Reflux Disease, Hx Hepatitis Musculoskeltal Medical History: Reports Hx Arthritis Psychiatric Medical History: Denies: Hx Depression Infectious Medical History: Denies: Hx Hepatitis Past Surgical History: Reports: Hx Cardiac Catheterization - x3, Hx Cardiac Surgery - pacemaker/defib, Hx Coronary Stent - Immunizations Immunizations up to date: Yes Hx Diphtheria, Pertussis, Tetanus Vaccination: Yes Hx Pneumococcal Vaccination: 11/12/12 Review of Systems - Review of Systems Constitutional: No symptoms reported EENT: No symptoms reported Cardiovascular: See HPI Respiratory: No symptoms reported Gastrointestinal: No symptoms reported Genitourinary: No symptoms reported Male Genitourinary: No symptoms reported Musculoskeletal: No symptoms reported Skin: No symptoms reported Hematologic/Lymphatic: No symptoms reported Neurological/Psychological: See HPI Physical Exam - Vital signs Vitals: Pulse Ox 91 L 02/06/17 19:52 Interpretation: Normal - General General appearance: Anxious In distress: None - HEENT Head: Normocephalic, Atraumatic Eyes: Normal Pupils: PERRL - Respiratory Respiratory status: No respiratory distress Chest status: Nontender Breath sounds: Normal. No: Nonproductive cough, Wheezing Chest palpation: Normal - Cardiovascular Rhythm: Regular. No: Tachycardia Heart sounds: Normal auscultation, S1 appreciated, S2 appreciated Murmur: No - Abdominal Inspection: Normal Distension: No distension Bowel sounds: Normal Tenderness: Nontender Organomegaly: No organomegaly - Back Back: Normal, Nontender. No: Tender - Extremities General upper extremity: Normal inspection, Nontender, Normal color, Normal ROM , Normal temperature General lower extremity: Normal inspection, Nontender, Normal color, Normal ROM , Normal temperature, Normal weight bearing. No: Waldemar's sign - Neurological Neuro grossly intact: Yes Cognition: Normal Orientation: AAOx4 [place] Coma Scale Eye Opening: Spontaneous [place] Coma Scale Verbal: Oriented [place] Coma Scale Motor: Obeys Commands [place] Coma Scale Total: 15 Speech: Normal Motor strength normal: LUE, RUE, LLE, RLE Sensory: Normal - Psychological Associated symptoms: Anxious - Skin Skin Temperature: Warm Skin Moisture: Dry Skin Color: Normal Course - Re-evaluation Re-evalutation: Chest x-ray with cardiomegaly and no acute findings. Lungs clear to exam. No edema on exam in the lower extremities. EKG showing sinus rhythm at a rate of 75 with inferior Q waves, no T-wave inversions in consecutive leads or ST segment changes, no significant change from prior. Patient hyperventilating slightly in the room, he does appear to be anxious, he was given Ativan by mouth and afterwards he did report he was asymptomatic. On reevaluation patient continues to be asymptomatic and well-appearing. Interrogation of AICD was performed. Patient apparently had a ventricular rate of 225 this a.m., 2 unsuccessful shocks were applied and the third successful shock had been applied. Patient also had a shock and response to ventricular tachycardia this evening just prior to arrival. Discussed with Dr. Diaz. Called and spoke with Dr. Johnson, patient's media reporter. Troponin indeterminate at 0.037. Recommendation because of patient's chest pain and multiple firing of AICD device is for patient to be transferred back to [facility] for treatment at tertiary care center with potential electrophysiology and interventional cardiology treatments. 02/07/17 00:53 Spoke with Gracy Vilchis PA-C with cardiology at [facility]. She recommends based on his magnesium level of one-point and they be given magnesium for a goal of 2.0, she also requests a urine drug screen because patient has done cocaine in the past, requests that if patient has not done cocaine that he be accepted by Dr. Dimitris Tapia cardiology, and if patient has done cocaine that he be admitted to the hospitalist service at [facility]. Urine drug screen pending. Urine drug screen is positive for cocaine, patient and told me he had quit, he tells me now that he used 3 days ago but now he has quit. 02/07/17 02:[address] Jacobs, Internal Medicine at [facility]. Patient will be accepted to their facility. Patient is in full agreement with this plan. 02/07/17 06:10 Patient with no additional complaints, vital signs unremarkable, patient now has a room assignment, transport will be here at about 7:30 AM. 02/07/17 07:27 EMS team is here, vital signs unchanged, patient reevaluated at bedside, patient stable for transfer. - Vital Signs Vital signs: Temp Pulse Resp BP Pulse Ox 98.2 F 38 H 107/77 100 02/07/17 05:16 02/07/17 07:00 02/07/17 07:01 02/07/17 07:01 - Laboratory Result Diagrams: 02/06/17 20:45 02/06/17 22:14 Laboratory results interpreted by me: 02/06/17 02/06/17 02/06/17 20:45 22:14 22:14 RDW 18.4 H PT 16.9 H BUN 27 H Glucose 112 H Total Bilirubin 2.7 H Direct Bilirubin 0.6 H Total Protein 5.8 L Albumin 3.3 L Discharge - Discharge Clinical Impression: Defibrillator discharge, Cocaine abuse, Dilated cardiomyopathy Chest pain Qualifiers: Chest pain type: unspecified Qualified Code(s): R07.9 - Chest pain, unspecified Condition: Stable Disposition: [facility] Instructions: Anxiety ([facility])
[2017-02-06 21:10] LABS: ABSOLUTE BASOPHILS # (AUTO) 0.1 10^3/uL (0.0-0.2); ABSOLUTE EOSINOPHILS # (AUTO) 0.1 10^3/uL (0.0-0.6); ABSOLUTE LYMPHOCYTES (AUTO) 2.9 10^3/uL (0.5-4.7); ABSOLUTE MONOCYTES (AUTO) 0.6 10^3/uL (0.1-1.4); ABSOLUTE NEUT (AUTO) 3.4 10^3/uL (1.7-8.2); BASOPHILS % (AUTO) 1.4 % (0-2); EOSINOPHILS % (AUTO) 1.6 % (0-6); HEMATOCRIT 48.7 % (37.9-51.0); HGB HCT DIFFERENCE -0.7; LYMPHOCYTES % (AUTO) 40.3 % (13-45); MEAN CORPUSCULAR HEMOGLOBIN 29.7 pg (27.0-33.4); MEAN CORPUSCULAR HGB CONC 32.8 g/dL (32.0-36.0); MEAN CORPUSCULAR VOLUME 91 fl (80-97); MONOCYTES % (AUTO) 8.9 % (3-13); RED BLOOD COUNT 5.38 10^6/uL (4.35-5.55); RED CELL DISTRIBUTION WIDTH 18.4 % (11.5-14.0); SEGMENTED NEUTROPHILS % (AUTO) 47.8 % (42-78); WHITE BLOOD COUNT 7.1 10^3/uL (4.0-10.5)
[2017-02-06 22:43] LABS: PROTHROMBIN TIME 16.9 SEC (11.4-15.4)
[2017-02-06 22:50] LABS: ALANINE AMINOTRANSFERASE 56 U/L (21-72); ALBUMIN 3.3 g/dL (3.5-5.0); ALKALINE PHOSPHATASE 98 U/L (38-126); ANION GAP 12 (5-19); ASPARTATE AMINO TRANSFERASE 34 U/L (17-59); BILIRUBIN,DIRECT 0.6 mg/dL (0.0-0.4); BILIRUBIN,TOTAL 2.7 mg/dL (0.2-1.3); BLOOD UREA NITROGEN 27 mg/dL (7-20); CALCIUM 8.6 mg/dL (8.4-10.2); CARBON DIOXIDE 24 mmol/L (22-30); CHLORIDE 107 mmol/L (98-107); CREATINE KINASE 105 U/L (55-170); GLUCOSE 112 mg/dL (75-110); POTASSIUM 3.8 mmol/L (3.6-5.0); SODIUM 142.5 mmol/L (137-145); TOTAL PROTEIN 5.8 g/dL (6.3-8.2)
[2017-02-06 23:00] LABS: CREATINE KINASE MB 0.56 ng/mL (<4.55); TROPONIN I 0.037 ng/mL
[2017-02-07] MEDS ORDERED: MAGNESIUM SULFATE/D5W 1 GM/100 ML RTUPB IV ONE (00:49)
[2017-02-07 02:03] LABS: URINE BARBITURATES SCREEN NEGATIVE; URINE METHADONE SCREEN NEGATIVE; URINE OPIATES LOW NEGATIVE; URINE PHENCYCLIDINE SCREEN NEGATIVE
[2017-02-07] MEDS ORDERED: LORAZEPAM 1 MG TABLET PO ONE (07:26)
[2017-02-07 07:54] VITALS: BP 107/77
== END 2017-02-07 07:55 | disposition short-term general hospital (02) ==
LOC: ER 19:49
DX: F14.10 Cocaine abuse, uncomplicated (principal); I42.0 Dilated cardiomyopathy; F41.9 Anxiety disorder, unspecified; R07.9 Chest pain, unspecified; F17.200 Nicotine dependence, unspecified, uncomplicated; I25.10 Atherosclerotic heart disease of native coronary artery without angina pectoris; E78.00 Pure hypercholesterolemia, unspecified; I11.0 Hypertensive heart disease with heart failure; J44.9 Chronic obstructive pulmonary disease, unspecified; Z95.810 Presence of automatic (implantable) cardiac defibrillator
CPT/HCPCS: 93005; 99285; 36415; 82553; 80307 ×2; 82550; 83735; 85025; 85610; 80053; 84484; 71010; 93010; J3475; A9270 ×2

== ENCOUNTER 2017-05-23 22:38 | Emergency (ER) | payer MEDICARE, MEDICAID ==
[~2017-05-23 22:38] MED LIST: AMIODARONE HCL INJ 150 MG/3 ML VIAL IV ONE; EPINEPHRINE INJ 1 MG/10 ML DISP.SYRIN ONE; SODIUM BICARBONATE 8.4% INJ 50 MEQ/50 ML DISP.SYRIN ONE
--- NOTE | 2017-05-24 03:39 | ER Document Report ---
ED General - General Chief Complaint: Cardiac Arrest Stated Complaint: POSSIBLE CARDIAC ARREST Cannot obtain history due to: Unstable vital signs, Other - Coding Notes: Patient is a 56-year-old male who arrives after a period of cardiac arrest with appropriate ACLS protocol in the field. He arrives intubated, weak pulses. No additional history can be obtained as EMS notes the only history was provided by his neighbor who found him sitting in his vehicle, unresponsive. The neighbor apparently reported a strong history for the patient of having a heart condition. TRAVEL OUTSIDE OF THE [place] IN LAST 30 DAYS: No - Related Data Allergies/Adverse Reactions: No Known Allergies Allergy (Verified 02/20/17 13:59) Past Medical History - General Information source: Emergency Med Personnel, [facility] Records Cannot obtain history due to: Unstable vital signs - Social History Smoking Status: Current Every Day Smoker Frequency of alcohol use: Heavy Drug Abuse: Cocaine Family History: CAD, Hypertension - Past Medical History Cardiac Medical History: Reports: Hx Congestive Heart Failure - Systolic, Hx Coronary Artery Disease, Hx Hypercholesterolemia, Hx Hypertension Denies: Hx Atrial Fibrillation, Hx DVT, Hx Pulmonary Embolism Pulmonary Medical History: Reports: Hx Bronchitis, Hx COPD Denies: Hx Sleep Apnea, Hx Tuberculosis Neurological Medical History: Denies: Hx Seizures Endocrine Medical History: Denies: Hx Diabetes Mellitus Type 1, Hx Diabetes Mellitus Type 2, Hx Hyperthyroidism, Hx Hypothyroidism Renal/ Medical History: Denies: Hx Peritoneal Dialysis GI Medical History: Denies: Hx Cirrhosis, Hx Gastroesophageal Reflux Disease, Hx Hepatitis Musculoskeltal Medical History: Reports Hx Arthritis Psychiatric Medical History: Denies: Hx Depression Infectious Medical History: Denies: Hx Hepatitis Past Surgical History: Reports: Hx Cardiac Catheterization - x3, Hx Cardiac Surgery - pacemaker/defib, Hx Coronary Stent - Immunizations Immunizations up to date: Yes Hx Diphtheria, Pertussis, Tetanus Vaccination: Yes Hx Pneumococcal Vaccination: 11/12/12 Review of Systems - Review of Systems -: Yes ROS unobtainable due to patient's medical condition Physical Exam - Vital signs Notes: PHYSICAL EXAMINATION: GENERAL: Unresponsive, intubated. HEAD: Atraumatic, normocephalic. EYES: sclera anicteric, conjunctiva are normal. Pupils fixed, dilated ENT: ET tube in place NECK: No lymphadenopathy LUNGS: Breath sounds present bilaterally HEART: Absent pulses, echocardiogram with cardiac standstill on initial presentation Abdomen: No distention or rigidity EXTREMITIES: no pitting or edema. No cyanosis. NEUROLOGICAL: GCS 3 T PSYCH: Unable to assess SKIN: Cool skin, poor turgor Course - Re-evaluation Re-evalutation: 05/24/17 2320 Documentation is delayed secondary to the acuity of this patient. I was at the bedside for the entire duration of his time in the emergency department. The patient did present in a sinus bradycardia, with a pressure after being coded in the field for approximately 40 minutes with recurrent ventricular fibrillation and tachycardia. He had a code initiated the field a 2153 and arrived to the hospital at 2230. On arrival, patient lost pulses almost immediately. Bedside echocardiogram confirmed cardiac standstill. ACLS protocols were immediately initiated. On his initial rhythm check he was found to be in ventricular tachycardia. Patient had received 200 mg of lidocaine in the field. He was shocked without conversion and standard protocol was continued. He did receive a total of 300 mg of amiodarone and a 1 mg/min infusion of amiodarone. An epinephrine infusion was initiated. He received 2 A of bicarbonate as well as 3 g of calcium gluconate. We proceeded with standard ACLS protocols and patient consistently was in either ventricular fibrillation or ventricular tachycardia each rhythm check. He received a total of 5 different defibrillations at 200 J. At that point we moved to using dual sequential shocking as patient continued to have a shockable rhythm. We did then perform a total of 4 dual sequential shocks again failing to move the patient out of a rhythm of either ventricular tachycardia or fibrillation on each check. After a total of 35 minutes of code time patient continues to be without a pulse. Bedside echocardiogram showed cardiac standstill. Time of was declared at 2302. I did then speak to the sister and brother who are the closest next of kin regarding the patient's and his course in the emergency department. - Laboratory Laboratory results interpreted by me: 05/23/17 22:46 POC Glucose 122 H Critical Care Note - Critical Care Note Total time excluding time spent on procedures (mins): 40 Comments: Critical care time spent obtaining history from EMS, actively at the bedside running the code for greater than 30 minutes, discussing with family the care of this patient. Discharge - Discharge Clinical Impression: Cardiac arrest, Systolic CHF, chronic Disposition:
== END 2017-05-24 02:05 | disposition expired ==
LOC: ER 22:38
DX: I46.9 Cardiac arrest, cause unspecified (principal); I50.22 Chronic systolic (congestive) heart failure; F17.200 Nicotine dependence, unspecified, uncomplicated
CPT/HCPCS: 99291; 92950; 82962; J0171; J3490; J0282